=== PATIENT | female | born 1975 | race Hispanic/Latino ===

== ENCOUNTER 2018-09-03 10:06 | Emergency (ER) | payer MEDICAID, OTHER ==
[2018-09-03] MEDS: NS 1,000 ML IV (11:10)
[2018-09-03] MEDS: KETOROLAC 30 MG/ML VIAL (J1885) IV (11:11)
[2018-09-03] MEDS: diphenhydrAMINE INJ 50MG/ML VIAL (J1200) IV (11:13)
[2018-09-03] MEDS: METOCLOPRAMIDE INJ 10MG/2ML VIAL (J2765) IV (11:14)
== END 2018-09-03 13:03 | disposition home or self-care (01) ==
LOC: M ED 10:06
DX: G43.909 Migraine, unspecified, not intractable, without status migrainosus (principal); G43.709 Chronic migraine without aura, not intractable, without status migrainosus; Z86.73 Personal history of transient ischemic attack (TIA), and cerebral infarction without residual deficits; E03.9 Hypothyroidism, unspecified; Z88.8 Allergy status to other drugs, medicaments and biological substances; Z88.5 Allergy status to narcotic agent; Z88.1 Allergy status to other antibiotic agents; Z88.2 Allergy status to sulfonamides; Z79.890 Hormone replacement therapy
CPT/HCPCS: J1200

== ENCOUNTER → 2018-11-13 | Outpatient (REF) | payer MEDICAID ==
[~2018-11-13] MED LIST: AMIT10TA PO; FIOR1CAP PO; LEVO75TA4 PO
[2018-11-13 13:24] LABS: BASO # 0.1 10^3/uL (0.0-0.2); BASO % 0.7 % (0.0-1.0); EOS # 0.3 10^3/uL (0.0-0.50); EOS % 2.9 % (0.0-3.0); HEMATOCRIT 38.3 % (36.0-47.0); HEMOGLOBIN 12.3 g/dl (12.0-15.5); LYMPH # 1.8 10^3/uL (1.5-4.5); LYMPH % 20.1 % (24.0-44.0); MEAN CORPUSCULAR HEMOGLOBIN 28.3 pg (27.0-33.0); MEAN CORPUSCULAR HGB CONC 32.1 g/dl (32.0-36.5); MONO # 0.5 10^3/uL (0.0-0.8); MONO % 5.7 % (0.0-5.0); NEUTROPHILS # 6.4 10^3/uL (1.8-7.7); NEUTROPHILS % 69.8 % (36.0-66.0); PLATELET COUNT, AUTOMATED 312 10^3/uL (150-450); RED BLOOD COUNT 4.35 10^6/uL (4.00-5.40); WHITE BLOOD COUNT 9.1 10^3/uL (4.0-10.0)
[2018-11-13 13:26] LABS: ALBUMIN 3.6 GM/DL (3.2-5.2); ALT/SGPT 18 U/L (12-78); BILIRUBIN,TOTAL 0.3 MG/DL (0.2-1.0); BLOOD UREA NITROGEN 10 MG/DL (7-18); CALCIUM LEVEL 8.8 MG/DL (8.5-10.1); CARBON DIOXIDE LEVEL 28 MEQ/L (21-32); CHLORIDE LEVEL 105 MEQ/L (98-107); CHOLESTEROL LEVEL 167 MG/DL (<200); CHOLESTEROL RISK RATIO 3.711 (<5); CREATININE FOR GFR 0.75 MG/DL (0.55-1.30); FREE T4 0.92 NG/DL (0.76-1.46); GLOMERULAR FILTRATION RATE > 60.0 (>58); GLUCOSE, FASTING 86 MG/DL (70-100); HDL CHOLESTEROL 45 MG/DL (>40); LDL CHOLESTEROL 97 MG/DL (<100); NON-HDL-C 122 MG/DL; POTASSIUM SERUM 4.2 MEQ/L (3.5-5.1); SODIUM LEVEL 140 MEQ/L (136-145); TOTAL PROTEIN 7.2 GM/DL (6.4-8.2); TRIGLYCERIDES LEVEL 126 MG/DL (<150)
[2018-11-13 15:32] LABS: TOTAL 25(OH) VITAMIN D 18.2 NG/ML (30.0-100.0)
[2018-11-13 16:00] LABS: HEMOGLOBIN A1c 5.5 %
== END ==
LOC: M SFHCPLAZ 08:43
PROVIDERS: ATTEND Nurse Practitioner Family
DX: Z13.228 Encounter for screening for other metabolic disorders (principal); E03.9 Hypothyroidism, unspecified; E55.9 Vitamin D deficiency, unspecified

== ENCOUNTER → 2018-12-23 | Outpatient (REF) | payer MEDICAID ==
[2018-12-23 13:19] LABS: CK-MB VALUE MASS < 1.0 NG/ML (<3.6); CPK CREATINE PHOSPHOKINASE 50 U/L (26-192); TROPONIN I < 0.02 NG/ML (< 0.10)
== END ==
LOC: M SFHCPLAZ 09:32
PROVIDERS: ATTEND Nurse Practitioner Family
DX: R07.89 Other chest pain (principal)

== ENCOUNTER → 2019-03-18 | Outpatient (REF) | payer OTHER ==
[2019-03-18 12:20] LABS: BASO # 0.1 10^3/uL (0.0-0.2); BASO % 0.8 % (0.0-1.0); EOS # 0.3 10^3/uL (0.0-0.50); EOS % 3.5 % (0.0-3.0); HEMATOCRIT 39.1 % (36.0-47.0); HEMOGLOBIN 12.3 g/dl (12.0-15.5); LYMPH # 1.8 10^3/uL (1.5-4.5); LYMPH % 21.1 % (24.0-44.0); MEAN CORPUSCULAR HEMOGLOBIN 27.5 pg (27.0-33.0); MEAN CORPUSCULAR HGB CONC 31.5 g/dl (32.0-36.5); MEAN CORPUSCULAR VOLUME 87.3 fl (80.0-96.0); MONO # 0.6 10^3/uL (0.0-0.8); MONO % 7.1 % (0.0-5.0); NEUTROPHILS # 5.7 10^3/uL (1.8-7.7); NEUTROPHILS % 67.1 % (36.0-66.0); PLATELET COUNT, AUTOMATED 343 10^3/uL (150-450); RED BLOOD COUNT 4.48 10^6/uL (4.00-5.40); WHITE BLOOD COUNT 8.6 10^3/uL (4.0-10.0)
[2019-03-18 13:02] LABS: ALBUMIN 3.4 GM/DL (3.2-5.2); ALT/SGPT 21 U/L (12-78); BILIRUBIN,TOTAL 0.6 MG/DL (0.2-1.0); BLOOD UREA NITROGEN 10 MG/DL (7-18); CALCIUM LEVEL 8.6 MG/DL (8.5-10.1); CARBON DIOXIDE LEVEL 30 MEQ/L (21-32); CHLORIDE LEVEL 103 MEQ/L (98-107); CREATININE FOR GFR 0.73 MG/DL (0.55-1.30); FREE T4 0.94 NG/DL (0.76-1.46); GLOMERULAR FILTRATION RATE > 60.0 (>58); GLUCOSE, FASTING 76 MG/DL (70-100); POTASSIUM SERUM 4.1 MEQ/L (3.5-5.1); SODIUM LEVEL 139 MEQ/L (136-145); TOTAL PROTEIN 7.5 GM/DL (6.4-8.2)
[2019-03-18 13:08] LABS: TOTAL 25(OH) VITAMIN D 42.7 NG/ML (30.0-100.0)
== END ==
LOC: M SFHCPLAZ 10:09
PROVIDERS: ATTEND Nurse Practitioner Family
DX: Z13.228 Encounter for screening for other metabolic disorders (principal); E03.9 Hypothyroidism, unspecified; E55.9 Vitamin D deficiency, unspecified

== ENCOUNTER → 2019-04-27 | Outpatient (REF) | payer OTHER ==
[2019-04-29 14:29] LABS: HPV HYBRID CAPTURE II Positive (Negative)
== END ==
LOC: M SFHCPLAZ 10:35
PROVIDERS: ATTEND Nurse Practitioner Family
DX: Z01.419 Encounter for gynecological examination (general) (routine) without abnormal findings (principal)

== ENCOUNTER → 2019-04-30 | Outpatient (CLI) | payer OTHER ==
--- NOTE | 2019-05-01 00:15 | REP ---
Clinical: Menorrhagia . Technique: Transabdominal pelvic ultrasound followed by transvaginal examination for better evaluation of the endometrium and adnexa with color Doppler evaluation of the ovaries. Findings: Bladder is unremarkable and measures 7.5 x 4.3 x 5.2 cm . Anteverted uterus measures 10.4 x 5.8 x 6.4 cm with left submucosal fibroid measuring 4.2 x 3.5 x 2.6 cm . The endometrial complex measures 5.6 mm thickness. No discrete uterine or endometrial abnormalities are appreciated. Nabothian cysts noted. Bilateral ovaries are normal in appearance and vascularity without evidence for torsion. Right ovary measures 3.0 x 1.6 x 2.5 cm ; R I = 0.41 . Left ovary measures 2.3 x 1.4 x 2.0 ; R I = 0.60 . No pelvic fluid or adnexal mass lesion . Impression: 1. Anteverted uterus with 4.2 cm submucosal fibroid.
--- NOTE | 2019-06-01 08:38 | REPMRS ---
Patient History The patient states she had a clinical breast exam in 03/2019. No known family history of cancer. Digital Woman Screen Mammo: April 30, 2019 - Exam #: [id number] Bilateral CC and MLO view(s) were taken. Technologist: Georgette Jacobson, Technologist No prior studies available for comparison. FINDINGS: There are scattered fibroglandular densities. Attempts at retrieving outside prior radiographs were unsuccessful as of the dated this to interpretation. There is no evidence of dominant mass, architectural distortion, or grouped microcalcification typical of malignancy. 3-D tomosynthesis shows no additional findings. Assessment: BI-RADS/ACR category 1 mammogram. Negative Mammogram. Recommendation Routine screening mammogram of both breasts in 1 year (for women over age 40). This patient's Lifetime Breast Cancer RIsk is estimated at 11.6 %. This mammogram was interpreted with the aid of an FDA-approved computer-aided dectection system. Electronically Signed By: Jorje Nolasco MD 06/01/19 0837
== END ==
LOC: M WHC 10:46
PROVIDERS: ATTEND Nurse Practitioner Family
DX: Z12.31 Encounter for screening mammogram for malignant neoplasm of breast (principal); D25.0 Submucous leiomyoma of uterus; N92.0 Excessive and frequent menstruation with regular cycle

== ENCOUNTER 2019-07-10 07:47 | Emergency (ER) | payer MEDICAID, OTHER ==
[~2019-07-10] VITALS: Ht 152.4 cm; Wt 72.7 kg
[2019-07-10] MEDS ORDERED: ASPI81TA85 PO (08:13)
[2019-07-10] MEDS ORDERED: VITA500045 PO (08:13)
[2019-07-10 08:40] LABS: BASO # 0.1 10^3/uL (0.0-0.2); EOS # 0.7 10^3/uL (0.0-0.5); EOS % 7.3 % (0.0-3.0); HEMOGLOBIN 12.4 g/dl (12.0-15.5); LYMPH % 20.9 % (24.0-44.0); MEAN CORPUSCULAR HEMOGLOBIN 28.1 pg (27.0-33.0); MEAN CORPUSCULAR HGB CONC 32.6 g/dl (32.0-36.5); MONO # 0.6 10^3/uL (0.0-0.8); MONO % 6.1 % (0.0-5.0); NEUTROPHILS # 6.2 10^3/uL (1.5-8.5); NEUTROPHILS % 64.3 % (36.0-66.0); PLATELET COUNT, AUTOMATED 280 10^3/uL (150-450); RED BLOOD COUNT 4.42 10^6/uL (4.00-5.40); WHITE BLOOD COUNT 9.6 10^3/uL (4.0-10.0)
[2019-07-10 09:08] LABS: ALBUMIN 3.5 GM/DL (3.2-5.2); ALT/SGPT 24 U/L (12-78); BILIRUBIN,DIRECT < 0.1 MG/DL (0.0-0.2); BILIRUBIN,TOTAL 0.3 MG/DL (0.2-1.0); BLOOD UREA NITROGEN 12 MG/DL (7-18); CARBON DIOXIDE LEVEL 24 MEQ/L (21-32); CHLORIDE LEVEL 105 MEQ/L (98-107); CREATININE FOR GFR 0.87 MG/DL (0.55-1.30); GLOMERULAR FILTRATION RATE > 60.0 (>58); GLUCOSE, FASTING 86 MG/DL (70-100); LIPASE 138 U/L (73-393); POTASSIUM SERUM 3.7 MEQ/L (3.5-5.1); SODIUM LEVEL 140 MEQ/L (136-145); TOTAL PROTEIN 7.2 GM/DL (6.4-8.2)
--- NOTE | 2019-07-10 09:09 | REP ---
CHEST: Two views. There is no evidence of acute infiltrate. No pleural effusion is seen. The heart is normal in size. The mediastinal silhouette is unremarkable. The visualized osseous structures are intact. IMPRESSION: No acute pulmonary disease. Electronically Signed by González Hanson MD 07/10/2019 06:26 P
[2019-07-10 09:10] LABS: MONO SCRN NEGATIVE (NEGATIVE)
[2019-07-10] MEDS ORDERED: ISOVUE-370 76% 100ML VIAL (Q9967) As Ordered ONE (09:24)
[2019-07-10] MEDS ORDERED: NS 1,000 ML IV ONE (10:15)
[2019-07-10] MEDS ORDERED: ONDANSETRON 4MG/2ML VIAL (J2405) IV ONE (10:15)
--- NOTE | 2019-07-10 10:40 | REP ---
CT abdomen and pelvis with IV contrast: TECHNIQUE: Axial contrast enhanced images from the lung bases to the pubic symphysis using 100 mL Isovue 370 intravenous contrast material with multiplanar reformations. Visualized lung bases are clear. The liver demonstrates focal fatty infiltration along the fissure for ligamentum teres with no evidence of mass. The patient has had prior cholecystectomy. There is no biliary dilatation identified. The spleen is normal in size with no intrinsic abnormality. The adrenals and pancreas are unremarkable. There is a 2 mm intrarenal calculus in the upper pole of the right kidney without right hydronephrosis. There is mild left hydronephrosis. There is a large calculus in the left renal pelvis, which measures approximately 1.3 x 1.6 cm. There is a smaller adjacent calculus just superior to this in the left renal collecting system and another in the lower pole. There is no abdominal aortic aneurysm. There is no adenopathy. There is no free air or free fluid. There is no bowel wall thickening. The appendix is normal. There appears to be an anterior uterine fibroid approximately 2.5 cm in diameter. No ovarian mass is seen. Physiologic amount of free fluid is seen in the pelvis. The urinary bladder is mildly distended and grossly unremarkable. IMPRESSION: There is a 2 mm calculus in the upper pole of the right renal collecting system. There are three calculi in the left renal collecting system, largest is in the renal pelvis measuring approximately 1.3 x 1.6 cm. There is very mild left hydronephrosis. The appendix is normal. Tiny amount of physiologic free fluid is seen in the pelvis. No ovarian mass is seen. There is an anterior uterine fibroid. Electronically Signed by González Hanson MD 07/10/2019 06:41 P
[2019-07-10] MEDS ORDERED: KETOROLAC 30 MG/ML VIAL (J1885) IV ONE (11:00)
[2019-07-10] MEDS ORDERED: NITROFURANTOIN (MACROBID) 100 MG CAP PO ONE (11:45)
[2019-07-10] MEDS ORDERED: FLOM0.4C39 PO (12:03)
[2019-07-10] MEDS ORDERED: MACR100C43 PO (12:03)
[2019-07-10 12:23] VITALS: BP 130/62
[2019-07-23] MEDS ORDERED: ACET1TAB16 PO (12:54)
[2019-07-23] MEDS ORDERED: ZOFR4TAB16 PO (12:54)
[2019-07-23] MEDS ORDERED: AMIT25TA PO (12:54)
== END 2019-07-10 12:25 | disposition home or self-care (01) ==
LOC: M ED 07:47
DX: N20.0 Calculus of kidney (principal); E03.9 Hypothyroidism, unspecified; Z79.82 Long term (current) use of aspirin; Z79.899 Other long term (current) drug therapy; Z88.5 Allergy status to narcotic agent; Z88.6 Allergy status to analgesic agent; Z88.8 Allergy status to other drugs, medicaments and biological substances
CPT/HCPCS: 36415; 71046; 74177; 80048; 80076; 81001; 83690; 85025; 85379; 86308; 87086; 96361; 96374; 96375; 99284; J1885; J2405; Q9967

== ENCOUNTER → 2019-07-27 | Outpatient (REF) | payer OTHER ==
[~2019-07-27] MED LIST changes: +ACET1TAB16 PO; +AMIT25TA PO; +ASPI81TA85 PO; +DILA2TAB6 PO; +FLOM0.4C39 PO; +KETO10TAB PO; +MACR100C43 PO; +MACR50CA10 PO; +NITR50CA34 PO; +OXYB-54 PO; +PYRI1TAB5 PO; +TYLETAB14 PO; +VITA500045 PO; +ZOFR4TAB16 PO
[2019-07-27 14:25] LABS: APPEARANCE, URINE CLEAR (CLEAR); BACTERIA, URINE AUTO 1+ (NEGATIVE); BILIRUBIN, URINE AUTO NEGATIVE (NEGATIVE); BLOOD, URINE BLOOD 2+ (NEGATIVE); CALCIUM OXALATE CRYSTALS SMALL; COLOR, URINE YELLOW (YELLOW); GLUCOSE, URINE (UA) AUTO NEGATIVE (NEGATIVE); KETONE, URINE AUTO NEGATIVE (NEGATIVE); LEUKOCYTE ESTERASE, URINE AUTO 1+ (NEGATIVE); MUCUS, URINE SMALL (NEGATIVE); NITRITE, URINE AUTO NEGATIVE (NEGATIVE); PROTEIN, URINE AUTO 1+ mg/dL (NEGATIVE); RBC, URINE AUTO 6 /HPF (0-3); SQUAMOUS EPITHELIAL CELL UR AU 2 /HPF (0-6); UROBILINOGEN, URINE AUTO 0.2 mg/dL (0.0-2.0); WBC, URINE AUTO 26 /HPF (0-3)
== END ==
LOC: M SMT 12:34
PROVIDERS: ATTEND Nurse Practitioner Women's Health
DX: R30.0 Dysuria (principal)

== ENCOUNTER → 2019-07-29 | Outpatient (REF) | payer OTHER, MEDICAID ==
[~2019-07-29] MED LIST changes: -DILA2TAB6 PO; -MACR50CA10 PO; -NITR50CA34 PO; -OXYB-54 PO; -PYRI1TAB5 PO; -TYLETAB14 PO
== END ==
LOC: M LAB REF 17:43
PROVIDERS: ATTEND Obstetrics & Gynecology
DX: N93.9 Abnormal uterine and vaginal bleeding, unspecified (principal)

== ENCOUNTER → 2019-07-31 | Outpatient (CLI) | payer OTHER ==
[~2019-07-31] MED LIST changes: +MACR50CA10 PO; +OXYB5TAB2 PO; +PYRI1TAB5 PO; +TYLETAB14 PO
[2019-07-31 13:41] LABS: HEMATOCRIT 39.2 % (36.0-47.0); HEMOGLOBIN 12.3 g/dl (12.0-15.5); MEAN CORPUSCULAR HEMOGLOBIN 27.1 pg (27.0-33.0); MEAN CORPUSCULAR HGB CONC 31.4 g/dl (32.0-36.5); MEAN CORPUSCULAR VOLUME 86.3 fl (80.0-96.0); PLATELET COUNT, AUTOMATED 365 10^3/uL (150-450); RED BLOOD COUNT 4.54 10^6/uL (4.00-5.40); WHITE BLOOD COUNT 9.2 10^3/uL (4.0-10.0)
[2019-07-31 13:52] LABS: INR 0.99; PROTHROMBIN TIME 12.8 SECONDS (11.8-14.0)
[2019-07-31 13:53] LABS: PARTIAL THROMBOPLASTIN TIME 30.1 SECONDS (25.0-38.4)
[2019-07-31 14:04] LABS: HCG, SERUM QUALITATIVE NEGATIVE (NEGATIVE)
[2019-07-31 14:05] LABS: BLOOD UREA NITROGEN 11 MG/DL (7-18); CALCIUM LEVEL 9.2 MG/DL (8.5-10.1); CARBON DIOXIDE LEVEL 30 MEQ/L (21-32); CHLORIDE LEVEL 103 MEQ/L (98-107); CREATININE FOR GFR 0.96 MG/DL (0.55-1.30); GLOMERULAR FILTRATION RATE > 60.0 (>58); GLUCOSE, FASTING 87 MG/DL (70-100); POTASSIUM SERUM 4.2 MEQ/L (3.5-5.1); SODIUM LEVEL 138 MEQ/L (136-145)
--- NOTE | 2019-08-01 10:05 | ECGEPIP ---
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
== END ==
LOC: M LAB 12:57
PROVIDERS: ATTEND Nurse Practitioner Women's Health
DX: N20.0 Calculus of kidney (principal)

== ENCOUNTER 2019-08-03 17:06 | Emergency (ER) | payer OTHER ==
[~2019-08-03] VITALS: Ht 152.4 cm; Wt 73.9 kg
[~2019-08-03 17:06] MED LIST changes: -KETO10TAB PO; -MACR50CA10 PO; -OXYB5TAB2 PO; -PYRI1TAB5 PO; -TYLETAB14 PO
[2019-08-03] MEDS ORDERED: ACETAMINOPHEN 325 MG TAB PO ONE (19:30)
[2019-08-03] MEDS ORDERED: KETOROLAC 60 MG/2 ML VIAL (J1885) IM ONE (20:00)
--- NOTE | 2019-08-03 20:29 | REPVR ---
PROCEDURE INFORMATION: Exam: CT Abdomen And Pelvis Without Contrast Exam date and time: 08/03/2019 7:33 PM Clinical history: 44 years old, female; Abdominal pain; Flank; Left; Additional info: Dx w/renal calculi lt and RT side, pain intensified in llq TECHNIQUE: Imaging protocol: Computed tomography of the abdomen and pelvis without contrast. Radiation optimization: All CT scans at this facility use at least one of these dose optimization techniques: automated exposure control; mA and/or kV adjustment per patient size (includes targeted exams where dose is matched to clinical indication); or iterative reconstruction. COMPARISON: CT ABD/PEL W/IV CONTRAST ONLY 07/10/2019 9:30 AM FINDINGS: Liver: Small calcified granuloma in the right hepatic lobe. Gallbladder and bile ducts: The gallbladder is surgically absent. Pancreas: Unremarkable. No ductal dilation. Spleen: Unremarkable. Adrenals: Unremarkable. Kidneys and ureters: Redemonstration of bilateral renal calculi, largest in the left renal pelvis measuring 1.6 cm. No hydronephrosis. Stomach and bowel: Stomach is unremarkable. No small bowel obstruction. Large bowel is unremarkable. Appendix: The appendix is normal. Intraperitoneal space: No pneumoperitoneum. No significant fluid collection. Vasculature: Unremarkable. Lymph nodes: No enlarged lymph nodes. Bladder: Unremarkable. Reproductive: Unremarkable as visualized. Bones/joints: No acute osseus lesion or fracture. Soft tissues: Unremarkable. IMPRESSION: Redemonstration of bilateral renal calculi, largest in the left renal pelvis measuring 1.6 cm. No hydronephrosis. Electronically signed by: Joaquin Dumont On 08/03/2019 20:29:34 PM
[2019-08-03] MEDS ORDERED: KETO10TAB PO (20:57)
[2019-08-03 21:07] VITALS: BP 140/91
[2019-08-03] MEDS ORDERED: KETOROLAC TROMETHAMINE 10 MG TAB PO ONE (21:15)
== END 2019-08-03 21:24 | disposition home or self-care (01) ==
LOC: M ED 17:06
DX: N20.0 Calculus of kidney (principal); Z79.82 Long term (current) use of aspirin; Z79.899 Other long term (current) drug therapy; Z88.1 Allergy status to other antibiotic agents; Z88.8 Allergy status to other drugs, medicaments and biological substances; Z88.5 Allergy status to narcotic agent; Z88.2 Allergy status to sulfonamides
CPT/HCPCS: 74176; 81001; 96372; 99283; J1885

== ENCOUNTER → 2019-08-04 | Outpatient (REF) | payer OTHER ==
[~2019-08-04] MED LIST changes: +KETO10TAB PO
[2019-08-04 13:04] LABS: BASO # 0.1 10^3/uL (0.0-0.2); BASO % 0.7 % (0.0-1.0); EOS # 0.5 10^3/uL (0.0-0.5); EOS % 4.8 % (0.0-3.0); HEMATOCRIT 39.9 % (36.0-47.0); HEMOGLOBIN 12.4 g/dl (12.0-15.5); LYMPH # 1.4 10^3/uL (1.5-5.0); LYMPH % 12.5 % (24.0-44.0); MEAN CORPUSCULAR HEMOGLOBIN 27.3 pg (27.0-33.0); MEAN CORPUSCULAR HGB CONC 31.1 g/dl (32.0-36.5); MEAN CORPUSCULAR VOLUME 87.9 fl (80.0-96.0); MONO # 0.7 10^3/uL (0.0-0.8); MONO % 5.8 % (0.0-5.0); NEUTROPHILS # 8.5 10^3/uL (1.5-8.5); NEUTROPHILS % 75.8 % (36.0-66.0); PLATELET COUNT, AUTOMATED 358 10^3/uL (150-450); RED BLOOD COUNT 4.54 10^6/uL (4.00-5.40); WHITE BLOOD COUNT 11.3 10^3/uL (4.0-10.0)
[2019-08-04 13:17] LABS: ALBUMIN 3.5 GM/DL (3.2-5.2); ALT/SGPT 28 U/L (12-78); BILIRUBIN,TOTAL 0.3 MG/DL (0.2-1.0); BLOOD UREA NITROGEN 12 MG/DL (7-18); CALCIUM LEVEL 9.1 MG/DL (8.5-10.1); CARBON DIOXIDE LEVEL 30 MEQ/L (21-32); CHLORIDE LEVEL 106 MEQ/L (98-107); CREATININE FOR GFR 0.85 MG/DL (0.55-1.30); GLOMERULAR FILTRATION RATE > 60.0 (>58); GLUCOSE, FASTING 88 MG/DL (70-100); LIPASE 118 U/L (73-393); POTASSIUM SERUM 4.4 MEQ/L (3.5-5.1); SODIUM LEVEL 140 MEQ/L (136-145); TOTAL PROTEIN 7.4 GM/DL (6.4-8.2)
== END ==
LOC: M SFHCPLAZ 11:11
PROVIDERS: ATTEND Family Medicine
DX: R19.7 Diarrhea, unspecified (principal)

== ENCOUNTER 2019-08-11 08:42 | Day surgery (SDC) | payer OTHER ==
[~2019-08-11] VITALS: Ht 152.4 cm; Wt 72.6 kg
[~2019-08-11 08:42] MED LIST changes: +LR 1,000 ML IV ONE
[2019-08-11] MEDS ORDERED: PROPOFOL 200 MG/20 ML VIAL As Ordered ONE (11:15)
[2019-08-11] MEDS ORDERED: LIDOCAINE 2% INJ 100 MG/5 ML SDV (FOR ANES.) As Ordered ONE (11:15)
[2019-08-11] MEDS ORDERED: dexameTHASONE 4 MG/ML 1ML VIAL (J1100) As Ordered ONE ×2 (11:16→13:01)
[2019-08-11] MEDS ORDERED: ONDANSETRON 4MG/2ML VIAL (J2405) As Ordered ONE (11:16)
[2019-08-11] MEDS ORDERED: fentaNYL 100 MCG/2 ML INJECTION (J3010) As Ordered ONE (11:16)
[2019-08-11] MEDS ORDERED: MIDAZOLAM INJ 2 MG/2 ML VIAL (J2250) As Ordered ONE (11:16)
[2019-08-11] MEDS ORDERED: CONRAY-60 60% 50ML VIAL (Q9961) As Ordered ONE (12:10)
[2019-08-11] MEDS ORDERED: METOCLOPRAMIDE INJ 10MG/2ML VIAL (J2765) As Ordered ONE (12:51)
[2019-08-11] MEDS ORDERED: diphenhydrAMINE INJ 50MG/ML VIAL (J1200) As Ordered ONE (12:51)
[2019-08-11] MEDS ORDERED: ACETAMINOPHEN 1000MG 100ML IV BTL (OFIRMEV) (J0131 PER 10MG) As Ordered ONE (12:59)
[2019-08-11] MEDS ORDERED: GENTAMICIN 80 MG in IV 1 EA IV ONE (13:00)
[2019-08-11] MEDS ORDERED: KETOROLAC 60 MG/2 ML VIAL (J1885) As Ordered ONE (13:14)
[2019-08-11] MEDS ORDERED: TYLETAB14 PO (15:21)
[2019-08-11] MEDS ORDERED: MACR50CA10 PO (15:21)
[2019-08-11] MEDS ORDERED: OXYB5TAB2 PO (15:21)
[2019-08-11] MEDS ORDERED: PYRI1TAB5 PO (15:21)
[2019-08-11] MEDS: fentaNYL 100 MCG/2 ML INJECTION (J3010) IV PRN ×2 (15:25→15:30)
[2019-08-11] MEDS ORDERED: ONDANSETRON 4MG/2ML VIAL (J2405) IV PRN (16:00)
--- NOTE | 2019-08-11 16:01 | REP ---
C-ARM VIEWS DURING LEFT URETERAL STENT PLACEMENT: Two C-Arm views performed. Left ureteral stent is placed with the proximal end coiled in the region of the left pelvicaliceal system and the distal end coiled in the region of the urinary bladder. 23 seconds fluoroscopy time utilized. Electronically Signed by González Hanson MD 08/12/2019 12:28 P
[2019-08-11] MEDS ORDERED: ACETAMINOPH W/CODEINE #3 TAB UD As Ordered ONE (17:50)
[2019-08-11] MEDS ORDERED: PHENAZOPYRIDINE 100 MG TAB PO ONE (18:00)
[2019-08-11] MEDS ORDERED: oxyBUTYnin 5 MG TAB PO ONE (18:00)
[2019-08-11] MEDS ORDERED: ACETAMINOPH W/CODEINE #3 TAB UD PO PRN (18:15)
[2019-08-11 18:50] VITALS: BP 138/83
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
== END 2019-08-11 18:50 | disposition home or self-care (01) ==
LOC: M SDC 08:42
PROVIDERS: ATTEND Urology
DX: N20.0 Calculus of kidney (principal); E03.9 Hypothyroidism, unspecified; G43.909 Migraine, unspecified, not intractable, without status migrainosus; R19.7 Diarrhea, unspecified; Z88.1 Allergy status to other antibiotic agents; Z88.5 Allergy status to narcotic agent; Z88.8 Allergy status to other drugs, medicaments and biological substances; Z91.013 Allergy to seafood; Z91.018 Allergy to other foods
CPT/HCPCS: 52356; 74420; 82360; 88300; C1769; C1894; C2617; J0131; J1100; J1200; J1580; J1885; J2250; J2405; J2765; J3010

== ENCOUNTER 2019-08-18 21:36 | Emergency (ER) | payer OTHER ==
[~2019-08-18] VITALS: Ht 152.4 cm; Wt 70.9 kg
[~2019-08-18 21:36] MED LIST changes: -LR 1,000 ML IV ONE; +MACR50CA10 PO; +OXYB5TAB2 PO; +PYRI1TAB5 PO; +TYLETAB14 PO
[2019-08-18] MEDS ORDERED: NITR50CA34 PO (21:59)
[2019-08-18 23:29] LABS: BASO # 0.1 10^3/uL (0.0-0.2); BASO % 0.6 % (0.0-1.0); EOS % 5.8 % (0.0-3.0); HEMATOCRIT 37.1 % (36.0-47.0); HEMOGLOBIN 11.7 g/dl (12.0-15.5); LYMPH # 1.5 10^3/uL (1.5-5.0); LYMPH % 9.3 % (24.0-44.0); MEAN CORPUSCULAR HEMOGLOBIN 27.5 pg (27.0-33.0); MEAN CORPUSCULAR HGB CONC 31.5 g/dl (32.0-36.5); MEAN CORPUSCULAR VOLUME 87.1 fl (80.0-96.0); MONO # 1.1 10^3/uL (0.0-0.8); MONO % 6.6 % (0.0-5.0); NEUTROPHILS # 12.7 10^3/uL (1.5-8.5); NEUTROPHILS % 77.2 % (36.0-66.0); PLATELET COUNT, AUTOMATED 350 10^3/uL (150-450); RED BLOOD COUNT 4.26 10^6/uL (4.00-5.40); WHITE BLOOD COUNT 16.4 10^3/uL (4.0-10.0)
[2019-08-19] LABS: ALBUMIN 3.6 GM/DL (3.2-5.2); ALT/SGPT 20 U/L (12-78); BILIRUBIN,DIRECT < 0.1 MG/DL (0.0-0.2); BILIRUBIN,TOTAL 0.3 MG/DL (0.2-1.0); BLOOD UREA NITROGEN 14 MG/DL (7-18); CALCIUM LEVEL 8.9 MG/DL (8.5-10.1); CARBON DIOXIDE LEVEL 30 MEQ/L (21-32); CHLORIDE LEVEL 99 MEQ/L (98-107); CREATININE FOR GFR 1.44 MG/DL (0.55-1.30); GLOMERULAR FILTRATION RATE 42.1 (>58); GLUCOSE, FASTING 120 MG/DL (70-100); LIPASE 87 U/L (73-393); POTASSIUM SERUM 3.9 MEQ/L (3.5-5.1); SODIUM LEVEL 135 MEQ/L (136-145); TOTAL PROTEIN 7.3 GM/DL (6.4-8.2)
[2019-08-19] MEDS ORDERED: HYDROMORPHONE HCL 0.5 MG/ 0.5 ML SYRINGE (J1170 PER 1) IV PRN (01:00)
[2019-08-19] MEDS ORDERED: ONDANSETRON 4MG/2ML VIAL (J2405) IV ONE (01:00)
--- NOTE | 2019-08-19 01:34 | REPVR ---
PROCEDURE INFORMATION: Exam: CT Abdomen And Pelvis Without Contrast Exam date and time: 08/19/2019 12:49 AM Clinical history: 44 years old, female; Abdominal pain; Flank; Left; Prior surgery; Surgery date: Post-operative (0-2 days); Surgery type: Renal stent removed; Additional info: Left flank pain, recent stent removal, alba TECHNIQUE: Imaging protocol: Computed tomography of the abdomen and pelvis without contrast. Radiation optimization: All CT scans at this facility use at least one of these dose optimization techniques: automated exposure control; mA and/or kV adjustment per patient size (includes targeted exams where dose is matched to clinical indication); or iterative reconstruction. COMPARISON: CT ABD PELVIS W/O CONTRAST 08/03/2019 7:31 PM NON-OB COMPLETE US PELVIS 04/30/2019 10:15:44 AM FINDINGS: Lungs: There is bibasilar atelectasis. Heart: No cardiomegaly. No pericardial effusion. Liver: There is an unchanged punctate calcified granuloma in the posterior superior segment 7 of the right hepatic lobe. The contour of the liver is smooth. No hepatomegaly is noted. Incidental note is made of focal fatty infiltration of the liver adjacent to the falciform ligament. Gallbladder and bile ducts: There has been a cholecystectomy. There is no fluid collection in the gallbladder fossa. No dilation of the bile ducts is noted. Pancreas: Unremarkable. No ductal dilation. Spleen: Unremarkable. No splenomegaly. Adrenals: Normal. No mass. Kidneys and ureters: There are multiple calculi in the left ureter extending from the L4-L5 level to the S1-S2 level ranging in size from 2 mm to 5 mm (image 52 of the coronal series 2 image 2). There is a 2 mm calculus in the left ureterovesical junction and a 2 mm calculus located approximately 2 cm proximal to the left ureterovesical junction (images 61-62 coronal series 202). There is moderate left hydroureteronephrosis with left perinephric and left periureteral stranding. There are multiple calculi in the left renal collecting system, the largest measuring 10 mm in an inferior pole calyx. There are also several calculi in the the superior pole calyces of the right kidney measuring up to 3 mm. No perinephric fluid collection is noted. No renal mass is identified. Stomach and bowel: There is no evidence for a bowel obstruction, diverticulosis, diverticulitis, colitis, pneumatosis intestinalis, intussusception, volvulus, or perforated viscus. Appendix: Normal. No evidence for appendicitis. Intraperitoneal space: Unremarkable. No fluid collection. No free air. Retroperitoneal space: No fluid collection. No mass. Vasculature: No abdominal aortic aneurysm. Lymph nodes: Normal. No enlarged lymph nodes. Bladder: Unremarkable. No calculi or masses are noted in the bladder. Reproductive: There is a lobulated appearance of the anterior aspect of the body of the uterus that is similar compared to the prior CT on 08/03/2019. The ovaries are unremarkable. Bones/joints: The imaged bony structures are intact. There is no suspicious osteolytic or osteoblastic lesion. There are endplate spurs in the thoracic spine and lumbar spine. Soft tissues: There is a midline vertical incision scar in the anterior abdominal wall. No hernia. IMPRESSION: 1. Multiple calculi in the left ureter ranging in size from 2 mm to 5 mm and moderate left hydroureteronephrosis as detailed above. 2. Bilateral nephrolithiasis. Electronically signed by: Bj Chua On 08/19/2019 01:33:57 AM
[2019-08-19] MEDS ORDERED: FLOM0.4C39 PO (03:34)
[2019-08-19] MEDS ORDERED: DILA2TAB6 PO (03:34)
[2019-08-19] MEDS ORDERED: TAMSULOSIN 0.4 MG CAP PO ONE (03:45)
[2019-08-19 03:46] VITALS: BP 119/67
== END 2019-08-19 03:49 | disposition home or self-care (01) ==
LOC: M ED 21:36
DX: N13.2 Hydronephrosis with renal and ureteral calculous obstruction (principal); Z79.890 Hormone replacement therapy; Z79.899 Other long term (current) drug therapy; Z79.82 Long term (current) use of aspirin; Z87.442 Personal history of urinary calculi; Z98.890 Other specified postprocedural states; Z91.02 Food additives allergy status; Z88.1 Allergy status to other antibiotic agents; Z88.5 Allergy status to narcotic agent; Z88.2 Allergy status to sulfonamides
CPT/HCPCS: 36415; 74176; 80048; 80076; 81001; 83605; 83690; 85025; 87040; 87086; 96374; 96375; 99284; J1170; J2405

== ENCOUNTER → 2019-08-20 | Outpatient (REF) | payer OTHER ==
[~2019-08-20] MED LIST changes: +DILA2TAB6 PO; +NITR50CA34 PO
== END ==
LOC: M SMT 12:54
PROVIDERS: ATTEND Nurse Practitioner Women's Health
DX: N13.2 Hydronephrosis with renal and ureteral calculous obstruction (principal)

== ENCOUNTER → 2019-08-27 | Outpatient (CLI) | payer OTHER ==
--- NOTE | 2019-08-27 20:43 | REP ---
Clinical: Nephrolithiasis. Hydronephrosis. Technique: Real time hess scale ultrasound examination using curved array transducer. Findings: Right kidney is normal in contour, size, echogenicity, and reniform shape measuring 10.0 x 5.0 x 5.1 cm with mild hydronephrosis, but no evidence for nephrolithiasis, cystic or mass lesion. Left kidney is normal in contour, size, echogenicity measuring 10.7 x 4.2 x 4.8 cm and includes multiple small intrarenal calculi up to 6 mm along with moderate hydronephrosis. Bladder is grossly unremarkable and bilateral ureteral jets are identified which exclude complete ureteral obstruction. Impression: 1. Moderate left hydronephrosis with nephrolithiasis. 2. Mild right hydronephrosis without obvious nephrolithiasis. Electronically Signed by Hank Cisneros MD 08/27/2019 08:34 P
== END ==
LOC: M RAD 09:27
PROVIDERS: ATTEND Nurse Practitioner Women's Health
DX: N13.2 Hydronephrosis with renal and ureteral calculous obstruction (principal)

== ENCOUNTER → 2019-09-01 | Outpatient (REF) | payer OTHER, MEDICAID ==
[2019-09-01 18:02] LABS: APPEARANCE, URINE HAZY (CLEAR); BACTERIA, URINE AUTO NEGATIVE (NEGATIVE); BILIRUBIN, URINE AUTO NEGATIVE (NEGATIVE); BLOOD, URINE BLOOD 1+ (NEGATIVE); CALCIUM OXALATE CRYSTALS SMALL; COLOR, URINE YELLOW (YELLOW); GLUCOSE, URINE (UA) AUTO NEGATIVE (NEGATIVE); KETONE, URINE AUTO NEGATIVE (NEGATIVE); LEUKOCYTE ESTERASE, URINE AUTO NEGATIVE (NEGATIVE); MUCUS, URINE SMALL (NEGATIVE); NITRITE, URINE AUTO NEGATIVE (NEGATIVE); PROTEIN, URINE AUTO NEGATIVE (NEGATIVE); RBC, URINE AUTO 3 /HPF (0-3); SPECIFIC GRAVITY URINE AUTO 1.017 (1.002-1.035); SQUAMOUS EPITHELIAL CELL UR AU 1 /HPF (0-6); UROBILINOGEN, URINE AUTO 0.2 mg/dL (0.0-2.0); WBC, URINE AUTO 5 /HPF (0-3)
== END ==
LOC: M SMT 17:03
PROVIDERS: ATTEND Nurse Practitioner Women's Health
DX: R30.0 Dysuria (principal)

== ENCOUNTER → 2019-09-03 | Outpatient (REF) | payer OTHER, MEDICAID ==
[2019-09-03 15:11] LABS: APPEARANCE, URINE HAZY (CLEAR); BACTERIA, URINE AUTO NEGATIVE (NEGATIVE); BILIRUBIN, URINE AUTO NEGATIVE (NEGATIVE); BLOOD, URINE BLOOD 1+ (NEGATIVE); CALCIUM OXALATE CRYSTALS LARGE; COLOR, URINE YELLOW (YELLOW); GLUCOSE, URINE (UA) AUTO NEGATIVE (NEGATIVE); KETONE, URINE AUTO NEGATIVE (NEGATIVE); LEUKOCYTE ESTERASE, URINE AUTO 2+ (NEGATIVE); MUCUS, URINE SMALL (NEGATIVE); NITRITE, URINE AUTO NEGATIVE (NEGATIVE); PROTEIN, URINE AUTO NEGATIVE (NEGATIVE); RBC, URINE AUTO 7 /HPF (0-3); SPECIFIC GRAVITY URINE AUTO 1.019 (1.002-1.035); SQUAMOUS EPITHELIAL CELL UR AU 3 /HPF (0-6); UROBILINOGEN, URINE AUTO 0.2 mg/dL (0.0-2.0); WBC, URINE AUTO 42 /HPF (0-3)
== END ==
LOC: M SMT 13:37
PROVIDERS: ATTEND Nurse Practitioner Women's Health
DX: R30.0 Dysuria (principal)

== ENCOUNTER → 2019-09-28 | Outpatient (CLI) | payer OTHER ==
[~2019-09-28] MED LIST changes: -OXYB5TAB2 PO; +OXYB5TAB3 PO
--- NOTE | 2019-09-28 10:51 | REP ---
RENAL ULTRASOUND: Real-time sonographic evaluation of the kidneys performed. Kidneys are normal in size an echotexture, right kidney, measuring 9.2 x 4.2 x 3.5 cm and left kidney 10.5 x 3.4 x 4.5 cm. There is hydronephrosis bilaterally. Tiny calcification is suspected in the left lower pole collecting system 5 mm in maximum diameter. Urinary bladder is not well-distended. Ureteral jets could not be seen in the urinary bladder with Doppler color evaluation. IMPRESSION: No hydronephrosis. Suspect 5 mm calculus left lower pole. Electronically Signed by González Hanson MD 09/28/2019 03:51 P
== END ==
LOC: M RAD 09:46
PROVIDERS: ATTEND Nurse Practitioner Women's Health
DX: N20.0 Calculus of kidney (principal)

== ENCOUNTER → 2019-09-28 | Outpatient (CLI) | payer OTHER ==
[2019-09-28 14:10] LABS: BASO # 0.1 10^3/uL (0.0-0.2); EOS # 0.5 10^3/uL (0.0-0.5); HEMATOCRIT 38.4 % (36.0-47.0); HEMOGLOBIN 11.6 g/dl (12.0-15.5); LYMPH # 1.8 10^3/uL (1.5-5.0); LYMPH % 19.2 % (24.0-44.0); MEAN CORPUSCULAR HEMOGLOBIN 26.5 pg (27.0-33.0); MEAN CORPUSCULAR HGB CONC 30.2 g/dl (32.0-36.5); MEAN CORPUSCULAR VOLUME 87.9 fl (80.0-96.0); MONO # 0.5 10^3/uL (0.0-0.8); MONO % 5.4 % (0.0-5.0); NEUTROPHILS # 6.5 10^3/uL (1.5-8.5); NEUTROPHILS % 69.1 % (36.0-66.0); PLATELET COUNT, AUTOMATED 389 10^3/uL (150-450); RED BLOOD COUNT 4.37 10^6/uL (4.00-5.40); WHITE BLOOD COUNT 9.3 10^3/uL (4.0-10.0)
[2019-09-28 14:28] LABS: HEMOGLOBIN A1c 5.1 %
[2019-09-28 14:44] LABS: BLOOD UREA NITROGEN 14 MG/DL (7-18); CALCIUM LEVEL 9.4 MG/DL (8.5-10.1); CARBON DIOXIDE LEVEL 29 MEQ/L (21-32); CHLORIDE LEVEL 104 MEQ/L (98-107); CREATININE FOR GFR 0.88 MG/DL (0.55-1.30); FREE T4 1.07 NG/DL (0.76-1.46); GLOMERULAR FILTRATION RATE > 60.0 (>58); GLUCOSE, FASTING 84 MG/DL (70-100); POTASSIUM SERUM 4.1 MEQ/L (3.5-5.1); SODIUM LEVEL 138 MEQ/L (136-145); TOTAL 25(OH) VITAMIN D 20.3 NG/ML (30.0-100.0)
== END ==
LOC: M PLALAB 10:35
PROVIDERS: ATTEND Nurse Practitioner Family
DX: E03.9 Hypothyroidism, unspecified (principal); E55.9 Vitamin D deficiency, unspecified

== ENCOUNTER → 2019-10-22 | Outpatient (REF) | payer OTHER | LOC: M SFHCPLAZ 15:16 | PROVIDERS: ATTEND Physician Assistant Medical | DX: R50.9 Fever, unspecified (principal) ==

== ENCOUNTER → 2019-10-22 | Outpatient (CLI) | payer OTHER ==
--- NOTE | 2019-10-22 14:19 | REPPI ---
Clinical: Fever . Comparison: None . Technique: PA and lateral. Findings: The mediastinum and cardiac silhouette are normal. The lung brown are clear and without acute consolidation, effusion, or pneumothorax. The skeletal structures are intact and normal. Impression: 1. No acute cardiopulmonary process. Electronically Signed by Hank Cisneros MD 10/22/2019 02:10 P
== END ==
LOC: M PLAIMG 13:40
PROVIDERS: ATTEND Physician Assistant Medical
DX: R50.9 Fever, unspecified (principal)

== ENCOUNTER → 2019-12-23 | Outpatient (CLI) | payer OTHER ==
[~2019-12-23] MED LIST changes: +OXYB-54 PO; -OXYB5TAB3 PO
[2019-12-23 17:43] LABS: BASO # 0.1 10^3/uL (0.0-0.2); BASO % 1.3 % (0.0-1.0); EOS # 0.5 10^3/uL (0.0-0.5); EOS % 5.3 % (0.0-3.0); HEMATOCRIT 37.5 % (36.0-47.0); HEMOGLOBIN 11.6 g/dl (12.0-15.5); LYMPH # 2.4 10^3/uL (1.5-5.0); LYMPH % 25.5 % (24.0-44.0); MEAN CORPUSCULAR HEMOGLOBIN 25.4 pg (27.0-33.0); MEAN CORPUSCULAR HGB CONC 30.9 g/dl (32.0-36.5); MEAN CORPUSCULAR VOLUME 82.2 fl (80.0-96.0); MONO # 0.5 10^3/uL (0.0-0.8); MONO % 5.5 % (0.0-5.0); NEUTROPHILS # 5.9 10^3/uL (1.5-8.5); PLATELET COUNT, AUTOMATED 382 10^3/uL (150-450); RED BLOOD COUNT 4.56 10^6/uL (4.00-5.40); WHITE BLOOD COUNT 9.4 10^3/uL (4.0-10.0)
[2019-12-23 18:15] LABS: ALBUMIN 3.7 GM/DL (3.2-5.2); ALT/SGPT 28 U/L (12-78); BILIRUBIN,TOTAL 0.2 MG/DL (0.2-1.0); BLOOD UREA NITROGEN 9 MG/DL (7-18); CALCIUM LEVEL 8.8 MG/DL (8.5-10.1); CARBON DIOXIDE LEVEL 30 MEQ/L (21-32); CHLORIDE LEVEL 104 MEQ/L (98-107); CK-MB VALUE MASS < 1.0 NG/ML (<3.6); CPK CREATINE PHOSPHOKINASE 64 U/L (26-192); CREATININE FOR GFR 0.85 MG/DL (0.55-1.30); FREE T4 1.28 NG/DL (0.76-1.46); GLOMERULAR FILTRATION RATE > 60.0 (>58); GLUCOSE, FASTING 95 MG/DL (70-100); MB/CK RELATIVE INDEX 1.56 (< OR =4); POTASSIUM SERUM 3.9 MEQ/L (3.5-5.1); SODIUM LEVEL 139 MEQ/L (136-145); TOTAL 25(OH) VITAMIN D 24.4 NG/ML (30.0-100.0); TOTAL PROTEIN 7.5 GM/DL (6.4-8.2); TROPONIN I < 0.02 NG/ML (< 0.10); VITAMIN B12 LEVEL 532 PG/ML (247-911)
== END ==
LOC: M LAB 17:00
PROVIDERS: ATTEND Physician Assistant Medical
DX: R53.83 Other fatigue (principal); E55.9 Vitamin D deficiency, unspecified; D64.9 Anemia, unspecified

== ENCOUNTER → 2020-01-12 | Outpatient (CLI) | payer OTHER ==
--- NOTE | 2020-01-12 12:53 | REPPI ---
Clinical: Kidney stone. Technique: Single supine view of the abdomen and pelvis. Findings: Evidence of prior cholecystectomy. The urinary tract system is grossly unremarkable by radiographic evaluation and no obvious intrarenal or ureteral calculi are appreciated. The bowel gas pattern is nonspecific. The skeletal structures are intact. Impression: No obvious urinary tract calcifications identified by radiographic evaluation. Electronically Signed by Hank Cisneros MD 01/12/2020 12:44 P
== END ==
LOC: M PLAIMG 12:36
PROVIDERS: ATTEND Nurse Practitioner Women's Health
DX: N20.0 Calculus of kidney (principal)

== ENCOUNTER → 2020-03-18 | Outpatient (CLI) | payer OTHER ==
[~2020-03-18] MED LIST changes: +DOCU100C16 PO; +LEXA5TAB13 PO; +LOSA50TA88 PO; +ONDA4TAB6 PO
[2020-03-18 10:59] LABS: BLOOD UREA NITROGEN 12 MG/DL (7-18); CALCIUM LEVEL 8.7 MG/DL (8.5-10.1); CARBON DIOXIDE LEVEL 28 MEQ/L (21-32); CHLORIDE LEVEL 105 MEQ/L (98-107); GLOMERULAR FILTRATION RATE > 60.0 (>58); GLUCOSE, FASTING 99 MG/DL (70-100); SODIUM LEVEL 138 MEQ/L (136-145)
--- NOTE | 2020-03-18 22:17 | ECGEPIP ---
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 No significant change compared with 07/31/2019. Electronically Signed on 03-18-2020 22:16:55 EDT by John Nunez
== END ==
LOC: M LAB 09:43
PROVIDERS: ATTEND Anesthesiology

== ENCOUNTER → 2020-03-20 | Outpatient (CLI) | payer OTHER | LOC: M LABSMTC 10:52 | PROVIDERS: ATTEND Anesthesiology | DX: Z01.818 Encounter for other preprocedural examination (principal); Z11.59 Encounter for screening for other viral diseases | CPT/HCPCS: C9803; U0003 ==

== ENCOUNTER 2020-03-23 08:27 | Day surgery (SDC) | payer OTHER ==
[~2020-03-23] VITALS: Ht 152.4 cm; Wt 73.5 kg
[~2020-03-23 08:27] MED LIST changes: -DOCU100C16 PO; +LR 1,000 ML IV ONE; -ONDA4TAB6 PO; +ceFAZolin SOD 2 GM in IV 1 EA IV ONE
[2020-03-23] MEDS ORDERED: LIDOCAINE 2% 100MG/5ML SDV (FOR ANES.) As Ordered ONE (08:47)
[2020-03-23] MEDS ORDERED: MIDAZOLAM INJ 2MG/2ML VIAL (J2250 PER 1MG) As Ordered ONE (08:47)
[2020-03-23] MEDS ORDERED: fentaNYL 250 MCG/5 ML INJECTION (J3010) As Ordered ONE (08:47)
[2020-03-23] MEDS ORDERED: propofoL 200 MG/20 ML VIAL As Ordered ONE (08:47)
[2020-03-23] MEDS ORDERED: SUGAMMADEX SODIUM 500 MG/5 ML VIAL (BRIDION) As Ordered ONE (08:47)
[2020-03-23] MEDS ORDERED: ROCURONIUM BROMIDE 50 MG/5 ML VIAL As Ordered ONE ×2 (08:47→10:42)
[2020-03-23] MEDS ORDERED: dexameTHASONE 4 MG/ML 1ML VIAL (J1100 PER 1MG) As Ordered ONE (08:48)
[2020-03-23] MEDS ORDERED: ONDANSETRON 4MG/2ML VIAL As Ordered ONE (08:48)
[2020-03-23] MEDS ORDERED: SCOPOLAMINE 1MG TRANSDERMAL PATCH As Ordered ONE (09:15)
[2020-03-23] MEDS ORDERED: SCOPOLAMINE 1MG TRANSDERMAL PATCH TOP ONE (09:30)
[2020-03-23 09:36] LABS: HEMATOCRIT 39.1 % (36.0-47.0); HEMOGLOBIN 12.3 g/dl (12.0-15.5); MEAN CORPUSCULAR HGB CONC 31.5 g/dl (32.0-36.5); MEAN CORPUSCULAR VOLUME 85.7 fl (80.0-96.0); PLATELET COUNT, AUTOMATED 342 10^3/uL (150-450); RED BLOOD COUNT 4.56 10^6/uL (4.00-5.40); WHITE BLOOD COUNT 9.7 10^3/uL (4.0-10.0)
[2020-03-23] MEDS ORDERED: BUPIVACAINE HCL 0.25% 30ML VIAL As Ordered ONE (09:39)
[2020-03-23] MEDS ORDERED: METHYLENE BLUE 0.5% (5MG/ML) 10 ML AMP (PROVAYBLUE)(Q9968 PER 1MG) As Ordered ONE (09:40)
[2020-03-23 09:46] LABS: HCG, SERUM QUALITATIVE NEGATIVE (NEGATIVE)
[2020-03-23] MEDS ORDERED: ACETAMINOPHEN 1000MG 100ML IV BTL (OFIRMEV) (J0131 PER 10MG) As Ordered ONE (10:36)
[2020-03-23] MEDS ORDERED: KETOROLAC 60 MG/2 ML VIAL As Ordered ONE (11:02)
[2020-03-23] MEDS: LR 1,000 ML IV SCH ×2 (12:01→20:01)
[2020-03-23] MEDS ORDERED: ONDANSETRON 4MG/2ML VIAL IV PRN ×2 (12:15→12:30)
[2020-03-23] MEDS ORDERED: PROMETHAZINE INJ 25 MG/ML VIAL (J2550) IV PRN (12:15)
[2020-03-23] MEDS ORDERED: ACETAMINOPH W/CODEINE #3 TAB UD PO PRN ×2 (12:15)
[2020-03-23] MEDS ORDERED: LR 1,000 ML IV SCH (12:30)
[2020-03-23] MEDS ORDERED: fentaNYL 100 MCG/2 ML INJECTION (J3010) IV PRN (12:30)
[2020-03-23] MEDS ORDERED: HYDROMORPHONE HCL 0.5 MG/ 0.5 ML SYRINGE (J1170 PER 1) IV PRN (12:30)
[2020-03-23 15:00] VITALS: BP 123/63
[2020-03-23 15:30] VITALS: BP 120/74
[2020-03-23 16:00] VITALS: BP 127/67
[2020-03-23] MEDS ORDERED: ACET1TAB16 PO (16:53)
[2020-03-23] MEDS ORDERED: DOCU100C16 PO (16:53)
[2020-03-23 17:00] VITALS: BP 140/70
[2020-03-23 18:00] VITALS: BP 138/77
[2020-03-23] MEDS: ESCITALOPRAM OXALATE 5MG TABLET (LEXAPRO) PO SCH (18:24)
[2020-03-23] MEDS: KETOROLAC 30 MG/ML 1ML VIAL IV SCH ×2 (18:24→23:50)
[2020-03-23 19:00] VITALS: BP 125/71
[2020-03-23] MEDS: DOCUSATE SODIUM 100 MG CAP PO SCH (20:23)
[2020-03-23] MEDS ORDERED: AMITRIPTYLINE 25 MG TAB PO SCH (21:00)
[2020-03-24] VITALS: BP 115/62
[2020-03-24 04:00] VITALS: BP 103/56
[2020-03-24] MEDS: LR 1,000 ML IV SCH (04:01)
[2020-03-24] MEDS: KETOROLAC 30 MG/ML 1ML VIAL IV SCH ×2 (04:37→11:15)
[2020-03-24] MEDS ORDERED: LEVOTHYROXINE 75MCG TABLET (0.075MG) PO SCH (06:00)
[2020-03-24 07:03] LABS: BASO # 0.1 10^3/uL (0.0-0.2); BASO % 0.4 % (0.0-1.0); EOS # 0.1 10^3/uL (0.0-0.5); EOS % 0.5 % (0.0-3.0); HEMATOCRIT 33.1 % (36.0-47.0); HEMOGLOBIN 10.6 g/dl (12.0-15.5); LYMPH # 1.8 10^3/uL (1.5-5.0); MEAN CORPUSCULAR HEMOGLOBIN 27.2 pg (27.0-33.0); MEAN CORPUSCULAR VOLUME 85.1 fl (80.0-96.0); MONO % 6.3 % (0.0-5.0); NEUTROPHILS % 81.4 % (36.0-66.0); PLATELET COUNT, AUTOMATED 328 10^3/uL (150-450); RED BLOOD COUNT 3.89 10^6/uL (4.00-5.40); WHITE BLOOD COUNT 15.9 10^3/uL (4.0-10.0)
[2020-03-24 08:10] VITALS: BP 105/55
[2020-03-24] MEDS: ESCITALOPRAM OXALATE 5MG TABLET (LEXAPRO) PO SCH (08:14)
[2020-03-24] MEDS: DOCUSATE SODIUM 100 MG CAP PO SCH (08:14)
[2020-03-24 08:19] VITALS: BP 105/55
[2020-03-24] MEDS ORDERED: LOSARTAN 50MG TABLET PO SCH (09:00)
[2020-03-24] MEDS ORDERED: TAMSULOSIN 0.4 MG CAP PO SCH (09:00)
[2020-03-24 12:00] VITALS: BP 124/55
[2020-03-24] MEDS ORDERED: ONDA4TAB6 PO (15:44)
[2020-03-24] MEDS ORDERED: IBUPROFEN 800 MG TAB PO SCH (19:00)
== END 2020-03-24 16:00 | disposition home or self-care (01) ==
LOC: M SDC 08:27 → M PED 15:00 → M SDC 03-24 16:00
PROVIDERS: ATTEND Obstetrics & Gynecology
DX: N92.0 Excessive and frequent menstruation with regular cycle (principal); D25.0 Submucous leiomyoma of uterus; I10 Essential (primary) hypertension; G43.909 Migraine, unspecified, not intractable, without status migrainosus; E03.9 Hypothyroidism, unspecified; F41.9 Anxiety disorder, unspecified; D64.9 Anemia, unspecified; Z79.899 Other long term (current) drug therapy; Z79.82 Long term (current) use of aspirin; Z88.1 Allergy status to other antibiotic agents; Z91.013 Allergy to seafood; Z88.2 Allergy status to sulfonamides; Z88.8 Allergy status to other drugs, medicaments and biological substances; Z88.5 Allergy status to narcotic agent
CPT/HCPCS: 36415; 58571; 81025; 84703; 85025; 85027; 86850; 86900; 86901; 88309; 96374; 96375; 96376; J0131; J0690; J1100; J1885; J2250; J2405; J3010; Q9968

== ENCOUNTER 2020-06-09 15:01 | Emergency (ER) | payer MEDICAID, OTHER ==
[~2020-06-09] VITALS: Ht 152.4 cm; Wt 75.1 kg
[~2020-06-09 15:01] MED LIST changes: -ASPI81TA85 PO; +ASPI81TA86 PO; +DOCU100C16 PO; -LR 1,000 ML IV ONE; +ONDA4TAB6 PO; -ceFAZolin SOD 2 GM in IV 1 EA IV ONE
[2020-06-09] MEDS ORDERED: LEVOTHYROXINE (15:07)
[2020-06-09] MEDS ORDERED: COZA50TA (15:08)
[2020-06-09] MEDS ORDERED: NAPR-837 PO (19:11)
[2020-06-09] MEDS ORDERED: CYCL5TAB PO (19:11)
[2020-06-09] MEDS ORDERED: KETOROLAC TROMETHAMINE 10 MG TAB PO ONE (19:15)
[2020-06-09] MEDS ORDERED: CYCLOBENZAPRINE 10MG TABLET PO ONE (19:15)
[2020-06-09 19:19] VITALS: BP 148/84
== END 2020-06-09 19:25 | disposition home or self-care (01) ==
LOC: M ED 15:01
DX: M54.31 Sciatica, right side (principal); M54.32 Sciatica, left side; I10 Essential (primary) hypertension; E03.9 Hypothyroidism, unspecified; Z79.82 Long term (current) use of aspirin; Z79.899 Other long term (current) drug therapy; Z88.1 Allergy status to other antibiotic agents; Z88.6 Allergy status to analgesic agent; Z88.8 Allergy status to other drugs, medicaments and biological substances; Z91.02 Food additives allergy status

== ENCOUNTER → 2020-07-15 | Outpatient (REF) | payer OTHER ==
[~2020-07-15] MED LIST changes: +COZA50TA; +CYCL5TAB PO; +LEVOTHYROXINE; +NAPR-837 PO
[2020-07-15 14:24] LABS: AMORPHOUS SEDIMENT SMALL (NEGATIVE); APPEARANCE, URINE HAZY (CLEAR); BACTERIA, URINE AUTO 1+ (NEGATIVE); BILIRUBIN, URINE AUTO NEGATIVE (NEGATIVE); BLOOD, URINE BLOOD 2+ (NEGATIVE); COLOR, URINE YELLOW (YELLOW); GLUCOSE, URINE (UA) AUTO NEGATIVE (NEGATIVE); KETONE, URINE AUTO NEGATIVE (NEGATIVE); LEUKOCYTE ESTERASE, URINE AUTO 3+ (NEGATIVE); MUCUS, URINE SMALL (NEGATIVE); NITRITE, URINE AUTO NEGATIVE (NEGATIVE); PROTEIN, URINE AUTO NEGATIVE (NEGATIVE); RBC, URINE AUTO 9 /HPF (0-3); SPECIFIC GRAVITY URINE AUTO 1.012 (1.002-1.035); SQUAMOUS EPITHELIAL CELL UR AU 9 /HPF (0-6); UROBILINOGEN, URINE AUTO 0.2 mg/dL (0.0-2.0); WBC, URINE AUTO 3 /HPF (0-3)
== END ==
LOC: M SMT 13:22
PROVIDERS: ATTEND Nurse Practitioner Women's Health
DX: N20.0 Calculus of kidney (principal)

== ENCOUNTER 2020-07-19 11:02 | Emergency (ER) | payer OTHER ==
[~2020-07-19] VITALS: Ht 152.4 cm; Wt 75.9 kg
--- NOTE | 2020-07-19 11:49 | REPVR ---
PROCEDURE INFORMATION: Exam: XR Chest, 1 View Exam date and time: 07/19/2020 11:09 AM Age: 45 years old Clinical indication: Chest pain TECHNIQUE: Imaging protocol: XR of the chest Views: 1 view. COMPARISON: CR CHEST 2 VIEWS 10/22/2019 2:01 PM FINDINGS: Lungs: No acute airspace disease. Partial obscuration of the apices by the patient's mandible. Pleural space: No pleural effusion. Heart/Mediastinum: No cardiomegaly. Bones/joints: Mild degenerative change. IMPRESSION: No acute airspace or pleural disease. Electronically signed by: Jorge Martino On 07/19/2020 11:49:40 AM
[2020-07-19 12:06] LABS: BASO # 0.1 10^3/uL (0.0-0.2); BASO % 0.9 % (0.0-1.0); EOS # 0.5 10^3/uL (0.0-0.5); EOS % 4.9 % (0.0-3.0); HEMATOCRIT 39.9 % (36.0-47.0); HEMOGLOBIN 12.6 g/dl (12.0-15.5); LYMPH # 1.8 10^3/uL (1.5-5.0); MEAN CORPUSCULAR HEMOGLOBIN 27.2 pg (27.0-33.0); MEAN CORPUSCULAR HGB CONC 31.6 g/dl (32.0-36.5); MEAN CORPUSCULAR VOLUME 86.2 fl (80.0-96.0); MONO # 0.5 10^3/uL (0.0-0.8); MONO % 4.7 % (0.0-5.0); NEUTROPHILS # 6.8 10^3/uL (1.5-8.5); NEUTROPHILS % 70.2 % (36.0-66.0); PLATELET COUNT, AUTOMATED 355 10^3/uL (150-450); RED BLOOD COUNT 4.63 10^6/uL (4.00-5.40); WHITE BLOOD COUNT 9.7 10^3/uL (4.0-10.0)
[2020-07-19 12:26] LABS: BLOOD UREA NITROGEN 10 MG/DL (7-18); CARBON DIOXIDE LEVEL 29 MEQ/L (21-32); CHLORIDE LEVEL 105 MEQ/L (98-107); CREATININE FOR GFR 0.91 MG/DL (0.55-1.30); GLOMERULAR FILTRATION RATE > 60.0 (>58); GLUCOSE, FASTING 109 MG/DL (70-100); POTASSIUM SERUM 4.5 MEQ/L (3.5-5.1); SODIUM LEVEL 137 MEQ/L (136-145)
[2020-07-19 12:29] LABS: ALBUMIN 3.5 GM/DL (3.2-5.2); ALT/SGPT 28 U/L (12-78); BILIRUBIN,DIRECT < 0.1 MG/DL (0.0-0.2); BILIRUBIN,TOTAL 0.4 MG/DL (0.2-1.0); LIPASE 107 U/L (73-393); TOTAL PROTEIN 7.8 GM/DL (6.4-8.2)
--- NOTE | 2020-07-19 12:43 | REPVR ---
PROCEDURE INFORMATION: Exam: US Duplex Left Upper Extremity Veins, Limited Exam date and time: 07/19/2020 12:19 PM Age: 45 years old Clinical indication: Pain; Swelling (edema) of limb; Upper extremity, left; Arm, upper; Additional info: Arm pain swelling TECHNIQUE: Imaging protocol: Real-time Duplex ultrasound of the Left Upper Extremity with 2-D hess scale, color Doppler flow and spectral waveform analysis with image documentation. Limited exam focused on the left upper extremity veins. COMPARISON: No relevant prior studies available. FINDINGS: Left deep veins: Unremarkable. Axillary and brachial veins are patent throughout without thrombus. Normal Doppler waveforms. Normal compressibility and/or augmentation response. Visualized internal jugular and subclavian veins are patent. Left superficial veins: Unremarkable. Visualized cephalic and basilic veins are patent without thrombus. Soft tissues: Unremarkable. IMPRESSION: No evidence of deep vein thrombosis. Electronically signed by: Jimmy Dominguez On 07/19/2020 12:42:53 PM
--- NOTE | 2020-07-19 15:05 | REPVR ---
PROCEDURE INFORMATION: Exam: MR Cervical Spine Without Contrast Exam date and time: 07/19/2020 1:58 PM Age: 45 years old Clinical indication: Neck pain; Patient HX: Lt arm pain, weakness; Additional info: Left arm weak TECHNIQUE: Imaging protocol: Multiplanar magnetic resonance images of the cervical spine without intravenous contrast. COMPARISON: No relevant prior studies available. FINDINGS: Vertebrae: Unremarkable. Spinal cord: Normal signal. No cord compression. Discs/Spinal canal/Neural foramina: C2/3: No acute abnormality. C3/4: No acute abnormality. C4/5: Minimal disc desiccation. Minimal central disc bulging without spinal stenosis. Normal foramina. C5/6: Small central annular fissure and small disc bulging. Mild spinal stenosis at 8.2 mm. Normal foramina. C6/7: No acute abnormality. C7/T1: No acute abnormality. Vasculature: Expected flow voids in the vertebral arteries. Soft tissues: Unremarkable IMPRESSION: Central disc bulging and annular fissure at C5/6 with mild spinal stenosis. Electronically signed by: Jimmy Dominguez On 07/19/2020 15:04:18 PM
--- NOTE | 2020-07-19 15:07 | REPVR ---
PROCEDURE INFORMATION: Exam: MR Head Without Contrast Exam date and time: 07/19/2020 1:58 PM Age: 45 years old Clinical indication: Patient HX: Lt arm pain, weakness; Additional info: Left arm weak TECHNIQUE: Imaging protocol: MR of the head without contrast. COMPARISON: CT Head without contrast 09/03/2018 10:50 AM FINDINGS: Brain: Normal. No acute infarct. No hemorrhage. No significant white matter disease. No edema. 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 Cerebral ventricles: Normal. No ventriculomegaly. Bones/joints: Unremarkable. Paranasal sinuses: Normal as visualized. No acute sinusitis. Mastoid air cells: Normal as visualized. No mastoid effusion. Orbits: Unremarkable. Soft tissues: Unremarkable. IMPRESSION: No acute findings. Electronically signed by: Jimmy Dominguez On 07/19/2020 15:07:38 PM
--- NOTE | 2020-07-19 15:23 | ECGEPIP ---
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
[2020-07-19 15:43] VITALS: BP 116/67
--- NOTE | 2020-07-20 18:20 | ED PDOC ---
Post-Departure Follow-Up elyse garcía faxed formal report of mri c spine for fu Neha Murray MD Jul 20, 2020 18:19
== END 2020-07-19 15:47 | disposition home or self-care (01) ==
LOC: M ED 11:02
DX: R20.2 Paresthesia of skin (principal); M50.221 Other cervical disc displacement at C4-C5 level; M50.222 Other cervical disc displacement at C5-C6 level; I10 Essential (primary) hypertension; E07.9 Disorder of thyroid, unspecified; F41.9 Anxiety disorder, unspecified; G43.909 Migraine, unspecified, not intractable, without status migrainosus; Z79.82 Long term (current) use of aspirin; Z79.899 Other long term (current) drug therapy; Z91.02 Food additives allergy status; Z88.1 Allergy status to other antibiotic agents; Z88.8 Allergy status to other drugs, medicaments and biological substances; Z88.5 Allergy status to narcotic agent; Z88.2 Allergy status to sulfonamides

== ENCOUNTER → 2020-09-07 | Outpatient (REF) | payer OTHER ==
[2020-09-07 18:23] LABS: FREE T4 0.94 NG/DL (0.76-1.46); THYROID STIMULATING HORMONE 1.85 uIU/ML (0.358-3.740)
[2020-09-07 18:24] LABS: TOTAL 25(OH) VITAMIN D 17.7 NG/ML (30.0-100.0)
== END ==
LOC: M SFHCPLAZ 15:44
PROVIDERS: ATTEND Nurse Practitioner Family
DX: E03.9 Hypothyroidism, unspecified (principal); E55.9 Vitamin D deficiency, unspecified

== ENCOUNTER 2020-12-08 14:10 | Emergency (ER) | payer OTHER ==
[~2020-12-08] VITALS: Ht 152.4 cm; Wt 76.6 kg
[~2020-12-08 14:10] MED LIST changes: -AMIT25TA PO; +AMIT25TA17 PO
--- OUTSIDE RECORDS SUMMARY | 2020-12-08 14:18 | CCD ---
Author Author [facility] em[facility] Organization [facility] ems Address Unknown Phone Unavailable Care Team Providers Care Sustainable Agriculture Specialist Name Role Phone Gay Schmitz Unavailable PROBLEMS Type Condition ICD9-CM Code TPD31-PP Code Onset Dates Condition S tatus W/U Status Risk SNOMED Code Notes Problem Hypothyroidism E03.9 Active confirmed 37662 008 Problem Vitamin D deficiency, unspecified E55.9 Active con firmed 11567226 Problem Obesity E66.9 Active confirmed 013126647 Problem Essential hypertension I10 Active confirmed 13116775 Problem Allergic rhinitis J30.9 Active confirmed 61 521175 Problem Lumbago with sciatica, right side M54.41 Active confirmed 149984700535119 Problem Headache, migraine G43.909 Active confirmed 19059985 Problem Situational stress F43.9 Active confirmed 7 5745251 Problem Generalized anxiety disorder F41.1 Active confirme d 62755348 Problem Major depressive disorder F32.9 Active confirmed 743336520 ALLERGIES Allergen (clinical drug ingredient) Drug/Non Drug Allergy do cumented on EMR Reaction Allergy Type Onset Date Status morphine Morphine Sulfate(NDC Code:[address]-28) Rash Drug A llergy Active Rocephin Hives Drug Allergy Active acetaminophen / oxycodone Percocet(NDC Code:[address]-14) Rash Drug Allergy Active cod fish Rash Non Drug Allergy Active pineapple Rash Non Drug Allergy Active Nubain Rash Drug Allergy Active clarithromycin Biaxin Anaphylaxis Drug Allergy Active sumatriptan Imitrex(NDC Code:[address]-85) Hives Drug Allergy Active loratadine Alavert(NDC Code:[address]-17) Rash Drug Allergy Active tramadol Ultram(NDC Code:[address]-38) Rash Drug Allergy Active Levaquin Rash Drug Allergy Active clindamycin Cleocin([facility] Code:[address]-15) Rash Drug Allergy Active shrimp Rash Non Drug Allergy Active Septra Rash Drug Allergy Active xanaplex Hives Non Drug Allergy Active ciprofloxacin Cipro([facility] Code:[address]-64) Rash Drug Allergy Active dark chocolate Rash Non Drug Allergy Acti ve Darvocet-N 50 Rash Drug Allergy Active Vicodin Rash Drug Allergy Active ENCOUNTERS from 1975 to 2020-11-26 Encounter Location Date Provider Diagnosis [facility] [address] [place] [address] Nov, Gay Fernandoosairaj Hypothyroidism E03.9 IMMUNIZATIONS No Information SOCIAL HISTORY Tobacco Use: Social History Observation Description Date Details (start date - stop date) Never Smoker Sex Assigned At : Social History Observation Description Sex Assigned At Unknown Education: Question Answer Notes Level of Education: Finished High School Audit Question Answer Notes Total Score: 0 Interpretation: Alcohol Education Language: Question Answer Notes Languages spoken: Both Japanese and Cymraes Sikhism: Question Answer Notes Sikhism 08 [employer] and Alcohol Question Answer Notes Total Score: 0 Interpretation: No problems reported Alcohol Screening: Question Answer Notes Did you have a drink containing alcohol in the past year? No Points 0 Interpretation Negative Tobacco Use: Question Answer Notes Are you a: never smoker REASON FOR REFERRAL No Information VITAL SIGNS No information MEDICATIONS Medication SIG (Take, Route, Frequency, Duration) Notes Start Da te End Date Status Losartan Potassium 25 MG 1 tablet Orally bid for 90 day(s) Active EpiPen 2-Bryce 0.3 MG/0.3ML as directed Injection Daily as needed for 30 Days Nov, Active Flonase Allergy Relief 50 MCG/ACT 1 spray in each nost ril Nasally Once a day for 14 day(s) Oct, Active Albuterol Sulfate HFA 108 (90 Base) MCG/ACT 1 puff as needed Inhalation every 6 hrs for 30 Days Oct, Active SM Aspirin Adult Low Strength 81 MG TAKE ONE TABLET BY MOUTH ONCE DAILY for 30 Active Levothyroxine Sodium 75 MCG 1 tablet on an empty stoma ch in the morning Orally Once a day for 30 Active Amitriptyline HCl 25 mg 1 tab Orally Once a day Active Ergocalciferol 33972 UNIT 1 capsule Orally every 2 weeks for 30 day(s ) Active Aspir-81 81 MG 1 tablet Orally Once a day for 90 day(s) Active Amitriptyline HCl 25 MG 1 tablet at bedtime Orally Once a day fo r 90 day(s) Nov, Active PROCEDURES No Information RESULTS No Results REASON FOR VISIT New Refill Request MEDICAL (GENERAL) HISTORY Type Description Date Medical History Hypothyroidism Medical History Migraine headache, common type- Medical History situational stress Medical History 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: Sinus rhyth m/sinus tachycardia Medical History kidney stones Medical History anxiety Medical History hypertension Medical History Central cervical disc bulgin g and annular fissure at C5-6 c mild spinal stenosis -06/2020 MRI cervical spine- [facility] Surgical History c section 2004 Surgical History gallbladder removal 2000 Surgical History cyst removal of sinuses 1999 Surgical History fallopian tube tied 2000 Surgical History lithotripsy Surgical History ureteroscopy with double j stent Surgical History cysto, laser lithotripsy of stone Surgical History RALH, OBS, cystoscopy 03/23/20 Surgical History partial hysterectomy 03/23/2020 Hospitalization History as above Goals Section No Information Health Concerns No Information MEDICAL EQUIPMENT No Information MENTAL STATUS No Information FUNCTIONAL STATUS No Information ASSESSMENTS Encounter Date Diagnosis Assessment Notes Treatment Notes Treatm ent Clinical Notes Nov, Hypothyroidism (ICD-10 - E03.9) PLAN OF TREATMENT Medication Medication Name Sig Start Date Stop Date Losartan Potassium 25 MG 1 tablet Orally bid for 90 day(s) Ergocalciferol 24641 UNIT 1 capsule Orally every 2 weeks for 30 day(s) SM Aspirin Adult Low Strength 81 MG TAKE ONE TABLET BY MOUTH ONCE DAILY for 30 Amitriptyline HCl 25 mg 1 tab Orally Once a day Levothyroxine Sodium 75 MCG 1 tablet on an empty stoma ch in the morning Orally Once a day for 30 Next Appt Details Provider Name:Jojo Hernandez, 2020-12-20 6 10:45:00 AM, [address] [place] [place], [address], Provider Name:Gay Schmitz, 03-08 03:00:00 PM, [address] [place], [address], Insurance Providers Payer Name Payer Address Payer Phone Insured Name Patient Relati onship to Insured Coverage Start Date Coverage End Date [facility] [employer] [facility] [address] [facility] [phone] SHEA STEVENSON self
--- OUTSIDE RECORDS SUMMARY | 2020-12-08 14:18 | CCD | Continuity of Care Document ---
Author Author Molly DOHERTY PA Organization Unknown Address [address] [place] [address] Phone [phone] Care Team Providers Care Strategic Alliances Manager Name Role Phone Africa Perez PA-C AUTM Unavailable Gay Schmitz AUTM [phone] Problems Description No Information Available Social History Type Date Description Comments Sex Unknown Allergies, Adverse Reactions, Alerts Active Allergies Reaction Severity Comments Date Alavert 09/20/2020 Biaxin 09/20/2020 Morphine 09/20/2020 Percocet 09/20/2020 Vicodin 09/20/2020 Ultram 09/20/2020 Cleocin 09/20/2020 Sulfamethoxazole / Trimethoprim 09/20/2020 Levaquin 09/20/2020 Cipro 09/20/2020 Nalbuphine 09/20/2020 Ceftriaxone 09/20/2020 Imitrex 09/20/2020 Pineapple 09/20/2020 Fish-derived Products 2019 Shrimp 09/20/2020 Oranges 09/20/2020 Medications Active Medications SIG Qnty Indications Ordering Provide r Date Duloxetine HCL 20mg Caps DR Armando 1 by mouth every morning x2 weeks then increase to 2 caps by mouth daily (DO Not Start Until Off Lexapro) 60caps M47.817 Fernandez Smith MD Methocarbamol 500mg Tablets 1-2 by mouth three times a day as needed for spasm 180tabs M47.817 Fernandez Smith MD 09/09/2020 Levothyroxine Sodium 75mcg Tablets Take One Tablet By Mouth Every Morning On An Empty Stomach Unknown Escitalopram Oxalate 5mg Tablets Africa Perez PA-C Amitriptyline HCL 25mg Tablets Lazaro Zabala MD Losartan Potassium 50mg Tablets Africa Perez PA-C Epinephrine 0.3mg/0. 3ML Solution Auto-Inject Use as Directed as Needed Unknown Albuterol Sulfate HFA 108(90Base) mcg/Act Aerosol Gay Schmitz FNP History Medications Gabapentin 100mg Capsules 1 cap po tid x1 week, then 2 caps po tid x1 week, then 3 caps po tid 270caps M47.812 Fernandez Smith MD 07/29/2020 - 09/09/2020 Immunizations Description No Information Available Vital Signs Date Vital Result Comment 07/29/2020 9:38am Body Temperature 97.1 F Height 60 inches 5'0" Weight 164.12 lb BMI (Body Mass Index) 32.0 kg/m2 Results Description No Information Available Procedures Date Code Description Status 09/05/2020 14099 Manual Therapy Each 15 Minutes C ompleted 09/05/2020 88064 Therapeutic Procedure, Each 15 M inutes Completed 09/05/2020 13585 Hot Or Cold Packs Completed 09/01/2020 88122 Manual Therapy Each 15 Minutes C ompleted 09/01/2020 39576 Therapeutic Procedure, Each 15 M inutes Completed 08/26/2020 30698 Manual Therapy Each 15 Minutes C ompleted 08/26/2020 66709 Therapeutic Procedure, Each 15 M inutes Completed 08/26/2020 83943 Hot Or Cold Packs Completed 08/24/2020 00470 Physical Therapy Eval - Low Comp lexity Completed Medical Devices Description No Information Available Encounters Type Date Location Provider Dx Diagnosis Office Visit 09/09/2020 11:00a ZI Mitchell M47.812 Spondylosis w/o myelopathy or radiculopathy, cervical region M50.320 Other cerv disc degeneration , mid-cervical rgn, unsp level M47.817 Spondyls w/o myelopathy or r adiculopathy, lumbosacr region M51.37 Other intervertebral disc de generation, lumbosacral region Office Visit 07/29/2020 9:30a ZI Mitchell M47.812 Spondylosis w/o myelopathy or radiculopathy, cervical region M50.320 Other cerv disc degeneration , mid-cervical rgn, unsp level M47.817 Spondyls w/o myelopathy or r adiculopathy, lumbosacr region M51.37 Other intervertebral disc de generation, lumbosacral region Assessments Date Code Description Provider 09/09/2020 M47.812 Spondylosis without myelopathy or radiculopathy, cervical region Ermias Doherty PA 09/09/2020 M50.320 Other cervical disc degeneration, mid-cervical region, unspecified level Ermias Doherty PA 09/09/2020 M47.817 Spondylosis without myelopathy or radiculopathy, lumbosacral region Ermias Doherty PA 09/09/2020 M51.37 Other intervertebral disc degene ration, lumbosacral region Ermias Doherty PA 09/05/2020 M47.812 Spondylosis without myelopathy or radiculopathy, cervical region Hugo Knox, PT, DPT 09/05/2020 M50.320 Other cervical disc degeneration, mid-cervical region, unspecified level Hugo Knox, PT, DPT 09/05/2020 M47.817 Spondylosis without myelopathy or radiculopathy, lumbosacral region Hugo Knox, PT, DPT 09/05/2020 M51.37 Other intervertebral disc degene ration, lumbosacral region Hugo Knox, PT, DPT 09/01/2020 M47.812 Spondylosis without myelopathy or radiculopathy, cervical region Danamarie Ortolano, CHRONOMETER ASSEMBLER AND ADJUSTER 09/01/2020 M50.320 Other cervical disc degeneration, mid-cervical region, unspecified level Danamarie Ortolano, CHRONOMETER ASSEMBLER AND ADJUSTER 09/01/2020 M47.817 Spondylosis without myelopathy or radiculopathy, lumbosacral region Danamarie Ortolano, CHRONOMETER ASSEMBLER AND ADJUSTER 09/01/2020 M51.37 Other intervertebral disc degene ration, lumbosacral region Danamarie Ortolano, CHRONOMETER ASSEMBLER AND ADJUSTER 08/26/2020 M47.812 Spondylosis without myelopathy or radiculopathy, cervical region Hugo Knox, PT, DPT 08/26/2020 M50.320 Other cervical disc degeneration, mid-cervical region, unspecified level Hugo DestiniRajwinder Knox, PT, DPT 08/26/2020 M47.817 Spondylosis without myelopathy or radiculopathy, lumbosacral region Hugo Knox, PT, DPT 08/26/2020 M51.37 Other intervertebral disc degene ration, lumbosacral region Hugo DestiniRajwinder Knox, PT, DPT 08/24/2020 M47.812 Spondylosis without myelopathy or radiculopathy, cervical region Hugo Knox, PT, DPT 08/24/2020 M50.320 Other cervical disc degeneration, mid-cervical region, unspecified level Hugo Knox, PT, DPT 08/24/2020 M47.817 Spondylosis without myelopathy or radiculopathy, lumbosacral region Hugo Knox, PT, DPT 08/24/2020 M51.37 Other intervertebral disc degene ration, lumbosacral region Hugo Knox, PT, DPT 07/29/2020 M47.812 Spondylosis without myelopathy or radiculopathy, cervical region ZI Palomino 07/29/2020 M50.320 Other cervical disc degeneration, mid-cervical region, unspecified level ZI Palomino 07/29/2020 M47.817 Spondylosis without myelopathy or radiculopathy, lumbosacral region ZI Palomino 07/29/2020 M51.37 Other intervertebral disc degene ration, lumbosacral region ZI Palomino Plan of Treatment 09/09/2020 - ZI Palomino* M47.812 Spondylosis without myelopathy or radiculopathy, cervical region * M50.320 Other cervical disc degeneration, mid-cervical region, unspecified level * M47.817 Spondylosis without myelopathy or radiculopathy, lumbosacral region* New Medication:* Duloxetine HCL 20 mg - 1 by mouth every morning x2 weeks then increase to 2 caps by mouth daily (DO Not Start Until Off Lexapro) * Methocarbamol 500 mg - 1-2 by mouth three times a day as needed for spasm * Follow up:* after MRI results with [facility] * M51.37 Other intervertebral disc degeneration, lumbosacral region Functional Status Description No Information Available Mental Status Description No Information Available Referrals Refer to Dr Reason for Referral Status Appt Date Jorge Borges MD authorization for physical t herapy evaluation [phone] Cervical/Lumbar Spine. Patient Coming here. Passed to PT Dept. AC Created [address] [place] [address] [phone] Jorge Borges MD physical therapy authorizati on cervical/lumbar. Passed to physical therapy dept. ac Created [address] [place] [address] [phone]
--- OUTSIDE RECORDS SUMMARY | 2020-12-08 14:18 | CCD | Continuity of Care Document ---
Author Author Molly RUSSO DPT Organization Unknown Address [address] [place] [address] Phone [phone] Care Team Providers Care Bicycle Courier Name Role Phone Africa Perez PA-C [employer]ini Unavailable Gay Schmitz AUTM [phone] Problems Description No Information Available Social History Type Date Description Comments Sex Unknown Allergies, Adverse Reactions, Alerts Description No Information Available Medications Active Medications SIG Qnty Indications Ordering [...] Available Procedures Date Code Description Status 09/05/2020 80691 Manual Therapy Each 15 Minutes C ompleted 09/05/2020 79343 Therapeutic Procedure, Each 15 M inutes Completed 09/05/2020 93291 Hot Or Cold Packs Completed 09/01/2020 05933 Manual Therapy Each 15 Minutes C ompleted 09/01/2020 62447 Therapeutic Procedure, Each 15 M inutes Completed 08/26/2020 91717 Manual Therapy Each 15 Minutes C ompleted 08/26/2020 96938 Therapeutic Procedure, Each 15 M inutes Completed 08/26/2020 26490 Hot Or Cold Packs Completed 08/24/2020 22462 Physical Therapy Eval - Low Comp lexity Completed Medical Devices Description No Information Available Encounters Type Date Location Provider Dx Diagnosis Office Visit 09/09/2020 11[place] M47.812 Spondylosis w/o myelopathy or radiculopathy, cervical [...] myelopathy or radiculopathy, cervical region ZI Palomino 09/09/2020 M50.320 Other cervical disc degeneration, mid-cervical region, unspecified level ZI Palomino 09/09/2020 M47.817 Spondylosis without myelopathy or radiculopathy, lumbosacral region Ermias Ronna, PA 09/09/2020 M51.37 Other intervertebral disc degene ration, lumbosacral region Ermias Georges Roxanne, PA 09/05/2020 M47.812 Spondylosis without myelopathy or radiculopathy, cervical region Hugo Russo, PT, DPT 09/05/2020 M50.320 Other cervical disc degeneration, mid-cervical region, unspecified level Hugo Russo, PT, DPT 09/05/2020 M47.817 Spondylosis without myelopathy or radiculopathy, lumbosacral region Hugo Russo, PT, DPT 09/05/2020 M51.37 Other intervertebral disc degene ration, lumbosacral region Hugo Russo, PT, DPT 09/01/2020 M47.812 Spondylosis without myelopathy or radiculopathy, cervical region Danamarie Ortolano, DRUG ABUSE RESISTANCE EDUCATION OFFICER 09/01/2020 M50.320 Other cervical disc degeneration, mid-cervical region, unspecified level Danamarie Ortolano, DRUG ABUSE RESISTANCE EDUCATION OFFICER 09/01/2020 M47.817 Spondylosis without myelopathy or radiculopathy, lumbosacral region Danamarie Ortolano, DRUG ABUSE RESISTANCE EDUCATION OFFICER 09/01/2020 M51.37 Other intervertebral disc degene ration, lumbosacral region Danamarie Ortolano, DRUG ABUSE RESISTANCE EDUCATION OFFICER 08/26/2020 M47.812 Spondylosis without myelopathy or radiculopathy, cervical region Hugo Russo, PT, DPT 08/26/2020 M50.320 Other cervical disc degeneration, mid-cervical region, unspecified level Hugo Russo, PT, DPT 08/26/2020 M47.817 Spondylosis without myelopathy or radiculopathy, lumbosacral region Hugo Russo, PT, DPT 08/26/2020 M51.37 Other intervertebral disc degene ration, lumbosacral region Hugo Russo, PT, DPT 08/24/2020 M47.812 Spondylosis without myelopathy or radiculopathy, cervical region Hugo Russo, PT, DPT 08/24/2020 M50.320 Other cervical disc degeneration, mid-cervical region, unspecified level Hugo Russo, PT, DPT 08/24/2020 M47.817 Spondylosis without myelopathy or radiculopathy, lumbosacral region Hugo Russo, PT, DPT 08/24/2020 M51.37 Other intervertebral disc degene ration, lumbosacral region Hugo Russo, PT, DPT 07/29/2020 M47.812 Spondylosis without myelopathy [...] a day as needed for spasm * New Xrays:* MRI Lumbar Spine, Ordered: 09/09/20 * Follow up:* after MRI results with [facility] * M51.37 Other intervertebral disc degeneration, lumbosacral region Functional Status Description No Information Available Mental Status Description No Information Available Referrals Refer to Dr Reason for Referral Status Appt Date Jorge Borges MD authorization for physical t herapy evaluation [phone] Cervical/Lumbar Spine. Patient Coming here. Passed to PT Dept. AC Created [address] [place] [address], [address] [place] [address] [phone] Jorge Borges MD physical therapy authorizati on cervical/lumbar. Passed to physical therapy dept. ac Created [address], [address] [place] [address] [phone]
--- OUTSIDE RECORDS SUMMARY | 2020-12-08 14:18 | CCD ---
Author Author [facility] Organization [facility] ems Address Unknown Phone Unavailable Care Team Providers Care Pediatric Lpn Name Role Phone Gay Schmtiz Unavailable PROBLEMS Type Condition ICD9-CM Code KJM11-DR Code Onset Dates Condition S tatus W/U Status Risk SNOMED Code Notes Problem Hypothyroidism E03.9 Active confirmed 90131 008 Problem Vitamin D deficiency, unspecified E55.9 Active con firmed 58709900 Problem Obesity E66.9 Active confirmed 560007098 Problem Essential hypertension I10 Active confirmed 22102601 Problem Allergic rhinitis J30.9 Active confirmed 61 671805 Problem Lumbago with sciatica, right side M54.41 Active confirmed 197826690056324 Problem Headache, migraine G43.909 Active confirmed 12299457 Problem Situational stress F43.9 Active confirmed 7 7763177 Problem Generalized anxiety disorder F41.1 Active confirme d 92555495 Problem Major depressive disorder F32.9 Active confirmed 646012385 ALLERGIES Allergen (clinical drug ingredient) Drug/Non Drug Allergy do cumented on EMR Reaction Allergy Type Onset Date Status morphine Morphine Sulfate(NDC Code:[address]-20) Rash Drug A llergy Active Rocephin Hives Drug Allergy Active acetaminophen / oxycodone Percocet(NDC Code:[address]-24) Rash Drug Allergy Active cod fish Rash Non Drug Allergy Active pineapple Rash Non Drug Allergy Active Nubain Rash Drug Allergy Active clarithromycin Biaxin Anaphylaxis Drug Allergy Active sumatriptan Imitrex(NDC Code:[address]-01) Hives Drug Allergy Active loratadine Alavert(NDC Code:[address]-69) Rash Drug Allergy Active tramadol Ultram(NDC Code:[address]-61) Rash Drug Allergy Active Levaquin Rash Drug Allergy Active clindamycin Cleocin([facility] Code:[address]-98) Rash Drug Allergy Active shrimp Rash Non Drug Allergy Active Septra Rash Drug Allergy Active xanaplex Hives Non Drug Allergy Active ciprofloxacin Cipro([facility] Code:[address]-56) Rash Drug Allergy Active dark chocolate Rash Non Drug Allergy Acti ve Darvocet-N 50 Rash Drug Allergy Active Vicodin Rash Drug Allergy Active ENCOUNTERS from 1975 to 2020-11-26 Encounter Location Date Provider Diagnosis [address] [address] Nov, Gay Soosairaj IMMUNIZATIONS No Information SOCIAL HISTORY Tobacco Use: Social History Observation Description Date Details (start date - stop date) Never Smoker Sex Assigned At : Social History Observation Description Sex Assigned At Unknown Education: Question Answer Notes Level of Education: Finished High School Audit Question Answer Notes Total Score: 0 Interpretation: Alcohol Education Language: Question Answer Notes Languages spoken: Both Occitan and Yemeni Worship: Question Answer Notes Worship 08 Scientologist Drug and Alcohol Question Answer Notes Total [...] tab Orally Once a day Active Ergocalciferol 71715 UNIT 1 capsule Orally every 2 weeks [...] No Information FUNCTIONAL STATUS No Information ASSESSMENTS No Information PLAN OF TREATMENT Medication Medication Name Sig Start Date Stop Date Losartan Potassium 25 MG 1 tablet Orally bid for 90 day(s) Ergocalciferol 12858 UNIT 1 capsule Orally every 2 weeks [...] Provider Name:Jojo Hernandez, 2020-12-20 6 10:45:00 AM, [address], [place], [address], Provider Name:Gay Schmitz, 03-08 03:00:00 PM, [address] [place], [address], Insurance Providers Payer Name Payer Address Payer Phone Insured Name Patient Relati onship to Insured Coverage Start Date Coverage End Date [facility] [address] [facility] [phone] SHEA STEVENSON
--- OUTSIDE RECORDS SUMMARY | 2020-12-08 14:18 | CCD | Continuity of Care Document ---
Author Author Molly DOHERTY PA Organization Unknown Address [address] [place] [address] Phone [phone] Care Team Providers Care Extrusion Press Adjuster Name Role Phone Africa Perez PA-C AUTM Unavailable Gay Schmitz AUTM [phone] Problems Description No Information Available Social History [...] Date Duloxetine HCL 20mg Caps DR Armando Take One Capsule By Mouth Every Morning For 14 Days, Then Increase To Take Two Capsules By Mouth Every Day. DO Not Start Until Off Lexapro. 60caps M47.817 Fernandez Smith MD 09/09/2020 Methocarbamol 500mg Tablets 1-2 by mouth three [...] Albuterol Sulfate HFA 108(90Base) mcg/Act Aerosol Gay SchmitzKAUSHIK History Medications Gabapentin 100mg Capsules 1 cap po tid x1 week, then 2 caps po tid x1 week, then 3 caps po tid 270caps M47.812 Fernandez Smith MD 07/29/2020 - 09/09/2020 Immunizations Description No Information Available Vital Signs Date Vital Result Comment 10/26/2020 3:16pm Body Temperature 96.8 F 07/29/2020 9:38am Body Temperature 97.1 F Height 60 inches 5'0" Weight 164.12 lb BMI (Body Mass Index) 32.0 kg/m2 Results Description No Information Available Procedures Date Code Description Status 09/05/2020 72533 Manual Therapy Each 15 Minutes C ompleted 09/05/2020 11346 Therapeutic Procedure, Each 15 M inutes Completed 09/05/2020 05296 Hot Or Cold Packs Completed 09/01/2020 86514 Manual Therapy Each 15 Minutes C ompleted 09/01/2020 34504 Therapeutic Procedure, Each 15 M inutes Completed 08/26/2020 26200 Manual Therapy Each 15 Minutes C ompleted 08/26/2020 02521 Therapeutic Procedure, Each 15 M inutes Completed 08/26/2020 32185 Hot Or Cold Packs Completed 08/24/2020 72221 Physical Therapy Eval - Low Comp lexity Completed Medical Devices Description No Information Available Encounters Type Date Location Provider Dx Diagnosis Office Visit 10/26/2020 3:00p [facility] M47.812 Spondylosis w/o myelopathy or radiculopathy, cervical region M50.320 Other cerv disc degeneration , mid-cervical rgn, unsp level M54.5 Low back pain Office Visit 09/09/2020 11:00a [facility] M47.812 Spondylosis w/o myelopathy or radiculopathy, cervical region M50.320 Other cerv disc degeneration , mid-cervical rgn, unsp level M47.817 Spondyls w/o myelopathy or r adiculopathy, lumbosacr region M51.37 Other intervertebral disc de generation, lumbosacral region Office Visit 07/29/2020 9:30a [place] IZ Palomino M47.812 Spondylosis w/o myelopathy or radiculopathy, cervical region M50.320 Other cerv disc degeneration , mid-cervical rgn, unsp level M47.817 Spondyls w/o myelopathy or r adiculopathy, lumbosacr region M51.37 Other intervertebral disc de generation, lumbosacral region Assessments Date Code Description Provider 10/26/2020 M47.812 Spondylosis without myelopathy or radiculopathy, cervical region [facility] Pal[facility]ino 10/26/2020 M50.320 Other cervical disc degeneration, mid-cervical region, unspecified level ZI [facility] 10/26/2020 M54.5 Low back pain ZI [place] 09/09/2020 M47.812 Spondylosis without myelopathy or radiculopathy, cervical region ZI [place] 09/09/2020 M50.320 Other cervical disc degeneration, mid-cervical region, unspecified level ZI [facility] 09/09/2020 M47.817 Spondylosis without myelopathy or radiculopathy, lumbosacral region ZI [place] 09/09/2020 M51.37 Other intervertebral disc degene ration, lumbosacral region ZI [facility] 09/05/2020 M47.812 Spondylosis without myelopathy or radiculopathy, [...] myelopathy or radiculopathy, cervical region Danamarie Ortolano, SHIPPING AGENT 09/01/2020 M50.320 Other cervical disc degeneration, mid-cervical region, unspecified level Danamarie Ortolano, SHIPPING AGENT 09/01/2020 M47.817 Spondylosis without myelopathy or radiculopathy, lumbosacral region Danamarie Ortolano, SHIPPING AGENT 09/01/2020 M51.37 Other intervertebral disc degene ration, lumbosacral region Danamarie Ortolano, SHIPPING AGENT 08/26/2020 M47.812 Spondylosis without myelopathy or radiculopathy, cervical region Hugo Knox, PT, DPT 08/26/2020 M50.320 Other cervical disc degeneration, mid-cervical region, unspecified level Hugo Knox, PT, DPT 08/26/2020 M47.817 Spondylosis without myelopathy or radiculopathy, lumbosacral region Hugo Knox, PT, DPT 08/26/2020 M51.37 Other intervertebral disc degene ration, lumbosacral region Hugo Knox, PT, DPT 08/24/2020 M47.812 Spondylosis without [...] or radiculopathy, cervical region Ermias Doherty PA 07/29/2020 M50.320 Other cervical disc degeneration, mid-cervical region, unspecified level Ermias Doherty PA 07/29/2020 M47.817 Spondylosis without myelopathy or radiculopathy, lumbosacral region Ermias Doherty ZI 07/29/2020 M51.37 Other intervertebral disc degene ration, lumbosacral region [facility]I [facility] Plan of Treatment 10/26/2020 - [facility]om[facility]* M47.812 Spondylosis without myelopathy or radiculopathy, cervical region* Follow up:* in 3 months with [facility] * M50.320 Other cervical disc degeneration, mid-cervical region, unspecified level * M54.5 Low back pain Functional Status Description No Information Available Mental Status Description No Information Available Referrals Refer to Dr Reason for Referral Status Appt Date Jorge Borges MD authorization for physical t herapy evaluation [id number] Cervical/Lumbar Spine. Patient Coming here. Passed to PT Dept. AC Created [address] [place] [address] [phone] Jorge Borges MD physical therapy authorizati on cervical/lumbar. Passed to physical therapy dept. ac Created [address] [place] [address] [phone]
--- OUTSIDE RECORDS SUMMARY | 2020-12-08 14:18 | CCD ---
Author Author [facility] Organization [facility] ems Address Unknown Phone Unavailable Care Team Providers Care Advertising Photographer Name Role Phone Gay Schmitz Unavailable PROBLEMS Type Condition ICD9-CM Code [id number] Code Onset Dates Condition S tatus W/U Status Risk SNOMED Code Notes Problem Hypothyroidism E03.9 Active confirmed 12807 008 Problem Vitamin D deficiency, unspecified E55.9 Active con firmed 56632205 Problem Obesity E66.9 Active confirmed 325952808 Problem Essential hypertension I10 Active confirmed 18721760 Problem Allergic rhinitis J30.9 Active confirmed 61 673396 Problem Lumbago with sciatica, right side M54.41 Active confirmed 210626840080732 Problem Headache, migraine G43.909 Active confirmed 98057466 Problem Situational stress F43.9 Active confirmed 7 5990764 Problem Generalized anxiety disorder F41.1 Active confirme d 20789214 Problem Major depressive disorder F32.9 Active confirmed 901462483 ALLERGIES Allergen (clinical drug ingredient) Drug/Non Drug Allergy do cumented on EMR Reaction Allergy Type Onset Date Status morphine Morphine Sulfate(NDC Code:[address]-45) Rash Drug A llergy Active Rocephin Hives Drug Allergy Active acetaminophen / oxycodone Percocet(NDC Code:[address]-86) Rash Drug Allergy Active cod fish Rash Non Drug Allergy Active pineapple Rash Non Drug Allergy Active Nubain Rash Drug Allergy Active clarithromycin Biaxin Anaphylaxis Drug Allergy Active sumatriptan Imitrex(NDC Code:[address]-09) Hives Drug Allergy Active loratadine Alavert(NDC Code:[address]-23) Rash Drug Allergy Active tramadol Ultram(NDC Code:[address]-56) Rash Drug Allergy Active Levaquin Rash Drug Allergy Active clindamycin Cleocin([facility] Code:[address]-29) Rash Drug Allergy Active shrimp Rash Non Drug Allergy Active Septra Rash Drug Allergy Active xanaplex Hives Non Drug Allergy Active ciprofloxacin Cipro([facility] Code:[address]-83) Rash Drug Allergy Active dark chocolate Rash Non Drug Allergy Acti ve Darvocet-N 50 Rash Drug Allergy Active Vicodin Rash Drug Allergy Active ENCOUNTERS from 1975 to 2020-11-26 Encounter Location Date Provider Diagnosis [address] [address] Nov, Gay Soosairaj IMMUNIZATIONS No Information SOCIAL HISTORY Tobacco Use: Social History Observation Description Date Details (start date - stop date) Never Smoker Sex Assigned At : Social History Observation Description Sex Assigned At Unknown Education: Question Answer Notes Level of Education: Finished High School Audit Question Answer Notes Total Score: 0 Interpretation: Alcohol Education Language: Question Answer Notes Languages spoken: Both Azeri and Burmese Confucianism: Question Answer Notes Confucianism 08 Adventism Drug and Alcohol Question Answer Notes Total [...] tab Orally Once a day Active Ergocalciferol 44412 UNIT 1 capsule Orally every 2 weeks for 30 day(s ) Active Aspir-81 81 MG 1 tablet Orally Once a day for 90 day(s) Active Amitriptyline HCl 25 MG 1 tablet at bedtime Orally Once a day fo r 90 day(s) Nov, Active PROCEDURES No Information RESULTS No Results REASON FOR VISIT depression MEDICAL (GENERAL) HISTORY Type Description Date Medical [...] tablet Orally bid for 90 day(s) Ergocalciferol 51232 UNIT 1 capsule Orally every 2 weeks [...] Provider Name:Jojo Hernandez, 2020-12-20 6 10:45:00 AM, [address], [place], [address], Provider Name:Gay Schmitz, 03-08 03:00:00 PM, [address] [place], [address], Insurance Providers Payer Name Payer Address Payer Phone Insured Name Patient Relati onship to Insured Coverage Start Date Coverage End Date [facility] COMMUNITY PLAN [facility] [address] [facility] [phone] SHEA STEVENSON
--- OUTSIDE RECORDS SUMMARY | 2020-12-08 14:18 | CCD | Continuity of Care Document ---
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 Medications Gabapentin 100mg Capsules 1 cap [...] Available Procedures Date Code Description Status 09/05/2020 11367 Manual Therapy Each 15 Minutes C ompleted 09/05/2020 92018 Therapeutic Procedure, Each 15 M inutes Completed 09/05/2020 93110 Hot Or Cold Packs Completed 09/01/2020 26523 Manual Therapy Each 15 Minutes C ompleted 09/01/2020 59911 Therapeutic Procedure, Each 15 M inutes Completed 08/26/2020 35092 Manual Therapy Each 15 Minutes C ompleted 08/26/2020 12107 Therapeutic Procedure, Each 15 M inutes Completed 08/26/2020 50910 Hot Or Cold Packs Completed 08/24/2020 65458 Physical Therapy Eval - Low Comp lexity [...] generation, lumbosacral region Office Visit 07/29/2020 9:30a [place] ZI Palomino M47.812 Spondylosis w/o myelopathy or radiculopathy, [...] Spondylosis without myelopathy or radiculopathy, cervical region Latasha Rao, AQUATIC ECOLOGIST 09/01/2020 M50.320 Other cervical disc degeneration, mid-cervical region, unspecified level Danamarie Ortolano, AQUATIC ECOLOGIST 09/01/2020 M47.817 Spondylosis without myelopathy or radiculopathy, lumbosacral region Danamarie Ortolano, AQUATIC ECOLOGIST 09/01/2020 M51.37 Other intervertebral disc degene ration, lumbosacral region Danamarie Ortolano, AQUATIC ECOLOGIST 08/26/2020 M47.812 Spondylosis without myelopathy or radiculopathy, [...] region* Follow up:* in 3 months with [facility] * M50.320 Other cervical disc degeneration, mid-cervical region, unspecified level * M54.5 Low back pain Functional Status Description No Information Available Mental Status Description No Information Available Referrals Refer to Dr Reason for Referral Status Appt Date Jorge Borges MD authorization for physical t herapy evaluation [id number] Cervical/Lumbar Spine. Patient Coming here. Passed to PT Dept. AC Created [address] [place] [address] [phone] Jorge Borges MD physical therapy authorizati on cervical/lumbar. Passed to physical therapy dept. ac Created [address] [place] [address] [phone]
--- OUTSIDE RECORDS SUMMARY | 2020-12-08 14:18 | CCD ---
Author Author [facility] Organization [facility] ems Address Unknown Phone Unavailable Care Team Providers Care Rn Or Lpn Name Role Phone Gay Schmtiz Unavailable PROBLEMS Type Condition ICD9-CM Code [id number] Code Onset Dates Condition S tatus SNOMED Code Notes Problem Hypothyroidism E03.9 Active 49284008 Problem Vitamin D deficiency, unspecified E55.9 Active 52984575 Problem Obesity E66.9 Active 399170699 Problem Essential hypertension I10 Active 99666680 Problem Allergic rhinitis J30.9 Active 88049776 Problem Lumbago with sciatica, right side M54.41 Active 477287003709017 Problem Headache, migraine G43.909 Active 07837750 Problem Situational stress F43.9 Active 75118846 Problem Generalized anxiety disorder F41.1 Active 218 04032 Problem Major depressive disorder F32.9 Active 917061 000 ALLERGIES Allergen (clinical drug ingredient) Drug/Non Drug Allergy do cumented on EMR Reaction Allergy Type Onset Date Status morphine Morphine Sulfate(NDC Code:[address]-93) Rash Drug A llergy Active Rocephin Hives Drug Allergy Active acetaminophen / oxycodone Percocet(NDC Code:[address]-86) Rash Drug Allergy Active cod fish Rash Non Drug Allergy Active pineapple Rash Non Drug Allergy Active Nubain Rash Drug Allergy Active clarithromycin Biaxin Anaphylaxis Drug Allergy Active sumatriptan Imitrex(NDC Code:[address]-63) Hives Drug Allergy Active loratadine Alavert(NDC Code:[address]-73) Rash Drug Allergy Active tramadol Ultram(NDC Code:[address]-42) Rash Drug Allergy Active Levaquin Rash Drug Allergy Active clindamycin Cleocin([facility] Code:[address]-65) Rash Drug Allergy Active shrimp Rash Non Drug Allergy Active Septra Rash Drug Allergy Active xanaplex Hives Non Drug Allergy Active ciprofloxacin Cipro([facility] Code:[address]-09) Rash Drug Allergy Active dark chocolate Rash Non Drug Allergy Acti ve Darvocet-N 50 Rash Drug Allergy Active Vicodin Rash Drug Allergy Active ENCOUNTERS from 1975 to 2020-09-14 Encounter Location Date Provider Diagnosis [address] [address] Aug, Gay Fernandoosairaliam Hypothyroidism E03.9 ; Headache, migrain e G43.909 ; Vitamin D deficiency, unspecified E55.9 ; Generalized anxiety disorder F41.1 ; Major depressive disorder F32.9 ; Breast cancer screening Z12.39 and Cervical cancer screening Z12.4 IMMUNIZATIONS No Information SOCIAL HISTORY Tobacco Use: Social History Observation Description Date Details (start date - stop date) Never Smoker Sex Assigned At : Social History Observation Description Sex Assigned At Unknown Education: Question Answer Notes Level of Education: Finished High School Audit Question Answer Notes Interpretation: Alcohol Education Total Score: 0 Language: Question Answer Notes Languages spoken: Both Kyrgyz and Peruvian Holiness: Question Answer Notes Holiness 08 Denominational Drug and Alcohol Question Answer Notes Interpretation: No problems reported Total Score: 0 Alcohol Screening: Question Answer Notes Did you have a drink containing alcohol in the past year? No Points 0 Interpretation Negative Tobacco Use: Question Answer Notes Are you a: never smoker REASON FOR REFERRAL No Information VITAL SIGNS Weight 169 lbs Aug, Height 60 in Aug, BMI 33.00 kg/m2 Aug, Heart Rate 103 /min Aug, Respiratory Rate 16 /min Aug, Temperature 97.4 degrees Fahrenheit Aug, Oximetry 98% Aug, Blood pressure systolic 114 mm Hg Aug, Blood pressure diastolic 60 mm Hg Aug, MEDICATIONS Medication SIG (Take, Route, Frequency, Duration) Notes Start Da te End Date Status Levothyroxine Sodium 75 MCG 1 tablet on an empty stoma ch in the morning Orally Once a day for 30 Active Amitriptyline HCl 25 MG 1 tablet at bedtime Orally Once a day fo day(s) Nov, Active Flonase Allergy Relief 50 MCG/ACT 1 spray in each nost ril Nasally Once a day for 14 day(s) Oct, Active EpiPen 2-Bryce 0.3 MG/0.3ML as directed Injection Daily as needed for 30 Days Nov, Active Albuterol Sulfate HFA 108 (90 Base) MCG/ACT 1 puff as needed Inhalation every 6 hrs for 30 Days Oct, Active Aspir-81 81 MG 1 tablet Orally Once a day for 90 day(s) Active Levothyroxine Sodium 75 MCG 1 tablet on an empty stoma ch in the morning Orally Once a day for 30 day(s) Active Ergocalciferol 35740 UNIT 1 capsule Orally every 2 weeks for 30 day(s ) Active SM Aspirin Adult Low Strength 81 MG TAKE ONE TABLET BY MOUTH ONCE DAILY for 30 Active Amitriptyline HCl 25 mg 1 tab Orally Once a day Active Losartan Potassium 50 MG 1 tablet Orally Once a day for 30 Active PROCEDURES No Information RESULTS REASON FOR VISIT No Information MEDICAL (GENERAL) HISTORY Type Description Date Medical History Hypothyroidism Medical History Migraine headache, common type- Medical History situational stress Medical History 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: Sinus rhyth m/sinus tachycardia Medical History kidney stones Medical History anxiety Medical History hypertension Medical History Central cervical disc bulgin g and annular fissure at C5-6 c mild spinal stenosis -06/2020 MRI cervical spine- [facility] Surgical History c section 2004 Surgical History [...] Notes Treatment Notes Treatm ent Clinical Notes Aug, Hypothyroidism (ICD-10 - E03.9) continue Levo 75 Mcg 12/2019 3.07, 1.28 08/2019 2.02, 1.07 02/2019 2.02, 0.94 10/2018 1.2, 0.9 18 Aug, 2020 Headache, migraine (ICD-10 - G43.909) stable on amitriptyline 25mg Aug, Vitamin D deficiency, unspecified (ICD-10 - E55. 9) Marimar 50K q15 days 12/2019 24, 8.8 02/2019 42.7, 8.6, 69 10/2018 18.2, 8.8 18 Aug, 2020 Generalized anxiety disorder (ICD-10 - F41.1) stable on amitriptyline 18 Aug, 2020 Major depressive disorder (ICD-10 - F32.9) stable on behavioral/lifestyle changes Aug, Breast cancer screening (ICD-10 - Z12.39) 04/2019 Bi-rads 1 Aug, Cervical cancer screening (ICD-10 - Z12.4) s/p hysterectomy PLAN OF TREATMENT Medication Medication Name Sig Start Date Stop Date Amitriptyline HCl 25 mg 1 tab Orally Once a day Ergocalciferol 51108 UNIT 1 capsule Orally every 2 weeks for 30 day(s) Levothyroxine Sodium 75 MCG 1 tablet on an empty stoma ch in the morning Orally Once a day for 30 day(s) Losartan Potassium 50 MG 1 tablet Orally Once a day for 30 Treatment Notes Assessment Notes Clinical Notes Hypothyroidism continue Levo 75 Mcg 12/2019 3.07, 1.28110/2018 2.02, 1.075 2.02, 0.941 1.2, 0.9 Headache, migraine stable on amitriptyl ine 25mg Vitamin D deficiency, unspecified Marimar 50K q15 days12/2019 24, 8. 42.7, 8.6, 6910/2018 18.2, 8.8 Generalized anxiety disorder stable on a mitriptyline Major depressive disorder stable on beha vioral/lifestyle changes Breast cancer screening 04/2019 Bi-rads 1 Cervical cancer screening s/p hysterecto my Next Appt Details 6 Months Reason: Provider Name:Jojo Hernandez, 2020-12-20 6 10:45:00 AM, [address], [place], [address], Provider Name:Gay Schmitz, 03-08 03:00:00 PM, [address] [place], [address], Insurance Providers Payer Name Payer Address Payer Phone Insured Name Patient Relati onship to Insured Coverage Start Date Coverage End Date [facility] [address] [id number] SHEA STEVENSON self
--- OUTSIDE RECORDS SUMMARY | 2020-12-08 14:19 | CCD ---
Author Author [facility] Organization [facility] Address Unknown Phone Unavailable Care Team Providers Care Interstate Planner Name Role Phone BESSY, M ERMIAS PA Unavailable Unavailable BESSY, M ERMIAS PA Unavailable Unavailable BESSY, M ERMIAS PA Unavailable Unavailable BESSY, M ERMIAS PA Unavailable Unavailable BESSY, M ERMIAS PA Unavailable Unavailable BESSY, M ERMIAS PA Unavailable Unavailable BESSY, M ERMIAS PA Unavailable Unavailable BESSY, M ERMIAS PA Unavailable Unavailable BESSY, M ERMIAS PA Unavailable Unavailable BESSY, M ERMIAS PA Unavailable Unavailable BESSY, M ERMIAS PA Unavailable Unavailable BESSY, M ERMIAS PA Unavailable Unavailable BESSY, M ERMIAS PA Unavailable Unavailable BESSY, M ERMIAS PA Unavailable Unavailable BESSY, M ERMIAS PA Unavailable Unavailable BESSY, M ERMIAS PA Unavailable Unavailable BESSY, M ERMIAS PA Unavailable Unavailable BESSY, M ERMIAS PA Unavailable Unavailable BESSY, M ERMIAS PA Unavailable Unavailable BESSY, M ERMIAS PA Unavailable Unavailable BESSY, M ERMIAS PA Unavailable Unavailable BESSY, M ERMIAS PA Unavailable Unavailable BESSY, M ERMIAS PA Unavailable Unavailable BESSY, M ERMIAS PA Unavailable Unavailable Re-disclosure Warning The records that you are about to access may contain information from federally-assisted alcohol or drug abuse programs. If such information is present, then the following federally mandated warning applies: This information has been disclosed to you from records protected by federal confidentiality rules (42 CFR part 2). The federal rules prohibit you from making any further disclosure of this information unless further disclosure is expressly permitted by the written consent of the person to whom it pertains or as otherwise permitted by 42 CFR part 2. A general authorization for the release of medical or other information is NOT sufficient for this purpose. The Federal rules restrict any use of the information to criminally investigate or prosecute any alcohol or drug abuse patient.The records that you are about to access may contain highly sensitive health information, the redisclosure of which is protected by Article 27-F of the [facility] Public Health law. If you continue you may have access to information: Regarding HIV / AIDS; Provided by facilities licensed or operated by the [facility] Office of Mental Health; or Provided by the [facility] Office for People With Developmental Disabilities. If such information is present, then the following [facility] mandated warning applies: This information has been disclosed to you from confidential records which are protected by state law. State law prohibits you from making any further disclosure of this information without the specific written consent of the person to whom it pertains, or as otherwise permitted by law. Any unauthorized further disclosure in violation of state law may result in a fine or intermediate sentence or both. A general authorization for the release of medical or other information is NOT sufficient authorization for further disc losure. Allergies and Adverse Reactions Type Description Substance Reaction Status Data Source(s ) Drug allergy Cipro Ciprofloxacin Rash Active eCW1 ([facility]) Drug allergy Cleocin Clindamycin Rash Active eCW1 ([facility]) Drug allergy Levaquin Drug allergy Rash Active eCW1 ([facility]) Drug allergy Alavert Loratadine Rash Active eCW1 ([facility]) Drug allergy Imitrex Sumatriptan Hives Active eCW1 ([facility]) Drug allergy Morphine Sulfate Morphine Rash Active eCW1 ( [facility]) Drug allergy Ultram Tramadol Rash Active eCW1 ([facility]) Drug allergy Percocet acetaminophen / oxycodone Rash Active eCW1 ([facility]) Nubain Nubain Nubain Rash Active eCW1 ([facility]) Rocephin Rocephin Rocephin Hives Active eCW1 ([facility]) Septra Septra Septra Rash Active eCW1 ([facility]) dark chocolate dark chocolate dark chocolate Rash Active eC W1 ([facility]) Vicodin Vicodin Vicodin Rash Active eCW1 ([facility]) cod fish cod fish cod fish Rash Active eCW1 ([facility]) Biaxin Biaxin Clarithromycin 250 MG Oral Tablet [Biaxin] Anap hylaxis Active eCW1 ([facility]) xanaplex xanaplex xanaplex Hives Active eCW1 ([facility]) pineapple pineapple pineapple Rash Active eCW1 ([facility]) shrimp shrimp shrimp Rash Active eCW1 ([facility]) Darvocet-N 50 Darvocet-N 50 Darvocet-N 50 Rash Active eCW1 ([facility]) Nubain Nubain Nubain Rash Active eCW1 ([facility]) Rocephin Rocephin Rocephin Hives Active eCW1 ([facility]) Septra Septra Septra Rash Active eCW1 ([facility]) dark chocolate dark chocolate dark chocolate Rash Active eC W1 ([facility]) Vicodin Vicodin Vicodin Rash Active eCW1 ([facility]) cod fish cod fish cod fish Rash Active eCW1 ([facility]) Biaxin Biaxin Clarithromycin 250 MG Oral Tablet [Biaxin] Anap hylaxis Active eCW1 ([facility]) xanaplex xanaplex xanaplex Hives Active eCW1 ([facility]) pineapple pineapple pineapple Rash Active eCW1 ([facility]) shrimp shrimp shrimp Rash Active eCW1 ([facility]) Darvocet-N 50 Darvocet-N 50 Darvocet-N 50 Rash Active eCW1 ([facility]) Nubain Nubain Nubain Rash Active eCW1 ([facility]) Rocephin Rocephin Rocephin Hives Active eCW1 ([facility]) Septra Septra Septra Rash Active eCW1 ([facility]) dark chocolate dark chocolate dark chocolate Rash Active eC W1 ([facility]) Vicodin Vicodin Vicodin Rash Active eCW1 ([facility]) cod fish cod fish cod fish Rash Active eCW1 ([facility]) Biaxin Biaxin Clarithromycin 250 MG Oral Tablet [Biaxin] Anap hylaxis Active eCW1 ([facility]) xanaplex xanaplex xanaplex Hives Active eCW1 ([facility]) pineapple pineapple pineapple Rash Active eCW1 ([facility]) shrimp shrimp shrimp Rash Active eCW1 ([facility]) Darvocet-N 50 Darvocet-N 50 Darvocet-N 50 Rash Active eCW1 ([facility]) Levaquin Levaquin Levofloxacin 750 MG Oral Tablet [Levaquin] Rash Active eCW1 ([facility]) James Gonzalezbain Rash Active eCW1 ([facility]) Rocephin Rocephin Rocephin Hives Active eCW1 ([facility]) Sept Septra Rash Active eCW1 ([facility]) dark chocolate dark chocolate dark chocolate Rash Active eC W1 ([facility]) Vicodin Vicodin Vicodin Rash Active eCW1 ([facility]) cod fish cod fish cod fish Rash Active eCW1 ([facility]) Biaxin Biaxin Clarithromycin 250 MG Oral Tablet [Biaxin] Anap hylaxis Active eCW1 ([facility]) xanaplex xanaplex xanaplex Hives Active eCW1 ([facility]) pineapple pineapple pineapple Rash Active eCW1 ([facility]) shrimp shrimp shrimp Rash Active eCW1 ([facility]) Darvocet-N 50 Darvocet-N 50 Darvocet-N 50 Rash Active eCW1 ([facility]) Nubain Nubain Nubain Rash Active eCW1 ([facility]) Rocephin Rocephin Rocephin Hives Active eCW1 ([facility]) Septra Rash Active eCW1 ([facility]) dark chocolate dark chocolate dark chocolate Rash Active eC W1 ([facility]) Vicodin Vicodin Vicodin Rash Active eCW1 ([facility]) cod fish cod fish cod fish Rash Active eCW1 ([facility]) Biaxin Biaxin Clarithromycin 250 MG Oral Tablet [Biaxin] Anap hylaxis Active eCW1 ([facility]) xanaplex xanaplex xanaplex Hives Active eCW1 ([facility]) pineapple pineapple pineapple Rash Active eCW1 ([facility]) shrimp shrimp shrimp Rash Active eCW1 ([facility]) Darvocet-N 50 Darvocet-N 50 Darvocet-N 50 Rash Active eCW1 ([facility]) Nubain Nubain Nubain Rash Active eCW1 ([facility]) Rocephin Rocephin Rocephin Hives Active eCW1 ([facility]) Septra Rash Active eCW1 ([facility]) dark chocolate dark chocolate dark chocolate Rash Active eC W1 ([facility]) Vicodin Vicodin Vicodin Rash Active eCW1 ([facility]) cod fish cod fish cod fish Rash Active eCW1 ([facility]) Biaxin Biaxin Clarithromycin 250 MG Oral Tablet [Biaxin] Anap hylaxis Active eCW1 ([facility]) xanaplex xanaplex xanaplex Hives Active eCW1 ([facility]) pineapple pineapple pineapple Rash Active eCW1 ([facility]) shrimp shrimp shrimp Rash Active eCW1 ([facility]) Darvocet-N 50 Darvocet-N 50 Darvocet-N 50 Rash Active eCW1 ([facility]) Nubain Nubain Nubain Rash Active eCW1 ([facility]) Rocephin Rocephin Rocephin Hives Active eCW1 ([facility]) Septra Septra Septra Rash Active eCW1 ([facility]) dark chocolate dark chocolate dark chocolate Rash Active eC W1 ([facility]) Vicodin Vicodin Vicodin Rash Active eCW1 ([facility]) cod fish cod fish cod fish Rash Active eCW1 ([facility]) Biaxin Biaxin Clarithromycin 250 MG Oral Tablet [Biaxin] Anap hylaxis Active eCW1 ([facility]) xanaplex xanaplex xanaplex Hives Active eCW1 ([facility]) pineapple pineapple pineapple Rash Active eCW1 ([facility]) shrimp shrimp shrimp Rash Active eCW1 ([facility]) Darvocet-N 50 Darvocet-N 50 Darvocet-N 50 Rash Active eCW1 ([facility]) Encounters Encounter Providers Location Date Indications Data Source(s ) Unknown [address] [facility] [place] [address] 11/24/2020 12:00:00 AM EST eCW1 (formerly [facility]) Unknown [address] [facility] [place] [address] 11/24/2020 12:00:00 AM EST eCW1 ([facility]) Unknown [address] [facility] [place] [address] 11/24/2020 12:00:00 AM EST eCW1 (formerly [facility]) Outpatient Attender: ERMIAS PINON Physical Therapy 03/2021 02:00:00 PM EST MEDENT ([facility]) Outpatient Attender: ERMIAS PINON Physical Therapy 08/22 10:00:00 AM EST MEDENT ([facility]) Outpatient [address] [facility] [place] [address] 09/07/2020 12:00:00 AM EST eCW1 ([facility]) Unknown [address] [facility] [place] [address] 09/04/2020 12:00:00 AM EST eCW1 ([facility]) OFFICE OUTPATIENT NEW 30 MINUTES Attender: ERMIAS PINON Phys ical Therapy 07/29/2020 09:30:00 AM EDT MEDENT ([facility]) Unknown [address] [facility] [place] [address] 07/22/2020 12:00:00 AM EDT eCW1 ([facility]) [facility] [address] [facility] [place] [address] 07/15/2020 12:00:00 AM EDT eCW1 ([facility]) Unknown [address] [facility] [place] [address] 07/12/2020 12:00:00 AM EDT eCW1 ([facility]) Unknown [address] [facility] [place] [address] 07/12/2020 12:00:00 AM EDT eCW1 ([facility]) Unknown [address] [facility] [place] [address] 07/12/2020 12:00:00 AM EDT eCW1 ([facility]) Outpatient [address] [facility] [place] [address] 05/12/2020 12:00:00 AM EDT eCW1 ([facility]) Unknown [address] [facility] [place] [address] 05/11/2020 12:00:00 AM EDT eCW1 ([facility]) (WC PO) [facility] Op [address] [place] [address] 05/06/2020 12:00:00 AM EDT eCW1 ([facility] Unknown [address] [facility] [place] [address] 04/07/2020 12:00:00 AM EDT [facility] [address] [facility] [place] [address] 04/06/2020 12:00:00 AM EDT eCW1 [facility] [place] [address] [facility] [place] [address] 04/06/2020 12:00:00 AM EDT [facility]CW[facility] Unknown [address] [facility] [place] [address] 03/31/2020 12:00:00 AM EDT eCW1 [facility]) Unknown [address] [facility] [place] [address] 03/31/2020 12:00:00 AM EDT eCW1 ([facility]) Unknown [address] [facility] [place] [address] 03/30/2020 12:00:00 AM EDT eCW1 ([facility]) [facility] [address] [place] [address] 03/28/2020 12:00:00 AM EDT eCW1 ([facility]) [facility] [address] [place] [address] 03/23/2020 12:00:00 AM EDT eCW1 ([facility]) Outpatient [address] [facility] [place] [address] 03/15/2020 12:00:00 AM EDT eCW1 ([facility]) Outpatient [address] [facility] [place] [address] 03/07/2020 12:00:00 AM EDT eCW1 [facility]) [facility] [address] [place] [address] 03/04/2020 12:00:00 AM EDT eCW1 ([facility]) [facility] [address] [place] [address] 03/03/2020 12:00:00 AM EDT eCW1 ([facility]) [facility] [address] [facility] [place] [address] 02/29/2020 12:00:00 AM EDT eCW1 [facility]) [facility] [address] [facility] [place] [address] 02/28/2020 12:00:00 AM EDT eCW1 ([facility]) [facility] [address] [facility] [place] [address] 02/19/2020 12:00:00 AM EDT eCW1 ([facility]) [facility] [address] [facility] [place] [address] 02/17/2020 12:00:00 AM EDT eCW1 ([facility]) Outpatient 02/05/2020 05:13:00 AM EDT [facility] [address] [place] [address] 01/26/2020 12:00:00 AM EDT eCW1 ([facility]) [facility] [address] [facility] [place] [address] 01/21/2020 12:00:00 AM EDT eCW1 [facility] [address] [facility] [place] [address] 01/20/2020 12:00:00 AM EDT eCW1 ([facility]) [facility] Urology [address] [facility] [place] [address] 01/13/2020 12:00:00 AM EDT eCW1 ([facility]) [facility] [address] [facility] [place] [address] 01/07/2020 12:00:00 AM EDT [facility] [address] [facility] [place] [address] 01/07/2020 12:00:00 AM EDT eCW1 [facility]) [facility] [address] [place] [address] 01/04/2020 12:00:00 AM EDT eCW1 ([facility]) [facility] [address] [place] [address], [place] [address] 01/04/2020 12:00:00 AM EDT eCW1 [facility]) [facility] [address] [place] [address], [place] [address] 12/28/2019 12:00:00 AM EDT eCW1 ([facility]) [facility] [address] [place] [address] [place] [address] 12/23/2019 12:00:00 AM EST eCW1 ([facility]) [facility] [address] [place] [address], [place] [address] 12/22/2019 12:00:00 AM EST eCW1 ([facility]) [facility] [address] [place] [address], [place] [address] 12/18/2019 12:00:00 AM EST eCW1 [facility]) [facility] [address] [place] [address] 12/14/2019 12:00:00 AM EST eCW1 ([facility]) [address] [address] 12/08/2019 12:00:00 AM EST eCW1 ([facility] [address] [address] 11/26/2019 12:00:00 AM EST eCW1 ([facility] [address] [address] 11/20/2019 12:00:00 AM EST eCW1 ([facility]) [facility] [address] [place] [address], [place] [address] 11/13/2019 12:00:00 AM EST eCW1 ([facility]) [facility] [address] [place] [address] 11/06/2019 12:00:00 AM EST eCW1 ([facility]) [facility] [address] [place] [address], [place] [address] 11/06/2019 12:00:00 AM EST eCW1 (formerly [facility]) [facility] [address] [place] [address], [place] [address] 11/04/2019 12:00:00 AM EST eCW1 ([facility]) [address] [address] 11/04/2019 12:00:00 AM EST eCW1 ([facility]) Outpatient 10/30/2019 12:46:00 PM EST [facility] [address] [address] 10/23/2019 12:00:00 AM EST eCW1 ([facility]) [address] [address] 10/22/2019 12:00:00 AM EST eCW1 ([facility]) [address] [address] 10/22/2019 12:00:00 AM EST eCW1 ([facility]) [facility] [address] [place] [address] 10/22/2019 12:00:00 AM EST eCW1 ([facility]) [facility] Urology [address] [place] [address], [place] [address] 10/13/2019 12:00:00 AM EST eCW1 (formerly [facility]) Medications Medication Brand Name Start Date Product Form Dose Route Admi nistrative Instructions Pharmacy Instructions Status Indications Reaction Description Data Source(s) 25 mg 11/25/2020 12:00:00 AM EST tablet 60 TAKE ONE TABLET BY MOUTH TWICE A DAY TAKE ONE TABLET BY MOUTH TWICE A DAY SOLD: 11/28/2020 [facility] 75 mcg 11/25/2020 12:00:00 AM EST tablet 30 TAKE ONE TABLET BY MOUTH EVERY MORNING ON AN EMPTY STOMACH TAKE ONE TABLET BY MOUTH EVERY MORNING O N AN EMPTY STOMACH SOLD: 11/28/2020 [facility] 81 mg 11/02/2020 12:00:00 AM EST tablet,delayed release (DR/EC) 30 TAKE ONE TABLET BY MOUTH EVERY DAY TAKE ONE TABLET BY MOUTH EVERY DAY SOLD: 11/05/2020 [facility] 20 mg 10/31/2020 12:00:00 AM EST capsule,delayed release (DR/EC) 60 TAKE 2 CAPSULES BY MOUTH EVERY MORNING TAKE 2 CAPSULES BY MOUTH EVERY MORNING SOLD: 11/02/2020 [facility] duloxetine 20 MG Delayed Release Oral Capsule Duloxetine HCL 09/09/2020 12:00:00 AM EST active [facility] ([facility]) Methocarbamol 500 MG Oral Tablet Methocarbamol 09/09/2020 12:00:00 AM EST ORAL active [facility] 500 mg 09/09/2020 12:00:00 AM EST tablet 180 TAKE 1 TO 2 TABLETS BY MOUTH THREE TIMES A DAY NEEDED FOR SPASMS TAKE 1 TO 2 TABLETS BY MOUTH THREE TIMES A DAY NEEDED FOR SPASMS SOLD: 09/09/2020 [facility] 20 mg 09/09/2020 12:00:00 AM EST capsule,delayed release (DR/EC) 60 TAKE ONE CAPSULE BY MOUTH EVERY MORNING FOR 14 DAYS, THEN INCREASE TO TAKE TWO CAPSULES BY MOUTH EVERY DAY. DO NOT START UNTIL OFF LEXAPRO. TAKE ONE CAPSULE BY MOUTH EVERY MORNING FOR 14 DAYS, THEN INCREASE TO TAKE TWO CAPSULES BY MOUTH EVERY DAY. DO NOT START UNTIL OFF LEXAPRO. SOLD: 09/09/2020 [facility] 20 mg 09/09/2020 12:00:00 AM EST capsule,delayed release (DR/EC) 60 TAKE ONE CAPSULE BY MOUTH EVERY MORNING FOR 14 DAYS, THEN INCREASE TO TAKE TWO CAPSULES BY MOUTH EVERY DAY. DO NOT START UNTIL OFF LEXAPRO. TAKE ONE CAPSULE BY MOUTH EVERY MORNING FOR 14 DAYS, THEN INCREASE TO TAKE TWO CAPSULES BY MOUTH EVERY DAY. DO NOT START UNTIL OFF LEXAPRO. SOLD: 10/06/2020 [facility] 50 mg 09/05/2020 12:00:00 AM EST tablet 30 TAKE ONE TABLET BY MOUTH EVERY DAY TAKE ONE TABLET BY MOUTH EVERY DAY SOLD: 11/05/2020 [facility] 50 mg 09/05/2020 12:00:00 AM EST tablet 30 TAKE ONE TABLET BY MOUTH EVERY DAY TAKE ONE TABLET BY MOUTH EVERY DAY SOLD: 12/07/2020 [facility] 50 mg 09/05/2020 12:00:00 AM EST tablet 30 TAKE ONE TABLET BY MOUTH EVERY DAY TAKE ONE TABLET BY MOUTH EVERY DAY SOLD: 10/06/2020 [facility] 50 mg 09/05/2020 12:00:00 AM EST tablet 30 TAKE ONE TABLET BY MOUTH EVERY DAY TAKE ONE TABLET BY MOUTH EVERY DAY SOLD: 09/05/2020 [facility] 81 mg 07/30/2020 12:00:00 AM EDT tablet,delayed release (DR/EC) 30 TAKE ONE TABLET BY MOUTH EVERY DAY TAKE ONE TABLET BY MOUTH EVERY DAY SOLD: 10/06/2020 [facility] 81 mg 07/30/2020 12:00:00 AM EDT tablet,delayed release (DR/EC) 30 TAKE ONE TABLET BY MOUTH EVERY DAY TAKE ONE TABLET BY MOUTH EVERY DAY SOLD: 09/05/2020 [facility] 81 mg 07/30/2020 12:00:00 AM EDT tablet,delayed release (DR/EC) 30 TAKE ONE TABLET BY MOUTH EVERY DAY TAKE ONE TABLET BY MOUTH EVERY DAY SOLD: 08/03/2020 [facility] gabapentin 100 MG Oral Capsule Gabapentin 07/29/2020 12:00:00 AM EDT ORAL completed MEDENT ([facility]) 100 mg 07/29/2020 12:00:00 AM EDT capsule 63 TAKE ONE CAPSULE BY MOUTH THREE TIMES A DAY FOR 7 DAYS, THEN TAKE TWO CAPSULES BY MOUTH THREE TIMES A DAY FOR 7 DAYS, THEN TAKE THREE CAPSULES BY MOUTH THREE TIMES A DAY TAKE ONE CAPSULE BY MOUTH THREE TIMES A DAY FOR 7 DAYS, THEN TAKE TWO CAPSULES BY MOUTH THREE TIMES A DAY FOR 7 DAYS, THEN TAKE THREE CAPSULES BY MOUTH THREE TIMES A DAY SOLD: 07/29/2020 [facility] 75 mcg 07/22/2020 12:00:00 AM EDT tablet 30 TAKE ONE TABLET BY MOUTH EVERY MORNING ON AN EMPTY STOMACH TAKE ONE TABLET BY MOUTH EVERY MORNING O N AN EMPTY STOMACH SOLD: 08/20/2020 [facility] 75 mcg 07/22/2020 12:00:00 AM EDT tablet 30 TAKE ONE TABLET BY MOUTH EVERY MORNING ON AN EMPTY STOMACH TAKE ONE TABLET BY MOUTH EVERY MORNING O N AN EMPTY STOMACH SOLD: 10/26/2020 [facility] 75 mcg 07/22/2020 12:00:00 AM EDT tablet 30 TAKE ONE TABLET BY MOUTH EVERY MORNING ON AN EMPTY STOMACH TAKE ONE TABLET BY MOUTH EVERY MORNING O N AN EMPTY STOMACH SOLD: 09/23/2020 [facility] 75 mcg 07/22/2020 12:00:00 AM EDT tablet 30 TAKE ONE TABLET BY MOUTH EVERY MORNING ON AN EMPTY STOMACH TAKE ONE TABLET BY MOUTH EVERY MORNING O N AN EMPTY STOMACH SOLD: 07/26/2020 [facility] Amitriptyline Hydrochloride 25 MG Oral Tablet AMITRIPTYLINE HCL 07/05/2020 12:00:00 AM EDT tablet 30 TAKE ONE TABLET BY MOUTH EVERY DAY AT BEDTIME TAKE ONE TABLET BY MOUTH EVERY DAY AT BEDTIME SOLD: 09/05/2020 [facility] Amitriptyline Hydrochloride 25 MG Oral Tablet AMITRIPTYLINE HCL 07/05/2020 12:00:00 AM EDT tablet 30 TAKE ONE TABLET BY MOUTH EVERY DAY AT BEDTIME TAKE ONE TABLET BY MOUTH EVERY DAY AT BEDTIME SOLD: 11/05/2020 [facility] Amitriptyline Hydrochloride 25 MG Oral Tablet AMITRIPTYLINE HCL 07/05/2020 12:00:00 AM EDT tablet 30 TAKE ONE TABLET BY MOUTH EVERY DAY AT BEDTIME TAKE ONE TABLET BY MOUTH EVERY DAY AT BEDTIME SOLD: 08/03/2020 [facility] Amitriptyline Hydrochloride 25 MG Oral Tablet AMITRIPTYLINE HCL 07/05/2020 12:00:00 AM EDT tablet 30 TAKE ONE TABLET BY MOUTH EVERY DAY AT BEDTIME TAKE ONE TABLET BY MOUTH EVERY DAY AT BEDTIME SOLD: 07/06/2020 [facility] Amitriptyline Hydrochloride 25 MG Oral Tablet AMITRIPTYLINE HCL 07/05/2020 12:00:00 AM EDT tablet 30 TAKE ONE TABLET BY MOUTH EVERY DAY AT BEDTIME TAKE ONE TABLET BY MOUTH EVERY DAY AT BEDTIME SOLD: 10/06/2020 [facility] Amitriptyline Hydrochloride 25 MG Oral Tablet AMITRIPTYLINE HCL 07/05/2020 12:00:00 AM EDT tablet 30 TAKE ONE TABLET BY MOUTH EVERY DAY AT BEDTIME TAKE ONE TABLET BY MOUTH EVERY DAY AT BEDTIME SOLD: 12/07/2020 [facility] 20 mg 06/23/2020 12:00:00 AM EDT tablet 18 TAKE 3 TABLETS BY MOUTH ONCE A DAY FOR 3 DAYS THEN 2 TABLETS DAILY FOR 3 DAYS, THEN 1 TABLET DAILY FOR 3 DAYS TAKE 3 TABLETS BY MOUTH ONCE A DAY FOR 3 DAYS THEN 2 TABLETS DAILY FOR 3 DAYS, THEN 1 TABLET DAILY FOR 3 DAYS SOLD: 06/23/2020 [facility] Cyclobenzaprine hydrochloride 5 MG Oral Tablet CYCLOBENZAPRI NE HCL 06/09/2020 12:00:00 AM EDT tablet 30 TAKE ONE TABLET BY MOUTH THREE TIMES A DAY NEEDED FOR MUSCLE SPASM TAKE ONE TABLET BY MOUTH THREE TIMES A D AY NEEDED FOR MUSCLE SPASM SOLD: 06/09/2020 [facility] 500 mg 06/09/2020 12:00:00 AM EDT tablet 30 TAKE ONE TABLET BY MOUTH TWO TIMES A DAY WITH FOOD TAKE ONE TABLET BY MOUTH TWO TIMES A DAY WITH FOOD GRADY [facility] 500 mg 06/06/2020 12:00:00 AM EDT tablet 42 TAKE ONE TABLET BY MOUTH THREE TIMES A DAY TAKE ONE TABLET BY MOUTH THREE TIMES A DAY SOLD: 06/06/2020 [facility] Escitalopram 5 MG Oral Tablet ESCITALOPRAM OXALATE 05/12/2020 12 :00:00 AM EDT tablet 30 TAKE ONE TABLET BY MOUTH EVERY D AY TAKE ONE TABLET BY MOUTH EVERY DAY SOLD: 07/14/2020 [facility] Escitalopram 5 MG Oral Tablet ESCITALOPRAM OXALATE 05/12/2020 12 :00:00 AM EDT tablet 30 TAKE ONE TABLET BY MOUTH EVERY D AY TAKE ONE TABLET BY MOUTH EVERY DAY SOLD: 05/13/2020 [facility] Escitalopram 5 MG Oral Tablet ESCITALOPRAM OXALATE 05/12/2020 12 :00:00 AM EDT tablet 30 TAKE ONE TABLET BY MOUTH EVERY D AY TAKE ONE TABLET BY MOUTH EVERY DAY SOLD: 08/10/2020 [facility] Escitalopram 5 MG Oral Tablet ESCITALOPRAM OXALATE 05/12/2020 12 :00:00 AM EDT tablet 30 TAKE ONE TABLET BY MOUTH EVERY D AY TAKE ONE TABLET BY MOUTH EVERY DAY SOLD: 06/09/2020 [facility] Acetaminophen 300 MG / Codeine Phosphate 30 MG Oral Tablet [Tylenol with Codeine] Tylenol with Codeine #3 300-30 MG Tylenol with Codeine #3 300-30 MG 04/06/2020 12:00:00 AM EDT 1.0 {tablet_as_needed} suspended Tylenol with Codeine #3 300-30 MG eCW1 ([facility]) Ondansetron 4 MG Oral Tablet [Zofran] Zofran 4 MG Zofran 4 M G 04/06/2020 12:00:00 AM EDT 1.0 {tablet} active Zo terry 4 MG eCW1 ([facility]) 300-30 mg 04/06/2020 12:00:00 AM EDT tablet 20 TAKE ONE TABLET BY MOUTH EVERY 6 HOURS NEEDED , MAXIMUM DAILY DOSE = 4 TABLETS TAKE ONE TABLET BY MOUTH EVERY 6 HOURS NEEDED , MAXIMUM DAILY DOSE = 4 TABLETS SOLD: 04/06/2020 [facility] Tylenol with Codeine #3 300-30 MG UNK 04/06/2020 12:00:00 AM EDT 1.0 {tablet_as_needed} suspended Tylenol wit h Codeine #3 300-30 MG eCW1 ([facility]) Tylenol with Codeine #3 300-30 MG UNK 04/06/2020 12:00:00 AM EDT 1.0 {tablet_as_needed} suspended Tylenol wit h Codeine #3 300-30 MG eCW1 ([facility]) Ondansetron 4 MG Oral Tablet [Zofran] Zofran 4 MG Zofran 4 M G 04/06/2020 12:00:00 AM EDT 1.0 {tablet} suspended Zofran 4 MG eCW1 ([facility]) Ondansetron 4 MG Oral Tablet [Zofran] Zofran 4 MG Zofran 4 M G 04/06/2020 12:00:00 AM EDT 1.0 {tablet} suspended Zofran 4 MG eCW1 ([facility]) Tylenol with Codeine #3 300-30 MG UNK 04/06/2020 12:00:00 AM EDT 1.0 {tablet_as_needed} suspended Tylenol wit h Codeine #3 300-30 MG eCW1 ([facility]) Ondansetron 4 MG Oral Tablet [Zofran] Zofran 4 MG Zofran 4 M G 04/06/2020 12:00:00 AM EDT 1.0 {tablet} suspended Zofran 4 MG eCW1 ([facility]) Ondansetron 4 MG Oral Tablet [Zofran] Zofran 4 MG Zofran 4 M G 04/06/2020 12:00:00 AM EDT 1.0 {tablet} suspended Zofran 4 MG eCW1 ([facility]) Tylenol with Codeine #3 300-30 MG UNK 04/06/2020 12:00:00 AM EDT 1.0 {tablet_as_needed} suspended Tylenol wit h Codeine #3 300-30 MG eCW1 ([facility]) Ondansetron 4 MG Oral Tablet [Zofran] Zofran 4 MG Zofran 4 M G 04/06/2020 12:00:00 AM EDT 1.0 {tablet} suspended Zofran 4 MG eCW1 ([facility]) Ondansetron 4 MG Oral Tablet [Zofran] Zofran 4 MG Zofran 4 M G 04/06/2020 12:00:00 AM EDT 1.0 {tablet} suspended Zofran 4 MG eCW1 ([facility]) Tylenol with Codeine #3 300-30 MG UNK 04/06/2020 12:00:00 AM EDT 1.0 {tablet_as_needed} suspended Tylenol wit h Codeine #3 300-30 MG eCW1 ([facility]) Ondansetron 4 MG Oral Tablet [Zofran] Zofran 4 MG Zofran 4 M G 04/06/2020 12:00:00 AM EDT 1.0 {tablet} suspended Zofran 4 MG eCW1 ([facility]) Ondansetron 4 MG Oral Tablet [Zofran] Zofran 4 MG Zofran 4 M G 04/06/2020 12:00:00 AM EDT 1.0 {tablet} suspended Zofran 4 MG eCW1 ([facility]) Ondansetron 4 MG Oral Tablet [Zofran] Zofran 4 MG Zofran 4 M G 04/06/2020 12:00:00 AM EDT 1.0 {tablet} suspended Zofran 4 MG eCW1 ([facility]) 4 mg 04/06/2020 12:00:00 AM EDT tablet 30 TAKE ONE TABLET BY MOUTH EVERY DAY TAKE ONE TABLET BY MOUTH EVERY DAY SOLD: 04/06/2020 [facility] 4 mg 04/06/2020 12:00:00 AM EDT tablet 30 TAKE ONE TABLET BY MOUTH EVERY DAY TAKE ONE TABLET BY MOUTH EVERY DAY SOLD: 05/02/2020 [facility] Tylenol with Codeine #3 300-30 MG UNK 04/06/2020 12:00:00 AM EDT 1.0 {tablet_as_needed} suspended Tylenol wit h Codeine #3 300-30 MG eCW1 ([facility]) Acetaminophen 300 MG / Codeine Phosphate 30 MG Oral Tablet [Tylenol with Codeine] Tylenol with Codeine #3 300-30 MG Tylenol with Codeine #3 300-30 MG 04/06/2020 12:00:00 AM EDT 1.0 {tablet_as_needed} suspended Tylenol with Codeine #3 300-30 MG eCW1 ([facility]) Acetaminophen 300 MG / Codeine Phosphate 30 MG Oral Tablet [Tylenol with Codeine] Tylenol with Codeine #3 300-30 MG Tylenol with Codeine #3 300-30 MG 04/06/2020 12:00:00 AM EDT 1.0 {tablet_as_needed} active Tylenol with Codeine #3 300-30 MG eCW1 ([facility]) Tylenol with Codeine #3 300-30 MG UNK 04/06/2020 12:00:00 AM EDT 1.0 {tablet_as_needed} suspended Tylenol wit h Codeine #3 300-30 MG eCW1 ([facility]) 81 mg 04/01/2020 12:00:00 AM EDT tablet,delayed release (DR/EC) 30 TAKE ONE TABLET BY MOUTH EVERY DAY TAKE ONE TABLET BY MOUTH EVERY DAY SOLD: 06/02/2020 [facility] 81 mg 04/01/2020 12:00:00 AM EDT tablet,delayed release (DR/EC) 30 TAKE ONE TABLET BY MOUTH EVERY DAY TAKE ONE TABLET BY MOUTH EVERY DAY SOLD: 07/04/2020 [facility] 81 mg 04/01/2020 12:00:00 AM EDT tablet,delayed release (DR/EC) 30 TAKE ONE TABLET BY MOUTH EVERY DAY TAKE ONE TABLET BY MOUTH EVERY DAY SOLD: 05/02/2020 [facility] 81 mg 04/01/2020 12:00:00 AM EDT tablet,delayed release (DR/EC) 30 TAKE ONE TABLET BY MOUTH EVERY DAY TAKE ONE TABLET BY MOUTH EVERY DAY SOLD: 04/01/2020 [facility] 300-30 mg 03/24/2020 12:00:00 AM EDT tablet 20 TAKE ONE TABLET BY MOUTH EVERY 6 HOURS NEEDED FOR MILD/MODERATE PAIN MAXIMUM DAILY DOSE = FOUR TABLETS TAKE ONE TABLET BY MOUTH EVERY 6 HOURS A S NEEDED FOR MILD/MODERATE PAIN MAXIMUM DAILY DOSE = FOUR TABLETS SOLD: 03/24/2020 [facility] 4 mg 03/24/2020 12:00:00 AM EDT tablet,disintegrating 1 6 DISSOLVE ONE TABLET ON TONGUE EVERY 6 TO 8 HOURS NEEDED FOR NAUSEA AND VOMITING DISSOLVE ONE TABLET ON TONGUE EVERY 6 TO 8 HOURS NEEDED FOR NAUSEA AND VOMITING SOLD: 03/24/2020 [facility] 100 mg 03/23/2020 12:00:00 AM EDT capsule 30 TAKE ONE CAPSULE BY MOUTH TWICE A DAY TAKE ONE CAPSULE BY MOUTH TWICE A DAY SOLD: 03/24/2020 [facility] Escitalopram 5 MG Oral Tablet [Lexapro] Lexapro 5 MG Lexapro 5 MG 03/07/2020 12:00:00 AM EDT 1.0 {tablet} active Le xapro 5 MG eCW1 ([facility]) Escitalopram 5 MG Oral Tablet [Lexapro] Lexapro 5 MG Lexapro 5 MG 03/07/2020 12:00:00 AM EDT 1.0 {tablet} active Le xapro 5 MG eCW1 ([facility]) Escitalopram 5 MG Oral Tablet [Lexapro] Lexapro 5 MG Lexapro 5 MG 03/07/2020 12:00:00 AM EDT 1.0 {tablet} active Le xapro 5 MG eCW1 ([facility]) Escitalopram 5 MG Oral Tablet [Lexapro] Lexapro 5 MG Lexapro 5 MG 03/07/2020 12:00:00 AM EDT 1.0 {tablet} active Le xapro 5 MG eCW1 ([facility]) Escitalopram 5 MG Oral Tablet [Lexapro] Lexapro 5 MG Lexapro 5 MG 03/07/2020 12:00:00 AM EDT 1.0 {tablet} active Le xapro 5 MG eCW1 ([facility]) Escitalopram 5 MG Oral Tablet [Lexapro] Lexapro 5 MG Lexapro 5 MG 03/07/2020 12:00:00 AM EDT 1.0 {tablet} active Le xapro 5 MG eCW1 ([facility]) Escitalopram 5 MG Oral Tablet [Lexapro] Lexapro 5 MG Lexapro 5 MG 03/07/2020 12:00:00 AM EDT 1.0 {tablet} active Le xapro 5 MG eCW1 ([facility]) Escitalopram 5 MG Oral Tablet [Lexapro] Lexapro 5 MG Lexapro 5 MG 03/07/2020 12:00:00 AM EDT 1.0 {tablet} active Le xapro 5 MG eCW1 ([facility]) Escitalopram 5 MG Oral Tablet [Lexapro] Lexapro 5 MG Lexapro 5 MG 03/07/2020 12:00:00 AM EDT 1.0 {tablet} active Le xapro 5 MG eCW1 ([facility]) Escitalopram 5 MG Oral Tablet [Lexapro] Lexapro 5 MG Lexapro 5 MG 03/07/2020 12:00:00 AM EDT 1.0 {tablet} active Le xapro 5 MG eCW1 ([facility]) Escitalopram 5 MG Oral Tablet [Lexapro] Lexapro 5 MG Lexapro 5 MG 03/07/2020 12:00:00 AM EDT 1.0 {tablet} active Le xapro 5 MG eCW1 ([facility]) Escitalopram 5 MG Oral Tablet [Lexapro] Lexapro 5 MG Lexapro 5 MG 03/07/2020 12:00:00 AM EDT 1.0 {tablet} active Le xapro 5 MG eCW1 ([facility]) Escitalopram 5 MG Oral Tablet [Lexapro] Lexapro 5 MG Lexapro 5 MG 03/07/2020 12:00:00 AM EDT 1.0 {tablet} active Le xapro 5 MG eCW1 ([facility]) Escitalopram 5 MG Oral Tablet [Lexapro] Lexapro 5 MG Lexapro 5 MG 03/07/2020 12:00:00 AM EDT 1.0 {tablet} active Le xapro 5 MG eCW1 ([facility]) Escitalopram 5 MG Oral Tablet ESCITALOPRAM OXALATE 03/07/2020 12 :00:00 AM EDT tablet 30 TAKE ONE TABLET BY MOUTH EVERY D AY TAKE ONE TABLET BY MOUTH EVERY DAY SOLD: 03/07/2020 [facility] Escitalopram 5 MG Oral Tablet [Lexapro] Lexapro 5 MG Lexapro 5 MG 03/07/2020 12:00:00 AM EDT 1.0 {tablet} active Le xapro 5 MG eCW1 ([facility]) Escitalopram 5 MG Oral Tablet ESCITALOPRAM OXALATE 03/07/2020 12 :00:00 AM EDT tablet 30 TAKE ONE TABLET BY MOUTH EVERY D AY TAKE ONE TABLET BY MOUTH EVERY DAY SOLD: 04/06/2020 [facility] 50 mg 02/29/2020 12:00:00 AM EDT tablet 30 TAKE ONE TABLET BY MOUTH EVERY DAY TAKE ONE TABLET BY MOUTH EVERY DAY SOLD: 06/02/2020 [facility] 50 mg 02/29/2020 12:00:00 AM EDT tablet 30 TAKE ONE TABLET BY MOUTH EVERY DAY TAKE ONE TABLET BY MOUTH EVERY DAY SOLD: 08/03/2020 [facility] 50 mg 02/29/2020 12:00:00 AM EDT tablet 30 TAKE ONE TABLET BY MOUTH EVERY DAY TAKE ONE TABLET BY MOUTH EVERY DAY SOLD: 03/31/2020 [facility] 50 mg 02/29/2020 12:00:00 AM EDT tablet 30 TAKE ONE TABLET BY MOUTH EVERY DAY TAKE ONE TABLET BY MOUTH EVERY DAY SOLD: 05/02/2020 [facility] 50 mg 02/29/2020 12:00:00 AM EDT tablet 30 TAKE ONE TABLET BY MOUTH EVERY DAY TAKE ONE TABLET BY MOUTH EVERY DAY SOLD: 07/04/2020 [facility] 50 mg 02/29/2020 12:00:00 AM EDT tablet 30 TAKE ONE TABLET BY MOUTH EVERY DAY TAKE ONE TABLET BY MOUTH EVERY DAY SOLD: 02/29/2020 [facility] Losartan Potassium 50 MG Oral Tablet Losartan Potassium 50 M G 01/07/2020 12:00:00 AM EDT 1.0 {tablet} active Lo sartan Potassium 50 MG eCW1 ([facility]) Losartan Potassium 50 MG Oral Tablet Losartan Potassium 50 M G 01/07/2020 12:00:00 AM EDT active 1 tablet eCW1 ([facility]) Losartan Potassium 50 MG Oral Tablet Losartan Potassium 50 M G 01/07/2020 12:00:00 AM EDT 1.0 {tablet} active Lo sartan Potassium 50 MG eCW1 ([facility]) 25 mg 01/07/2020 12:00:00 AM EDT tablet 30 TAKE ONE TABLET BY MOUTH EVERY DAY TAKE ONE TABLET BY MOUTH EVERY DAY SOLD: 01/07/2020 [facility] Losartan Potassium 50 MG Oral Tablet Losartan Potassium 50 M G 01/07/2020 12:00:00 AM EDT 1.0 {tablet} active Lo sartan Potassium 50 MG eCW1 ([facility]) Losartan Potassium 25 MG Oral Tablet Losartan Potassium 25 M G 01/07/2020 12:00:00 AM EDT active 1 tablet eCW1 ([facility]) Losartan Potassium 50 MG Oral Tablet Losartan Potassium 50 M G 01/07/2020 12:00:00 AM EDT 1.0 {tablet} active Lo sartan Potassium 50 MG eCW1 ([facility]) Losartan Potassium 50 MG Oral Tablet Losartan Potassium 50 M G 01/07/2020 12:00:00 AM EDT 1.0 {tablet} active Lo sartan Potassium 50 MG eCW1 ([facility]) 25 mg 01/07/2020 12:00:00 AM EDT tablet 30 TAKE ONE TABLET BY MOUTH EVERY DAY TAKE ONE TABLET BY MOUTH EVERY DAY SOLD: 02/06/2020 [facility] Losartan Potassium 50 MG Oral Tablet Losartan Potassium 50 M G 01/07/2020 12:00:00 AM EDT 1.0 {tablet} active Lo sartan Potassium 50 MG eCW1 ([facility]) Losartan Potassium 50 MG Oral Tablet Losartan Potassium 50 M G 01/07/2020 12:00:00 AM EDT active 1 tablet eCW1 ([facility]) Losartan Potassium 50 MG Oral Tablet Losartan Potassium 50 M G 01/07/2020 12:00:00 AM EDT active 1 tablet eCW1 ([facility]) Losartan Potassium 50 MG Oral Tablet Losartan Potassium 50 M G 01/07/2020 12:00:00 AM EDT 1.0 {tablet} active Lo sartan Potassium 50 MG eCW1 ([facility]) Losartan Potassium 50 MG Oral Tablet Losartan Potassium 50 M G 01/07/2020 12:00:00 AM EDT 1.0 {tablet} active Lo sartan Potassium 50 MG eCW1 ([facility]) Losartan Potassium 50 MG Oral Tablet Losartan Potassium 50 M G 01/07/2020 12:00:00 AM EDT 1.0 {tablet} active Lo sartan Potassium 50 MG eCW1 ([facility]) Losartan Potassium 50 MG Oral Tablet Losartan Potassium 50 M G 01/07/2020 12:00:00 AM EDT 1.0 {tablet} active Lo sartan Potassium 50 MG eCW1 ([facility]) Losartan Potassium 50 MG Oral Tablet Losartan Potassium 50 M G 01/07/2020 12:00:00 AM EDT 1.0 {tablet} active Lo sartan Potassium 50 MG eCW1 ([facility]) Losartan Potassium 50 MG Oral Tablet Losartan Potassium 50 M G 01/07/2020 12:00:00 AM EDT 1.0 {tablet} active Lo sartan Potassium 50 MG eCW1 ([facility]) Losartan Potassium 50 MG Oral Tablet Losartan Potassium 50 M G 01/07/2020 12:00:00 AM EDT 1.0 {tablet} active Lo sartan Potassium 50 MG eCW1 ([facility]) Losartan Potassium 25 MG Oral Tablet Losartan Potassium 25 M G 01/07/2020 12:00:00 AM EDT active 1 tablet eCW1 ([facility]) Losartan Potassium 50 MG Oral Tablet Losartan Potassium 50 M G 01/07/2020 12:00:00 AM EDT 1.0 {tablet} active Lo sartan Potassium 50 MG eCW1 ([facility]) Losartan Potassium 25 MG Oral Tablet Losartan Potassium 25 M G 01/07/2020 12:00:00 AM EDT active 1 tablet eCW1 ([facility]) Losartan Potassium 50 MG Oral Tablet Losartan Potassium 50 M G 01/07/2020 12:00:00 AM EDT 1.0 {tablet} active Lo sartan Potassium 50 MG eCW1 ([facility]) Lisinopril 2.5 MG Oral Tablet Lisinopril 2.5 MG 12/29/2019 12:00:00 A M EDT active 1 tablet eCW1 ([facility]) Lisinopril 2.5 MG Oral Tablet Lisinopril 2.5 MG 12/23/2019 12:00:00 A M EST active 1 tablet eCW1 ([facility]) Lisinopril 2.5 MG Oral Tablet Lisinopril 2.5 MG 12/23/2019 12:00:00 AM EST 1.0 {tablet} suspended Lisinopril 2.5 MG eC W1 ([facility]) Lisinopril 2.5 MG Oral Tablet Lisinopril 2.5 MG 12/23/2019 12:00:00 AM EST 1.0 {tablet} suspended Lisinopril 2.5 MG eC W1 ([facility]) Lisinopril 2.5 MG Oral Tablet Lisinopril 2.5 MG 12/23/2019 12:00:00 A M EST suspended 1 tablet eCW1 ([facility]) Lisinopril 2.5 MG Oral Tablet Lisinopril 2.5 MG 12/23/2019 12:00:00 AM EST 1.0 {tablet} suspended Lisinopril 2.5 MG eC W1 ([facility]) Lisinopril 2.5 MG Oral Tablet Lisinopril 2.5 MG 12/23/2019 12:00:00 AM EST 1.0 {tablet} suspended Lisinopril 2.5 MG eC W1 ([facility]) Lisinopril 2.5 MG Oral Tablet Lisinopril 2.5 MG 12/23/2019 12:00:00 AM EST 1.0 {tablet} suspended Lisinopril 2.5 MG eC W1 ([facility]) Lisinopril 2.5 MG Oral Tablet Lisinopril 2.5 MG 12/23/2019 12:00:00 AM EST 1.0 {tablet} suspended Lisinopril 2.5 MG eC W1 ([facility]) Lisinopril 2.5 MG Oral Tablet Lisinopril 2.5 MG 12/23/2019 12:00:00 AM EST 1.0 {tablet} suspended Lisinopril 2.5 MG eC W1 ([facility]) Lisinopril 2.5 MG Oral Tablet Lisinopril 2.5 MG 12/23/2019 12:00:00 AM EST 1.0 {tablet} suspended Lisinopril 2.5 MG eC W1 ([facility]) Lisinopril 2.5 MG Oral Tablet Lisinopril 2.5 MG 12/23/2019 12:00:00 AM EST 1.0 {tablet} suspended Lisinopril 2.5 MG eC W1 ([facility]) Lisinopril 2.5 MG Oral Tablet Lisinopril 2.5 MG 12/23/2019 12:00:00 AM EST 1.0 {tablet} suspended Lisinopril 2.5 MG eC W1 ([facility]) Lisinopril 2.5 MG Oral Tablet Lisinopril 2.5 MG 12/23/2019 12:00:00 AM EST 1.0 {tablet} suspended Lisinopril 2.5 MG eC W1 ([facility]) Lisinopril 2.5 MG Oral Tablet Lisinopril 2.5 MG 12/23/2019 12:00:00 A M EST suspended 1 tablet eCW1 ([facility]) Lisinopril 2.5 MG Oral Tablet Lisinopril 2.5 MG 12/23/2019 12:00:00 AM EST 1.0 {tablet} suspended Lisinopril 2.5 MG eC W1 ([facility]) Lisinopril 2.5 MG Oral Tablet Lisinopril 2.5 MG 12/23/2019 12:00:00 A M EST suspended 1 tablet eCW1 ([facility]) Lisinopril 2.5 MG Oral Tablet Lisinopril 2.5 MG 12/23/2019 12:00:00 AM EST 1.0 {tablet} suspended Lisinopril 2.5 MG eC W1 ([facility]) 2.5 mg 12/23/2019 12:00:00 AM EST tablet 30 TAKE ONE TABLET BY MOUTH EVERY DAY TAKE ONE TABLET BY MOUTH EVERY DAY SOLD: 12/23/2019 [facility] Lisinopril 2.5 MG Oral Tablet Lisinopril 2.5 MG 12/23/2019 12:00:00 AM EST 1.0 {tablet} suspended Lisinopril 2.5 MG eC W1 ([facility]) Lisinopril 2.5 MG Oral Tablet Lisinopril 2.5 MG 12/23/2019 12:00:00 AM EST 1.0 {tablet} suspended Lisinopril 2.5 MG eC W1 ([facility]) 75 mcg 12/19/2019 12:00:00 AM EST tablet 30 TAKE ONE TABLET BY MOUTH EVERY MORNING ON AN EMPTY STOMACH TAKE ONE TABLET BY MOUTH EVERY MORNING O N AN EMPTY STOMACH SOLD: 02/19/2020 [facility] 75 mcg 12/19/2019 12:00:00 AM EST tablet 30 TAKE ONE TABLET BY MOUTH EVERY MORNING ON AN EMPTY STOMACH TAKE ONE TABLET BY MOUTH EVERY MORNING O N AN EMPTY STOMACH SOLD: 12/20/2019 [facility] 75 mcg 12/19/2019 12:00:00 AM EST tablet 30 TAKE ONE TABLET BY MOUTH EVERY MORNING ON AN EMPTY STOMACH TAKE ONE TABLET BY MOUTH EVERY MORNING O N AN EMPTY STOMACH SOLD: 03/21/2020 [facility] 75 mcg 12/19/2019 12:00:00 AM EST tablet 30 TAKE ONE TABLET BY MOUTH EVERY MORNING ON AN EMPTY STOMACH TAKE ONE TABLET BY MOUTH EVERY MORNING O N AN EMPTY STOMACH SOLD: 01/18/2020 [facility] Amitriptyline Hydrochloride 25 MG Oral Tablet Amitript yline HCl 25 MG Amitriptyline HCl 25 MG 12/08/2019 12:00:00 AM EST 1.0 {tablet_at_b edtime} active Amitriptyline HCl 25 MG e CW1 ([facility]) 0.3 ML Epinephrine 1 MG/ML Auto-Injector [Epipen] EpiP en 2-Bryce 0.3 MG/0.3ML EpiPen 2-Bryce 0.3 MG/0.3ML 12/08/2019 12:00:00 AM EST active EpiPen 2-Bryce 0.3 MG/0.3ML eCW1 ([facility]) Amitriptyline Hydrochloride 25 MG Oral Tablet Amitript yline HCl 25 MG Amitriptyline HCl 25 MG 12/08/2019 12:00:00 AM EST active 1 tablet at bedtime eCW1 ([facility]) 0.3 ML Epinephrine 1 MG/ML Auto-Injector [Epipen] EpiP en 2-Bryce 0.3 MG/0.3ML EpiPen 2-Bryce 0.3 MG/0.3ML 12/08/2019 12:00:00 AM EST active EpiPen 2-Bryce 0.3 MG/0.3ML eCW1 ([facility]) 0.3 ML Epinephrine 1 MG/ML Auto-Injector [Epipen] EpiP en 2-Bryce 0.3 MG/0.3ML EpiPen 2-Bryce 0.3 MG/0.3ML 12/08/2019 12:00:00 AM EST active EpiPen 2-Bryce 0.3 MG/0.3ML eCW1 ([facility]) 0.3 ML Epinephrine 1 MG/ML Auto-Injector [Epipen] EpiP en 2-Bryce 0.3 MG/0.3ML EpiPen 2-Bryce 0.3 MG/0.3ML 12/08/2019 12:00:00 AM EST active EpiPen 2-Bryce 0.3 MG/0.3ML eCW1 ([facility]) Amitriptyline Hydrochloride 25 MG Oral Tablet Amitript yline HCl 25 MG Amitriptyline HCl 25 MG 12/08/2019 12:00:00 AM EST 1.0 {tablet_at_b edtime} active Amitriptyline HCl 25 MG e CW1 ([facility]) 0.3 ML Epinephrine 1 MG/ML Auto-Injector [Epipen] EpiP en 2-Bryce 0.3 MG/0.3ML EpiPen 2-Bryce 0.3 MG/0.3ML 12/08/2019 12:00:00 AM EST active as directed eCW1 ([facility]) Amitriptyline Hydrochloride 25 MG Oral Tablet Amitript yline HCl 25 MG Amitriptyline HCl 25 MG 12/08/2019 12:00:00 AM EST active 1 tablet at bedtime eCW1 ([facility]) 0.3 ML Epinephrine 1 MG/ML Auto-Injector [Epipen] EpiP en 2-Bryce 0.3 MG/0.3ML EpiPen 2-Bryce 0.3 MG/0.3ML 12/08/2019 12:00:00 AM EST active as directed eCW1 ([facility]) Amitriptyline Hydrochloride 25 MG Oral Tablet Amitript yline HCl 25 MG Amitriptyline HCl 25 MG 12/08/2019 12:00:00 AM EST 1.0 {tablet_at_b edtime} active Amitriptyline HCl 25 MG e CW1 ([facility]) 0.3 ML Epinephrine 1 MG/ML Auto-Injector [Epipen] EpiP en 2-Bryce 0.3 MG/0.3ML EpiPen 2-Bryce 0.3 MG/0.3ML 12/08/2019 12:00:00 AM EST active EpiPen 2-Bryce 0.3 MG/0.3ML eCW1 ([facility]) 0.3 ML Epinephrine 1 MG/ML Auto-Injector [Epipen] EpiP en 2-Bryce 0.3 MG/0.3ML EpiPen 2-Bryce 0.3 MG/0.3ML 12/08/2019 12:00:00 AM EST active as directed eCW1 ([facility]) Amitriptyline Hydrochloride 25 MG Oral Tablet Amitript yline HCl 25 MG Amitriptyline HCl 25 MG 12/08/2019 12:00:00 AM EST 1.0 {tablet_at_b edtime} active Amitriptyline HCl 25 MG e CW1 ([facility]) Amitriptyline Hydrochloride 25 MG Oral Tablet Amitript yline HCl 25 MG Amitriptyline HCl 25 MG 12/08/2019 12:00:00 AM EST 1.0 {tablet_at_b edtime} active Amitriptyline HCl 25 MG e CW1 ([facility]) Amitriptyline Hydrochloride 25 MG Oral Tablet Amitript yline HCl 25 MG Amitriptyline HCl 25 MG 12/08/2019 12:00:00 AM EST 1.0 {tablet_at_b edtime} active Amitriptyline HCl 25 MG e CW1 ([facility]) 0.3 ML Epinephrine 1 MG/ML Auto-Injector [Epipen] EpiP en 2-Bryce 0.3 MG/0.3ML EpiPen 2-Bryce 0.3 MG/0.3ML 12/08/2019 12:00:00 AM EST active EpiPen 2-Bryce 0.3 MG/0.3ML eCW1 ([facility]) Amitriptyline Hydrochloride 25 MG Oral Tablet Amitript yline HCl 25 MG Amitriptyline HCl 25 MG 12/08/2019 12:00:00 AM EST 1.0 {tablet_at_b edtime} active Amitriptyline HCl 25 MG e CW1 ([facility]) Amitriptyline Hydrochloride 25 MG Oral Tablet Amitript yline HCl 25 MG Amitriptyline HCl 25 MG 12/08/2019 12:00:00 AM EST active 1 tablet at bedtime eCW1 ([facility]) Amitriptyline Hydrochloride 25 MG Oral Tablet Amitript yline HCl 25 MG Amitriptyline HCl 25 MG 12/08/2019 12:00:00 AM EST active 1 tablet at bedtime eCW1 ([facility]) 0.3 ML Epinephrine 1 MG/ML Auto-Injector [Epipen] EpiP en 2-Bryce 0.3 MG/0.3ML EpiPen 2-Bryce 0.3 MG/0.3ML 12/08/2019 12:00:00 AM EST active EpiPen 2-Bryce 0.3 MG/0.3ML eCW1 ([facility]) Amitriptyline Hydrochloride 25 MG Oral Tablet Amitript yline HCl 25 MG Amitriptyline HCl 25 MG 12/08/2019 12:00:00 AM EST active 1 tablet at bedtime eCW1 ([facility]) 0.3 ML Epinephrine 1 MG/ML Auto-Injector [Epipen] EpiP en 2-Bryce 0.3 MG/0.3ML EpiPen 2-Bryce 0.3 MG/0.3ML 12/08/2019 12:00:00 AM EST active as directed eCW1 ([facility]) 0.3 mg/0.3 mL 12/08/2019 12:00:00 AM EST auto-injector 2 USE DIRECTED NEEDED USE DIRECTED NEEDED SOLD: 12/08/2019 [facility] Amitriptyline Hydrochloride 25 MG Oral Tablet Amitript yline HCl 25 MG Amitriptyline HCl 25 MG 12/08/2019 12:00:00 AM EST 1.0 {tablet_at_b edtime} active Amitriptyline HCl 25 MG e CW1 ([facility]) Amitriptyline Hydrochloride 25 MG Oral Tablet Amitript yline HCl 25 MG Amitriptyline HCl 25 MG 12/08/2019 12:00:00 AM EST 1.0 {tablet_at_b edtime} active Amitriptyline HCl 25 MG e CW1 ([facility]) 0.3 ML Epinephrine 1 MG/ML Auto-Injector [Epipen] EpiP en 2-Bryce 0.3 MG/0.3ML EpiPen 2-Bryce 0.3 MG/0.3ML 12/08/2019 12:00:00 AM EST active EpiPen 2-Bryce 0.3 MG/0.3ML eCW1 ([facility]) Amitriptyline Hydrochloride 25 MG Oral Tablet Amitript yline HCl 25 MG Amitriptyline HCl 25 MG 12/08/2019 12:00:00 AM EST 1.0 {tablet_at_b edtime} active Amitriptyline HCl 25 MG e CW1 ([facility]) 0.3 ML Epinephrine 1 MG/ML Auto-Injector [Epipen] EpiP en 2-Bryce 0.3 MG/0.3ML EpiPen 2-Bryce 0.3 MG/0.3ML 12/08/2019 12:00:00 AM EST active EpiPen 2-Bryce 0.3 MG/0.3ML eCW1 ([facility]) Amitriptyline Hydrochloride 25 MG Oral Tablet AMITRIPTYLINE HCL 12/08/2019 12:00:00 AM EST tablet 30 TAKE ONE TABLET BY MOUTH AT BEDTIME TAKE ONE TABLET BY MOUTH AT BEDTIME SOLD: 05/02/2020 [facility] 0.3 ML Epinephrine 1 MG/ML Auto-Injector [Epipen] EpiP en 2-Bryce 0.3 MG/0.3ML EpiPen 2-Bryce 0.3 MG/0.3ML 12/08/2019 12:00:00 AM EST active EpiPen 2-Bryce 0.3 MG/0.3ML eCW1 ([facility]) Amitriptyline Hydrochloride 25 MG Oral Tablet Amitript yline HCl 25 MG Amitriptyline HCl 25 MG 12/08/2019 12:00:00 AM EST 1.0 {tablet_at_b edtime} active Amitriptyline HCl 25 MG e CW1 ([facility]) 0.3 ML Epinephrine 1 MG/ML Auto-Injector [Epipen] EpiP en 2-Bryce 0.3 MG/0.3ML EpiPen 2-Bryce 0.3 MG/0.3ML 12/08/2019 12:00:00 AM EST active EpiPen 2-Bryce 0.3 MG/0.3ML eCW1 ([facility]) 0.3 ML Epinephrine 1 MG/ML Auto-Injector [Epipen] EpiP en 2-Bryce 0.3 MG/0.3ML EpiPen 2-Bryce 0.3 MG/0.3ML 12/08/2019 12:00:00 AM EST active EpiPen 2-Bryce 0.3 MG/0.3ML eCW1 ([facility]) Amitriptyline Hydrochloride 25 MG Oral Tablet AMITRIPTYLINE HCL 12/08/2019 12:00:00 AM EST tablet 30 TAKE ONE TABLET BY MOUTH AT BEDTIME TAKE ONE TABLET BY MOUTH AT BEDTIME SOLD: 01/07/2020 [facility] Amitriptyline Hydrochloride 25 MG Oral Tablet AMITRIPTYLINE HCL 12/08/2019 12:00:00 AM EST tablet 30 TAKE ONE TABLET BY MOUTH AT BEDTIME TAKE ONE TABLET BY MOUTH AT BEDTIME SOLD: 02/06/2020 [facility] Amitriptyline Hydrochloride 25 MG Oral Tablet Amitript yline HCl 25 MG Amitriptyline HCl 25 MG 12/08/2019 12:00:00 AM EST active 1 tablet at bedtime eCW1 ([facility]) 0.3 ML Epinephrine 1 MG/ML Auto-Injector [Epipen] EpiP en 2-Bryce 0.3 MG/0.3ML EpiPen 2-Bryce 0.3 MG/0.3ML 12/08/2019 12:00:00 AM EST active EpiPen 2-Bryce 0.3 MG/0.3ML eCW1 ([facility]) Amitriptyline Hydrochloride 25 MG Oral Tablet Amitript yline HCl 25 MG Amitriptyline HCl 25 MG 12/08/2019 12:00:00 AM EST 1.0 {tablet_at_b edtime} active Amitriptyline HCl 25 MG e CW1 ([facility]) 0.3 ML Epinephrine 1 MG/ML Auto-Injector [Epipen] EpiP en 2-Bryce 0.3 MG/0.3ML EpiPen 2-Bryce 0.3 MG/0.3ML 12/08/2019 12:00:00 AM EST active EpiPen 2-Bryce 0.3 MG/0.3ML eCW1 ([facility]) Amitriptyline Hydrochloride 25 MG Oral Tablet Amitript yline HCl 25 MG Amitriptyline HCl 25 MG 12/08/2019 12:00:00 AM EST 1.0 {tablet_at_b edtime} active Amitriptyline HCl 25 MG e CW1 ([facility]) 0.3 ML Epinephrine 1 MG/ML Auto-Injector [Epipen] EpiP en 2-Bryce 0.3 MG/0.3ML EpiPen 2-Bryce 0.3 MG/0.3ML 12/08/2019 12:00:00 AM EST active as directed eCW1 ([facility]) Amitriptyline Hydrochloride 25 MG Oral Tablet Amitript yline HCl 25 MG Amitriptyline HCl 25 MG 12/08/2019 12:00:00 AM EST 1.0 {tablet_at_b edtime} active Amitriptyline HCl 25 MG e CW1 ([facility]) Amitriptyline Hydrochloride 25 MG Oral Tablet Amitript yline HCl 25 MG Amitriptyline HCl 25 MG 12/08/2019 12:00:00 AM EST 1.0 {tablet_at_b edtime} active Amitriptyline HCl 25 MG e CW1 ([facility]) 0.3 ML Epinephrine 1 MG/ML Auto-Injector [Epipen] EpiP en 2-Bryce 0.3 MG/0.3ML EpiPen 2-Bryce 0.3 MG/0.3ML 12/08/2019 12:00:00 AM EST active EpiPen 2-Bryce 0.3 MG/0.3ML eCW1 ([facility]) Amitriptyline Hydrochloride 25 MG Oral Tablet Amitript yline HCl 25 MG Amitriptyline HCl 25 MG 12/08/2019 12:00:00 AM EST 1.0 {tablet_at_b edtime} active Amitriptyline HCl 25 MG e CW1 ([facility]) Amitriptyline Hydrochloride 25 MG Oral Tablet AMITRIPTYLINE HCL 12/08/2019 12:00:00 AM EST tablet 30 TAKE ONE TABLET BY MOUTH AT BEDTIME TAKE ONE TABLET BY MOUTH AT BEDTIME SOLD: 12/08/2019 [facility] Amitriptyline Hydrochloride 25 MG Oral Tablet Amitript yline HCl 25 MG Amitriptyline HCl 25 MG 12/08/2019 12:00:00 AM EST 1.0 {tablet_at_b edtime} active Amitriptyline HCl 25 MG e CW1 ([facility]) 0.3 ML Epinephrine 1 MG/ML Auto-Injector [Epipen] EpiP en 2-Bryce 0.3 MG/0.3ML EpiPen 2-Bryce 0.3 MG/0.3ML 12/08/2019 12:00:00 AM EST active EpiPen 2-Bryce 0.3 MG/0.3ML eCW1 ([facility]) Amitriptyline Hydrochloride 25 MG Oral Tablet AMITRIPTYLINE HCL 12/08/2019 12:00:00 AM EST tablet 30 TAKE ONE TABLET BY MOUTH AT BEDTIME TAKE ONE TABLET BY MOUTH AT BEDTIME SOLD: 04/06/2020 [facility] Amitriptyline Hydrochloride 25 MG Oral Tablet Amitript yline HCl 25 MG Amitriptyline HCl 25 MG 12/08/2019 12:00:00 AM EST 1.0 {tablet_at_b edtime} active Amitriptyline HCl 25 MG e CW1 ([facility]) Amitriptyline Hydrochloride 25 MG Oral Tablet Amitript yline HCl 25 MG Amitriptyline HCl 25 MG 12/08/2019 12:00:00 AM EST 1.0 {tablet_at_b edtime} active Amitriptyline HCl 25 MG e CW1 ([facility]) 0.3 ML Epinephrine 1 MG/ML Auto-Injector [Epipen] EpiP en 2-Bryce 0.3 MG/0.3ML EpiPen 2-Bryce 0.3 MG/0.3ML 12/08/2019 12:00:00 AM EST active EpiPen 2-Bryce 0.3 MG/0.3ML eCW1 ([facility]) Amitriptyline Hydrochloride 25 MG Oral Tablet AMITRIPTYLINE HCL 12/08/2019 12:00:00 AM EST tablet 30 TAKE ONE TABLET BY MOUTH AT BEDTIME TAKE ONE TABLET BY MOUTH AT BEDTIME SOLD: 03/07/2020 [facility] 0.3 ML Epinephrine 1 MG/ML Auto-Injector [Epipen] EpiP en 2-Bryce 0.3 MG/0.3ML EpiPen 2-Bryce 0.3 MG/0.3ML 12/08/2019 12:00:00 AM EST active EpiPen 2-Bryce 0.3 MG/0.3ML eCW1 ([facility]) 0.3 ML Epinephrine 1 MG/ML Auto-Injector [Epipen] EpiP en 2-Bryce 0.3 MG/0.3ML EpiPen 2-Bryce 0.3 MG/0.3ML 12/08/2019 12:00:00 AM EST active EpiPen 2-Bryce 0.3 MG/0.3ML eCW1 ([facility]) 81 mg 12/07/2019 12:00:00 AM EST tablet,delayed release (DR/EC) 30 TAKE ONE TABLET BY MOUTH EVERY DAY TAKE ONE TABLET BY MOUTH EVERY DAY SOLD: 12/07/2019 [facility] 81 mg 12/07/2019 12:00:00 AM EST tablet,delayed release (DR/EC) 30 TAKE ONE TABLET BY MOUTH EVERY DAY TAKE ONE TABLET BY MOUTH EVERY DAY SOLD: 01/07/2020 [facility] 81 mg 12/07/2019 12:00:00 AM EST tablet,delayed release (DR/EC) 30 TAKE ONE TABLET BY MOUTH EVERY DAY TAKE ONE TABLET BY MOUTH EVERY DAY SOLD: 02/19/2020 [facility] 75 mcg 11/16/2019 12:00:00 AM EST tablet 30 TAKE ONE TABLET BY MOUTH EVERY MORNING ON AN EMPTY STOMACH TAKE ONE TABLET BY MOUTH EVERY MORNING O N AN EMPTY STOMACH SOLD: 11/17/2019 [facility] 75 mcg 11/16/2019 12:00:00 AM EST tablet 30 TAKE ONE TABLET BY MOUTH EVERY MORNING ON AN EMPTY STOMACH TAKE ONE TABLET BY MOUTH EVERY MORNING O N AN EMPTY STOMACH SOLD: 05/25/2020 [facility] 75 mcg 11/16/2019 12:00:00 AM EST tablet 30 TAKE ONE TABLET BY MOUTH EVERY MORNING ON AN EMPTY STOMACH TAKE ONE TABLET BY MOUTH EVERY MORNING O N AN EMPTY STOMACH SOLD: 04/22/2020 [facility] 75 mcg 11/16/2019 12:00:00 AM EST tablet 30 TAKE ONE TABLET BY MOUTH EVERY MORNING ON AN EMPTY STOMACH TAKE ONE TABLET BY MOUTH EVERY MORNING O N AN EMPTY STOMACH SOLD: 06/23/2020 [facility] Prednisone 20 MG Oral Tablet PredniSONE 20 MG PredniSONE 20 MG 11/06/2019 12:00:00 AM EST active 2 tablet eCW1 ([facility]) 20 mg 11/06/2019 12:00:00 AM EST tablet 10 TAKE TWO TABLETS BY MOUTH ONCE DAILY FOR 5 DAYS TAKE TWO TABLETS BY MOUTH ONCE DAILY FOR 5 DAYS SOLD: 11/06/2019 [facility] Albuterol Sulfate HFA 108 (90 Base) MCG/ACT Albuterol Sulfate HFA 108 (90 Base) MCG/ACT 11/04/2019 12:00:00 AM EST 1.0 {puff_as_needed} active Albuterol Sulfate HFA 108 (90 Base) MCG/ACT eCW1 ([facility]) Albuterol Sulfate HFA 108 (90 Base) MCG/ACT Albuterol Sulfate HFA 108 (90 Base) MCG/ACT 11/04/2019 12:00:00 AM EST 1.0 {puff_as_needed} active Albuterol Sulfate HFA 108 (90 Base) MCG/ACT eCW1 ([facility]) Albuterol Sulfate HFA 108 (90 Base) MCG/ACT Albuterol Sulfate HFA 108 (90 Base) MCG/ACT 11/04/2019 12:00:00 AM EST 1.0 {puff_as_needed} active Albuterol Sulfate HFA 108 (90 Base) MCG/ACT eCW1 ([facility]) Doxycycline Monohydrate 100 MG Oral Tablet Doxycycline Monoh ydrate 100 MG 11/04/2019 12:00:00 AM EST active 1 tablet eCW1 ([facility]) Albuterol Sulfate HFA 108 (90 Base) MCG/ACT Albuterol Sulfate HFA 108 (90 Base) MCG/ACT 11/04/2019 12:00:00 AM EST 1.0 {puff_as_needed} active Albuterol Sulfate HFA 108 (90 Base) MCG/ACT eCW1 ([facility]) Albuterol Sulfate HFA 108 (90 Base) MCG/ACT Albuterol Sulfate HFA 108 (90 Base) MCG/ACT 11/04/2019 12:00:00 AM EST 1.0 {puff_as_needed} active Albuterol Sulfate HFA 108 (90 Base) MCG/ACT eCW1 ([facility]) Albuterol Sulfate HFA 108 (90 Base) MCG/ACT Albuterol Sulfate HFA 108 (90 Base) MCG/ACT 11/04/2019 12:00:00 AM EST 1.0 {puff_as_needed} active Albuterol Sulfate HFA 108 (90 Base) MCG/ACT eCW1 ([facility]) Albuterol Sulfate HFA 108 (90 Base) MCG/ACT Albuterol Sulfate HFA 108 (90 Base) MCG/ACT 11/04/2019 12:00:00 AM EST 1.0 {puff_as_needed} active Albuterol Sulfate HFA 108 (90 Base) MCG/ACT eCW1 ([facility]) Albuterol Sulfate HFA 108 (90 Base) MCG/ACT Albuterol Sulfate HFA 108 (90 Base) MCG/ACT 11/04/2019 12:00:00 AM EST 1.0 {puff_as_needed} active Albuterol Sulfate HFA 108 (90 Base) MCG/ACT eCW1 ([facility]) Albuterol Sulfate HFA 108 (90 Base) MCG/ACT Albuterol Sulfate HFA 108 (90 Base) MCG/ACT 11/04/2019 12:00:00 AM EST active 1 puff as needed eCW1 ([facility]) Albuterol Sulfate HFA 108 (90 Base) MCG/ACT Albuterol Sulfate HFA 108 (90 Base) MCG/ACT 11/04/2019 12:00:00 AM EST 1.0 {puff_as_needed} active Albuterol Sulfate HFA 108 (90 Base) MCG/ACT eCW1 ([facility]) Albuterol Sulfate HFA 108 (90 Base) MCG/ACT Albuterol Sulfate HFA 108 (90 Base) MCG/ACT 11/04/2019 12:00:00 AM EST active 1 puff as needed eCW1 ([facility]) Albuterol Sulfate HFA 108 (90 Base) MCG/ACT Albuterol Sulfate HFA 108 (90 Base) MCG/ACT 11/04/2019 12:00:00 AM EST 1.0 {puff_as_needed} active Albuterol Sulfate HFA 108 (90 Base) MCG/ACT eCW1 ([facility]) Albuterol Sulfate HFA 108 (90 Base) MCG/ACT Albuterol Sulfate HFA 108 (90 Base) MCG/ACT 11/04/2019 12:00:00 AM EST 1.0 {puff_as_needed} active Albuterol Sulfate HFA 108 (90 Base) MCG/ACT eCW1 ([facility]) Albuterol Sulfate HFA 108 (90 Base) MCG/ACT Albuterol Sulfate HFA 108 (90 Base) MCG/ACT 11/04/2019 12:00:00 AM EST 1.0 {puff_as_needed} active Albuterol Sulfate HFA 108 (90 Base) MCG/ACT eCW1 ([facility]) Albuterol Sulfate HFA 108 (90 Base) MCG/ACT Albuterol Sulfate HFA 108 (90 Base) MCG/ACT 11/04/2019 12:00:00 AM EST active 1 puff as needed eCW1 ([facility]) Albuterol Sulfate HFA 108 (90 Base) MCG/ACT Albuterol Sulfate HFA 108 (90 Base) MCG/ACT 11/04/2019 12:00:00 AM EST 1.0 {puff_as_needed} active Albuterol Sulfate HFA 108 (90 Base) MCG/ACT eCW1 ([facility]) 90 mcg/actuation 11/04/2019 12:00:00 AM EST HFA aerosol inha ler 18 INHALE ONE PUFF BY MOUTH EVERY 6 HOURS NEEDED INHALE ONE PUFF BY MOUTH EVERY 6 HOURS NEEDED SOLD: 11/04/2019 [facility] Albuterol Sulfate HFA 108 (90 Base) MCG/ACT Albuterol Sulfate HFA 108 (90 Base) MCG/ACT 11/04/2019 12:00:00 AM EST 1.0 {puff_as_needed} active Albuterol Sulfate HFA 108 (90 Base) MCG/ACT eCW1 ([facility]) Albuterol Sulfate HFA 108 (90 Base) MCG/ACT Albuterol Sulfate HFA 108 (90 Base) MCG/ACT 11/04/2019 12:00:00 AM EST 1.0 {puff_as_needed} active Albuterol Sulfate HFA 108 (90 Base) MCG/ACT eCW1 ([facility]) Albuterol Sulfate HFA 108 (90 Base) MCG/ACT Albuterol Sulfate HFA 108 (90 Base) MCG/ACT 11/04/2019 12:00:00 AM EST 1.0 {puff_as_needed} active Albuterol Sulfate HFA 108 (90 Base) MCG/ACT eCW1 ([facility]) Albuterol Sulfate HFA 108 (90 Base) MCG/ACT Albuterol Sulfate HFA 108 (90 Base) MCG/ACT 11/04/2019 12:00:00 AM EST active 1 puff as needed eCW1 ([facility]) Albuterol Sulfate HFA 108 (90 Base) MCG/ACT Albuterol Sulfate HFA 108 (90 Base) MCG/ACT 11/04/2019 12:00:00 AM EST active 1 puff as needed eCW1 ([facility]) Albuterol Sulfate HFA 108 (90 Base) MCG/ACT Albuterol Sulfate HFA 108 (90 Base) MCG/ACT 11/04/2019 12:00:00 AM EST active 1 puff as needed eCW1 ([facility]) Albuterol Sulfate HFA 108 (90 Base) MCG/ACT Albuterol Sulfate HFA 108 (90 Base) MCG/ACT 11/04/2019 12:00:00 AM EST 1.0 {puff_as_needed} active Albuterol Sulfate HFA 108 (90 Base) MCG/ACT eCW1 ([facility]) 100 mg 11/04/2019 12:00:00 AM EST capsule 14 TAKE ONE CAPSULE BY MOUTH TWICE A DAY FOR 7 DAYS TAKE ONE CAPSULE BY MOUTH TWICE A DAY FOR 7 DAYS SOLD: 11/04/2019 [facility] Albuterol Sulfate HFA 108 (90 Base) MCG/ACT Albuterol Sulfate HFA 108 (90 Base) MCG/ACT 11/04/2019 12:00:00 AM EST 1.0 {puff_as_needed} active Albuterol Sulfate HFA 108 (90 Base) MCG/ACT eCW1 ([facility]) Albuterol Sulfate HFA 108 (90 Base) MCG/ACT Albuterol Sulfate HFA 108 (90 Base) MCG/ACT 11/04/2019 12:00:00 AM EST 1.0 {puff_as_needed} active Albuterol Sulfate HFA 108 (90 Base) MCG/ACT eCW1 ([facility]) 75 mg 10/22/2019 12:00:00 AM EST capsule 10 TAKE ONE CAPSULE BY MOUTH TWICE A DAY FOR 5 DAYS TAKE ONE CAPSULE BY MOUTH TWICE A DAY FOR 5 DAYS SOLD: 10/22/2019 [facility] Oseltamivir 75 MG Oral Capsule [Tamiflu] Tamiflu 75 MG Tamif florian 75 MG 10/22/2019 12:00:00 AM EST active 1 capsul e eCW1 ([facility]) Codeine Phosphate 2 MG/ML / Guaifenesin 20 MG/ML Oral Solution Guaifenesin- Codeine 100-10 MG/5ML Guaifenesin-Codeine 100-10 MG/5ML 10/22/2019 12:00:00 AM EST active 5 ml dye free eCW 1 ([facility]) 10-100 mg/5 mL 10/22/2019 12:00:00 AM EST liquid 120 TAKE 5ML BY MOUTH EVERY 6 HOURS FOR 7 DAYS MAXIMUM DAILY DOSE = 20ML TAKE 5ML BY MOUTH EVERY 6 HOURS FOR 7 DAYS MAXIMUM DAILY DOSE = 20ML SOLD: 10/22/2019 [facility] Codeine Phosphate 2 MG/ML / Guaifenesin 20 MG/ML Oral Solution Guaifenesin- Codeine 100-10 MG/5ML Guaifenesin-Codeine 100-10 MG/5ML 10/22/2019 12:00:00 AM EST active 5 ml dye free eCW 1 ([facility]) 81 mg 09/12/2019 12:00:00 AM EST tablet,delayed release (DR/EC) 30 TAKE ONE TABLET BY MOUTH EVERY DAY TAKE ONE TABLET BY MOUTH EVERY DAY SOLD: 10/13/2019 [facility] 81 mg 09/12/2019 12:00:00 AM EST tablet,delayed release (DR/EC) 30 TAKE ONE TABLET BY MOUTH EVERY DAY TAKE ONE TABLET BY MOUTH EVERY DAY SOLD: 11/09/2019 [facility] Amitriptyline Hydrochloride 25 MG Oral Tablet AMITRIPTYLINE HCL 06/24/2019 12:00:00 AM EDT tablet 30 TAKE ONE TABLET BY MOUTH EVERY DAY TAKE ONE TABLET BY MOUTH EVERY DAY SOLD: 06/09/2020 [facility] 75 mcg 06/24/2019 12:00:00 AM EDT tablet 30 TAKE ONE TABLET BY MOUTH EVERY MORNING ON AN EMPTY STOMACH TAKE ONE TABLET BY MOUTH EVERY MORNING O N AN EMPTY STOMACH SOLD: 10/13/2019 [facility] Insurance Providers Payer name Policy type / Coverage type Policy ID Covered constitution party ID Covered constitution party's relationship to nunez Policy Nunez Plan Information [facility] [id number] SP [id number] [facility] O [id number] S [id number] [facility] COMM[facility] [id number] SP [id number] [facility] [id number] SP [id number] [facility] COMM[facility]AN [facility] [id number] SP [id number] ANSI-Medicaid [id number] ANSI-Medicaid [id number] ANSI-Medicaid [id number] ANSI-Medicaid [id number] ANSI-Medicaid [id number] ANSI-Medicaid [id number] ANSI-Medicaid [id number] ANSI-Medicaid [id number] ANSI-Medicaid [id number] ANSI-Medicaid [id number] ANSI-Medicaid [id number] ANSI-Medicaid [id number] ANSI-Medicaid [id number] ANSI-Medicaid [id number] ANSI-Medicaid [id number] ANSI-Medicaid [id number] MEDICAID [id number] SP [id number] ANSI-Medicaid [id number] ANSI-Medicaid [id number] ANSI-Medicaid [id number] [facility] [id number] ANSI-Medicaid [id number] ANS-Medicaid [id number] [facility]-Medicaid [id number] MEDICAID [id number] [facility] [id number] [facility] [id number] Problems, Conditions, and Diagnoses Code Display Name Description Problem Type Effective Dates Data Source(s) M54.41 [id number] Lumbago with sciatica, right side Prob susan 07/25/2020 12:00:00 AM EDT eCW1 ([facility]) M54.42 [id number] Lumbago with sciatica, left side Problem 07/25/2020 12:00:00 AM EDT eCW1 ([facility]) M54.41 [id number] Acute midline low back pain with right-si ded sciatica Problem 05/12/2020 12:00:00 AM EDT eCW1 ([facility]) N93.9 [id number] Abnormal uterine bleeding (AUB) Problem 03/16/2020 12:00:00 AM EDT eCW1 ([facility]) N93.9 [id number] Abnormal uterine and vaginal b leeding, unspecified Problem 03/16/2020 12:00:00 AM EDT eCW1 ([facility]) F41.9 [id number] Anxiety Problem 03/07/2020 12:00:00 AM ED T eCW1 ([facility]) I10 [id number] Essential hypertension Problem 12/23/2019 12 :00:00 AM EST eCW1 ([facility]) I10 [id number] Essential hypertension Problem 12/23/2019 12 :00:00 AM EST eCW1 ([facility]) N20.0 Kidney stone Kidney stone Problem 10/13/2019 12:00:00 A M EST eCW1 ([facility]) N20.0 Kidney stone Kidney stone Problem 10/13/2019 12:00:00 A M EST eCW1 ([facility]) Surgeries/Procedures Procedure Description Date Indications Data Source(s) APPLICATION MODALITY 1/> AREAS HOT/COLD PACKS 09/05/20 12:00:00 AM EST [facility] ([facility] ) THERAPEUTIC PX 1/> AREAS EACH 15 MIN EXERCISES 12:00:00 AM EST [facility] ([facility] ) MANUAL THERAPY TQS 1/> REGIONS EACH 15 MINUTES 12:00:00 AM EST [facility] ([facility] ) THERAPEUTIC PX 1/> AREAS EACH 15 MIN EXERCISES 12:00:00 AM EST [facility] ([facility] ) MANUAL THERAPY TQS 1/> REGIONS EACH 15 MINUTES 12:00:00 AM EST [facility] ([facility] ) APPLICATION MODALITY 1/> AREAS HOT/COLD PACKS 08/26/20 12:00:00 AM EST [facility] ([facility] ) THERAPEUTIC PX 1/> AREAS EACH 15 MIN EXERCISES 11/06/2 020 12:00:00 AM EST [facility] ([facility] ) MANUAL THERAPY TQS 1/> REGIONS EACH 15 MINUTES 020 12:00:00 AM EST [facility] ([facility]) Physical Therapy Eval - Low Complexity 08/24/2020 12:0 0:00 AM EST [facility] ([facility] ) PHYSICIAN TELEPHONE EVALUATION 5-10 MIN 01/21/2020 12: 00:00 AM EDT eCW1 ([facility]) PHYSICIAN TELEPHONE EVALUATION 11-20 MIN 01/13/2020 12 :00:00 AM EDT eCW1 ([facility]) Influenza A+B 10/22/2019 12:00:00 AM EST eCW1 ([facility]) Results ID Date Data Source [id number] 10/11/2020 12:00:00 AM EST [facility] Erm[facility] PINON Patient Name: HARIS [id number] [facility] Date of : 1975 2 Date of Exam: 10/11/2020SHILOH Barrera [id number]#: Fax: [phone] EXAM: MRI LUMBAR SPINE WITHOUT CONTRASTPROCEDURE INFORMATION:Exam: MR Lumbar Spine Without Contrast.Exam date and time: 10/11/2020 6:29 PM Age: 45 years oldClinical indication: Low back painTECHNIQUE: Imaging protocol: Multiplanar magnetic resonance images of thelumbar spine without intravenous contrast.COMPARISON: No relevant prior studies available.FINDINGS:Vertebrae: The lumbar vertebral bodies are normal in height andalignment.No acute fracture or dislocation is seen. Spinal epidural space:There is no evidence of epidural masses or hemorrhage. Spinal cord: Theconus medullaris is normal. The cauda equina nerve roots demonstrate nocrowding or displacement.L1-L2: There is no significant degenerative disc herniation.The spinalcanal and neural foramina are patent and without significant stenosis.L2-L3: There is no significant degenerative disc herniation.The spinalcanal and neural foramina are patent and without significant stenosis.L3-L4: There is no significant degenerative disc herniation.The spinalcanal and neural foramina are patent and without significant stenosis.L4-L5: There is no significant degenerative disc herniation.The spinalcanal and neural foramina are patent and without significant stenosis.L5-S1: There is no significant degenerative disc herniation.The spinalcanal and neural foramina are patent and without significant stenosis.Soft tissues: The prevertebral soft tissues appear normal. IMPRESSION: MRI of the lumbar spine reveals no significant degenerativedisc herniation . The spinal canal and neural foramina are patent andwithout significant stenosis.Thank you for allowing us to participate in the care of your patient.Dictated and Authenticated by: Kashmir Moe MD 10/12/2020 9:30 AMEastern Time ([place] & [place])MalloryV/Wendy you for referring SHEA SCHAEFER to our office. Electronically Signed - MALLORY 10/12/20 10:16 Name Value Range Interpretation Code Description Data Eri rce(s) Supporting Document(s) ID Date Data Source VITAMIN D 25-HYDROXY 09/07/2020 12:00:00 AM EST eCW1 ([facility]) Name Value Range Interpretation Code Description Data Eri rce(s) Supporting Document(s) 17.7 30.0-100.0 TOTAL 25(OH) VITAMIN D eC W1 ([facility]) ID Date Data Source FREE T4 & TSH PANEL 09/07/2020 12:00:00 AM EST eCW1 ([facility]) Name Value Range Interpretation Code Description Data Eri rce(s) Supporting Document(s) 0.94 0.76-1.46 FREE T4 eCW1 ([facility]) 1.850 0.358-3.740 THYROID STIMULATING HORM ONE eCW1 ([facility]) ID Date Data Source [id number] 06/24/2020 12:00:00 AM EDT [facility] ology Imaging ZI Meeks Patient Name: LIZETH STEVENSON [facility] Date of : 1975[place] [address] Date of Exam: 06/24/2020PH#: Fax: [phone] EXAM: LUMBOSACRAL SPINE (4 VIEWS)CLINICAL INFORMATION: Pain.Five views.Comparison is 05/12/2020.Vertebral body heights, interspacing and alignment are normal. There ismild osteophytic formation anteriorly at L2, L3, L4, unchanged, compatiblewith mild degenerative disc changes.Mineralization is normal. The facets are unremarkable. The pedicles areunremarkable. There is no spondylolysis or spondylolisthesis.A surgical clip is incidentally identified in the abdominal right upperquadrant.IMPRESSION:Minimal degenerative disc changes. Otherwise, negative lumbar spine. Nointerval change.ELIZABETH Tanner/Wendy you for referring SHEA STEVENSON to our office. Electronically Signed - GONZÁLEZ SAENZ MD 06/24/20 14:29 Name Value Range Interpretation Code Description Data Eri rce(s) Supporting Document(s) ID Date Data Source [id number] 06/24/2020 12:00:00 AM EDT [facility] ology Imaging ZI Meeks Patient Name: LIZETH STEVENSON [facility] Date of : 1975[place] [address] Date of Exam: 06/24/2020PH#: Fax: [phone] EXAM: CERVICAL SPINE COMPLETE XRAYCLINICAL INFORMATION: Pain, numbness and tingling.There are no comparisons.C1 through C5 are identified on the lateral views and C1 through T1 arevisualized on the swimmers lateral view.Vertebral body heights, interspacing and alignment are normal. There is nolisthesis on flexion or extension. The facets are unremarkable. Theprevertebral soft-tissues are unremarkable.There is no bony foraminal encroa chment. The odontoid view is unremarkable.IMPRESSION:Negative cervical spine plain film study.González Saenz, ELIZABETH/Acacia you for referring SHEA STEVENSON to our office. Electronically Signed - GONZÁLEZ SAENZ MD 06/24/20 14:29 Name Value Range Interpretation Code Description Data Eri rce(s) Supporting Document(s) ID Date Data Source [id number] 03/20/2020 11:00:00 AM EDT [facility] Name Value Range Interpretation Code Description Data Eri rce(s) Supporting Document(s) SARS CORONAVIRUS 2 RNA [facility] This lab was ordered by [facility] and reported by [facility]. ID Date Data Source VITAMIN B12 LEVEL 12/23/2019 12:00:00 AM EST eCW1 ([facility]) Name Value Range Interpretation Code Description Data Eri rce(s) Supporting Document(s) [id number] VITAMIN B12 LEVEL eCW1 ([facility]) ID Date Data Source Comprehensive Metabolic Profile (CMP) 12/23/2019 12:00:00 AM EST eCW1 ([facility]) Name Value Range Interpretation Code Description Data Eri rce(s) Supporting Document(s) 9 7-18 BLOOD UREA NITROGEN eCW1 ([facility]) 95 70-100 GLUCOSE, FASTING eCW1 ([facility]) 139 136-145 SODIUM LEVEL eCW1 ([facility]) 0.85 0.55-1.30 CREATININE FOR GFR eCW1 ([facility]) > 60.0 >58 GLOMERULAR FILTRATION RATE eCW 1 ([facility]) 3.9 3.5-5.1 POTASSIUM SERUM eCW1 ([facility]) 8.8 8.5-10.1 CALCIUM LEVEL eCW1 ([facility]) 104 98-107 CHLORIDE LEVEL eCW1 ([facility]) 30 21-32 CARBON DIOXIDE LEVEL eCW1 ([facility]) 18 7-37 AST/SGOT eCW1 ([facility]) 0.2 0.2-1.0 BILIRUBIN,TOTAL eCW1 ([facility]) 96 45-117 ALKALINE PHOSPHATASE eCW1 ([facility]) 28 12-78 ALT/SGPT eCW1 ([facility]) 7.5 6.4-8.2 TOTAL PROTEIN eCW1 ([facility]) 3.7 3.2-5.2 ALBUMIN eCW1 ([facility]) 0.97 1.00-1.93 ALBUMIN/GLOBULIN RATIO eCW1 ([facility]) ID Date Data Source CBC with Differential 12/23/2019 12:00:00 AM EST eCW1 ([facility]) Name Value Range Interpretation Code Description Data Eri rce(s) Supporting Document(s) 11.6 12.0-15.5 HEMOGLOBIN eCW1 ([facility]) 4.56 4.00-5.40 RED BLOOD COUNT eCW1 ([facility]) 9.4 4.0-10.0 WHITE BLOOD COUNT eCW1 ([facility]) 37.5 36.0-47.0 HEMATOCRIT eCW1 ([facility]) 25.4 27.0-33.0 MEAN CORPUSCULAR HEMOGLOB IN eCW1 ([facility]) 13.4 11.5-14.5 RED CELL DISTRIBUTION WID TH eCW1 ([facility]) 82.2 80.0-96.0 MEAN CORPUSCULAR VOLUME e CW1 ([facility]) 30.9 32.0-36.5 MEAN CORPUSCULAR HGB CONC eCW1 ([facility]) 382 150-450 PLATELET COUNT, AUTOMATED eCW1 ([facility]) 5.5 0.0-5.0 MONO % eCW1 ([facility]) 25.5 24.0-44.0 LYMPH % eCW1 ([facility]) 62.0 36.0-66.0 NEUTROPHILS % eCW1 ([facility]) 5.3 0.0-3.0 EOS % eCW1 ([facility]) 5.9 1.5-8.5 NEUTROPHILS # eCW1 ([facility]) 1.3 0.0-1.0 BASO % eCW1 ([facility]) 0.5 0.0-0.5 EOS # eCW1 ([facility]) 2.4 1.5-5.0 LYMPH # eCW1 ([facility]) 0.5 0.0-0.8 MONO # eCW1 ([facility]) 0.1 0.0-0.2 BASO # eCW1 ([facility]) ID Date Data Source CARDIAC MARKER PANEL 12/23/2019 12:00:00 AM EST eCW1 ([facility]) Name Value Range Interpretation Code Description Data Eri rce(s) Supporting Document(s) 64 26-192 CPK CREATINE PHOSPHOKINASE eCW 1 ([facility]) 1.56 < OR =4 MB/CK RELATIVE INDEX eCW1 ([facility]) < 0.02 < 0.10 TROPONIN I eCW1 ([facility]) < 1.0 <3.6 CK-MB VALUE MASS eCW1 ([facility]) ID Date Data Source RESPIRATORY PANEL 10/22/2019 12:00:00 AM EST eCW1 ([facility]) Name Value Range Interpretation Code Description Data Eri rce(s) Supporting Document(s) This respiratory PCR panel detects Influenza A H1, H3 and RESPIRATORY PANEL eCW1 ([facility]) Procedure Social History Code Duration Value Status Description Data Source(s ) Smoking 09/07/2020 12:00:00 AM EST Never Smoker completed Never S moker eCW1 ([facility]) Smoking 09/07/2020 12:00:00 AM EST Never Smoker completed Never S moker eCW1 ([facility]) Smoking 09/07/2020 12:00:00 AM EST Never Smoker completed Never S moker eCW1 ([facility]) Smoking 09/07/2020 12:00:00 AM EST Never Smoker completed Never S moker eCW1 ([facility]) Smoking 05/12/2020 12:00:00 AM EDT Never Smoker completed Never S moker eCW1 ([facility]) Smoking 05/12/2020 12:00:00 AM EDT Never Smoker completed Never S moker eCW1 ([facility]) Smoking 05/12/2020 12:00:00 AM EDT Never Smoker completed Never S moker eCW1 ([facility]) Smoking 05/12/2020 12:00:00 AM EDT Never Smoker completed Never S moker eCW1 ([facility]) Smoking 05/12/2020 12:00:00 AM EDT Never Smoker completed Never S moker eCW1 ([facility]) Smoking 05/12/2020 12:00:00 AM EDT Never Smoker completed Never S moker eCW1 ([facility]) Smoking 05/12/2020 12:00:00 AM EDT Never Smoker completed Never S moker eCW1 ([facility]) Smoking 05/12/2020 12:00:00 AM EDT Never Smoker completed Never S moker eCW1 ([facility]) Smoking 05/04/2020 12:00:00 AM EDT Never Smoker completed Never S moker eCW1 ([facility]) Smoking 04/06/2020 12:00:00 AM EDT Never Smoker completed Never S moker eCW1 ([facility]) Smoking 03/15/2020 12:00:00 AM EDT Never Smoker completed Never S moker eCW1 ([facility]) Smoking 03/15/2020 12:00:00 AM EDT Never Smoker completed Never S moker eCW1 ([facility]) Smoking 03/15/2020 12:00:00 AM EDT Never Smoker completed Never S moker eCW1 ([facility]) Smoking 03/15/2020 12:00:00 AM EDT Never Smoker completed Never S moker eCW1 ([facility]) Smoking 03/15/2020 12:00:00 AM EDT Never Smoker completed Never S moker eCW1 ([facility]) Vital Signs ID Date Data Source UNK Name Value Range Interpretation Code Description Data Source(s) Body temperature 96.8 [degF] 96.8 [degF] MEDENT ([facility]) Diastolic blood pressure 60 mm[Hg] 60 mm[Hg] eCW1 ([facility]) Systolic blood pressure 114 mm[Hg] 114 mm[Hg] e CW1 ([facility]) Body temperature 97.4 [degF] 97.4 [degF] eCW1 ( [facility]) Respiratory rate 16 /min 16 /min eCW1 ([facility]) Heart rate 103 /min 103 /min eCW1 ([facility]) Body mass index (BMI) [Ratio] 33.00 kg/m2 33.00 kg/m2 W1 ([facility]) Body height 60 [in_i] 60 [in_i] eCW1 ([facility]) Body weight 169 [lb_av] 169 [lb_av] eCW1 ([facility]) Body mass index (BMI) [Ratio] 32.0 kg/m2 32.0 k g/m2 MEDENT ([facility]) Body weight 164.12 [lb_av] 164.12 [lb_av] MEDEN T ([facility]) Body height 60 [in_i] 60 [in_i] MEDENT ([facility]) 5'0" Body temperature 97.1 [degF] 97.1 [degF] MEDENT ([facility]) Diastolic blood pressure 68 mm[Hg] 68 mm[Hg] eCW1 ([facility]) Systolic blood pressure 118 mm[Hg] 118 mm[Hg] e CW1 ([facility]) Body temperature 97.9 [degF] 97.9 [degF] eCW1 ( [facility]) Respiratory rate 18 /min 18 /min eCW1 ([facility]) Heart rate 114 /min 114 /min eCW1 ([facility]) Body mass index (BMI) [Ratio] 32.26 kg/m2 32.26 kg/m2 eCW1 ([facility]) Body height 60 [in_i] 60 [in_i] eCW1 ([facility]) Body weight 165.2 [lb_av] 165.2 [lb_av] eCW1 ([facility]) Diastolic blood pressure 62 mm[Hg] 62 mm[Hg] eCW1 ([facility]) Systolic blood pressure 122 mm[Hg] 122 mm[Hg] e CW1 ([facility]) Body mass index (BMI) [Ratio] 32.06 kg/m2 32.06 kg/m2 eCW1 ([facility]) Body height 60 [in_i] 60 [in_i] eCW1 ([facility]) Body weight 164.2 [lb_av] 164.2 [lb_av] eCW1 ([facility]) Diastolic blood pressure 82 mm[Hg] 82 mm[Hg] eCW1 ([facility]) Systolic blood pressure 128 mm[Hg] 128 mm[Hg] e CW1 ([facility]) Body temperature 97.4 [degF] 97.4 [degF] eCW1 ( [facility]) Body mass index (BMI) [Ratio] 31.44 kg/m2 31.44 kg/m2 eCW1 ([facility]) Body height 60 [in_i] 60 [in_i] eCW1 ([facility]) Body weight 161 [lb_av] 161 [lb_av] eCW1 ([facility]) Diastolic blood pressure 70 mm[Hg] 70 mm[Hg] eCW1 ([facility]) Systolic blood pressure 118 mm[Hg] 118 mm[Hg] e CW1 ([facility]) Body mass index (BMI) [Ratio] 32.34 kg/m2 32.34 kg/m2 eCW1 ([facility]) Body height 60 [in_i] 60 [in_i] eCW1 ([facility]) Body weight 165.6 [lb_av] 165.6 [lb_av] eCW1 ([facility]) Diastolic blood pressure 70 mm[Hg] 70 mm[Hg] eCW1 ([facility]) Systolic blood pressure 122 mm[Hg] 122 mm[Hg] e CW1 ([facility]) Body temperature 96 [degF] 96 [degF] eCW1 ([facility]) Respiratory rate 18 /min 18 /min eCW1 ([facility]) Heart rate 110 /min 110 /min eCW1 ([facility]) Body mass index (BMI) [Ratio] 32.53 kg/m2 32.53 kg/m2 eCW1 ([facility]) Body height 60 [in_i] 60 [in_i] eCW1 ([facility]) Body weight 166.6 [lb_av] 166.6 [lb_av] eCW1 ([facility]) Diastolic blood pressure 78 mm[Hg] 78 mm[Hg] eCW1 ([facility]) Systolic blood pressure 122 mm[Hg] 122 mm[Hg] e CW1 ([facility]) Body temperature 95.6 [degF] 95.6 [degF] eCW1 ( [facility]) Respiratory rate 18 /min 18 /min eCW1 ([facility]) Heart rate 113 /min 113 /min eCW1 ([facility]) Body mass index (BMI) [Ratio] 32.34 kg/m2 32.34 kg/m2 eCW1 ([facility]) Body height 60 [in_us] 60 [in_us] eCW1 ([facility]) Body weight Measured 165.6 [lb_av] 165.6 [lb_av ] eCW1 ([facility]) Diastolic blood pressure 92 mm[Hg] 92 mm[Hg] eCW1 ([facility]) Systolic blood pressure 148 mm[Hg] 148 mm[Hg] e CW1 ([facility]) Body temperature 98.7 [degF] 98.7 [degF] eCW1 ( [facility]) Respiratory rate 17 /min 17 /min eCW1 ([facility]) Heart rate 104 /min 104 /min eCW1 ([facility]) Body mass index (BMI) [Ratio] 31.95 kg/m2 31.95 kg/m2 W1 ([facility]) Body height 60 [in_us] 60 [in_us] eCW1 ([facility]) Body weight Measured 163.6 [lb_av] 163.6 [lb_av ] eCW1 ([facility]) Diastolic blood pressure 78 mm[Hg] 78 mm[Hg] eCW1 ([facility]) Systolic blood pressure 128 mm[Hg] 128 mm[Hg] e CW1 ([facility]) Body temperature 96.9 [degF] 96.9 [degF] eCW1 ( [facility]) Respiratory rate 18 /min 18 /min eCW1 ([facility]) Heart rate 106 /min 106 /min eCW1 ([facility]) Body mass index (BMI) [Ratio] 31.83 kg/m2 31.83 kg/m2 eCW1 ([facility]) Body height 60 [in_us] 60 [in_us] eCW1 ([facility]) Body weight Measured 163.0 [lb_av] 163.0 [lb_av ] eCW1 ([facility]) Diastolic blood pressure 80 mm[Hg] 80 mm[Hg] eCW1 ([facility]) Systolic blood pressure 130 mm[Hg] 130 mm[Hg] e CW1 ([facility]) Body temperature 96.7 [degF] 96.7 [degF] eCW1 ( [facility]) Respiratory rate 18 /min 18 /min eCW1 ([facility]) Heart rate 96 /min 96 /min eCW1 ([facility]) Body mass index (BMI) [Ratio] 31.64 kg/m2 31.64 kg/m2 eCW1 ([facility]) Body height 60 [in_us] 60 [in_us] eCW1 ([facility]) Body weight Measured 162.0 [lb_av] 162.0 [lb_av ] eCW1 ([facility]) Diastolic blood pressure 72 mm[Hg] 72 mm[Hg] eCW1 ([facility]) Systolic blood pressure 118 mm[Hg] 118 mm[Hg] e CW1 ([facility]) Body temperature 98.0 [degF] 98.0 [degF] eCW1 ( [facility]) Respiratory rate 20 /min 20 /min eCW1 ([facility]) Heart rate 98 /min 98 /min eCW1 ([facility]) Body mass index (BMI) [Ratio] 31.56 kg/m2 31.56 kg/m2 eCW1 ([facility]) Body height 60 [in_us] 60 [in_us] eCW1 ([facility]) Body weight Measured 161.6 [lb_av] 161.6 [lb_av ] eCW1 ([facility]) Diastolic blood pressure 86 mm[Hg] 86 mm[Hg] eCW1 ([facility]) Systolic blood pressure 132 mm[Hg] 132 mm[Hg] e CW1 ([facility]) Body temperature 97.6 [degF] 97.6 [degF] eCW1 ( [facility]) Respiratory rate 18 /min 18 /min eCW1 ([facility]) Heart rate 93 /min 93 /min eCW1 ([facility]) Body mass index (BMI) [Ratio] 31.44 kg/m2 31.44 kg/m2 eCW1 ([facility]) Body height 60 [in_us] 60 [in_us] eCW1 ([facility]) Body weight Measured 161 [lb_av] 161 [lb_av] eC W1 ([facility]) Patient Treatment Plan of Care Planned Activity Planned Date Details Description Data Source (s) Acetaminophen 300 MG / Codeine Phosphate 30 MG Oral Tablet [Tylenol with Codeine] 04/06/2020 12:00:00 AM EDT eCW1 ([facility]) Ondansetron 4 MG Oral Tablet [Zofran] 04/06/2020 12:00:00 AM EDT eCW1 ([facility]) Losartan Potassium 50 MG Oral Tablet 01/07/2020 12:00:00 AM EDT eCW1 ([facility]) Losartan Potassium 50 MG Oral Tablet 01/07/2020 12:00:00 AM EDT eCW1 ([facility]) Losartan Potassium 50 MG Oral Tablet 01/07/2020 12:00:00 AM EDT eCW1 ([facility]) Losartan Potassium 50 MG Oral Tablet 01/07/2020 12:00:00 AM EDT eCW1 ([facility]) Losartan Potassium 25 MG Oral Tablet 01/07/2020 12:00:00 AM EDT eCW1 ([facility]) Losartan Potassium 25 MG Oral Tablet 01/07/2020 12:00:00 AM EDT eCW1 ([facility]) Lisinopril 2.5 MG Oral Tablet 12/29/2019 12:00:00 AM EDT eCW1 ([facility]) Lisinopril 2.5 MG Oral Tablet 12/23/2019 12:00:00 AM EST eCW1 ([facility]) Amitriptyline Hydrochloride 25 MG Oral Tablet 12/08/2019 12:00:00 A M EST eCW1 ([facility]) 0.3 ML Epinephrine 1 MG/ML Auto-Injector [Epipen] 12/08/2019 12: 00:00 AM EST eCW1 ([facility]) Amitriptyline Hydrochloride 25 MG Oral Tablet 12/08/2019 12:00:00 A M EST eCW1 ([facility]) Prednisone 20 MG Oral Tablet 11/06/2019 12:00:00 AM EST eCW1 ([facility]) Albuterol Sulfate HFA 108 (90 Base) MCG/ACT 11/04/2019 12:00:00 AM EST eCW1 ([facility]) Doxycycline Monohydrate 100 MG Oral Tablet 11/04/2019 12:00:[address] eCW1 ([facility]) Oseltamivir 75 MG Oral Capsule [Tamiflu] 10/22/2019 12:00:00 AM EST eCW1 ([facility]) Codeine Phosphate 2 MG/ML / Guaifenesin 20 MG/ML Oral Solution 10/22/2019 12:00:00 AM EST eCW1 ([facility])
--- OUTSIDE RECORDS SUMMARY | 2020-12-08 14:19 | CCD | Continuity of Care Document ---
Author Author Molly DOHERTY PA Organization Unknown Address [address] [place] [address] Phone [phone] Care Team Providers Care [employer] Name Role Phone Africa Perez PA-C Unavailable Gay Schmitz AUTM [phone] Problems Description No Information Available Social History Type Date Description Comments Sex Unknown Allergies, Adverse Reactions, Alerts Description No Information Available Medications Active Medications SIG Qnty Indications Ordering Provide r Date Duloxetine HCL 20mg Caps DR Roberts 1 by mouth every morning x2 weeks [...] Available Procedures Date Code Description Status 09/05/2020 74885 Manual Therapy Each 15 Minutes C ompleted 09/05/2020 17110 Therapeutic Procedure, Each 15 M inutes Completed 09/05/2020 11464 Hot Or Cold Packs Completed 09/01/2020 52912 Manual Therapy Each 15 Minutes C ompleted 09/01/2020 94342 Therapeutic Procedure, Each 15 M inutes Completed 08/26/2020 75794 Manual Therapy Each 15 Minutes C ompleted 08/26/2020 80507 Therapeutic Procedure, Each 15 M inutes Completed 08/26/2020 05224 Hot Or Cold Packs Completed 08/24/2020 35274 Physical Therapy Eval - Low Comp lexity [...] without myelopathy or radiculopathy, lumbosacral region Ermias M Roxanne, PA 09/09/2020 M51.37 Other intervertebral disc degene [...] myelopathy or radiculopathy, cervical region Danamarie Ortolano, HUMAN PERFORMANCE PROFESSOR 09/01/2020 M50.320 Other cervical disc degeneration, mid-cervical region, unspecified level Danamarie Ortolano, HUMAN PERFORMANCE PROFESSOR 09/01/2020 M47.817 Spondylosis without myelopathy or radiculopathy, lumbosacral region Danamarie Ortolano, HUMAN PERFORMANCE PROFESSOR 09/01/2020 M51.37 Other intervertebral disc degene ration, lumbosacral region Danamarie Ortolano, HUMAN PERFORMANCE PROFESSOR 08/26/2020 M47.812 Spondylosis without myelopathy or radiculopathy, [...] lumbosacral region ZI Palomino Plan of Treatment Future Appointment(s):* 09/13/2020 2:30 pm - Latasha Rao HUMAN PERFORMANCE PROFESSOR at Physical Therapy 09/09/2020 - [facility]* M47.812 Spondylosis without [...] * Follow up:* after MRI results with [facility] * M51.37 Other intervertebral disc degeneration, lumbosacral region Functional Status Description No Information Available Mental Status Description No Information Available Referrals Refer to Reason for Referral Status Appt Date Jorge Borges MD authorization for physical t herapy evaluation [phone] Cervical/Lumbar Spine. Patient Coming here. Passed to PT Dept. AC Created [address] [place] [address], [address] [place] [id number] [phone] Jorge Borges MD physical therapy authorizati on cervical/lumbar. Passed to physical therapy dept. ac Created [address] [facility], [facility] [address] [place] [id number] [phone]
--- OUTSIDE RECORDS SUMMARY | 2020-12-08 14:19 | CCD | Continuity of Care Document ---
Author Author Molly VÁSQUEZ [facility] Organization Unknown Address [address] [place] [address] Phone [phone] Care Team Providers Care Truss Builder Name Role Phone Africa Perez PA-C [employer] Unavailable Gay Schmitz AUTM [phone] Problems Description No Information Available Social History [...] Available Procedures Date Code Description Status 09/05/2020 38528 Manual Therapy Each 15 Minutes C ompleted 09/05/2020 11773 Therapeutic Procedure, Each 15 M inutes Completed 09/05/2020 26144 Hot Or Cold Packs Completed 09/01/2020 06471 Manual Therapy Each 15 Minutes C ompleted 09/01/2020 32258 Therapeutic Procedure, Each 15 M inutes Completed 08/26/2020 89000 Manual Therapy Each 15 Minutes C ompleted 08/26/2020 48581 Therapeutic Procedure, Each 15 M inutes Completed 08/26/2020 34451 Hot Or Cold Packs Completed 08/24/2020 55720 Physical Therapy Eval - Low Comp lexity Completed Medical Devices Description No Information Available Encounters Type Date Location Provider Dx Diagnosis Office Visit 09/09/2020 11:00a [facility] M47.812 Spondylosis w/o myelopathy or radiculopathy, [...] intervertebral disc degene ration, lumbosacral region Ermias M Roxanne, PA 09/05/2020 M47.812 Spondylosis without myelopathy [...] myelopathy or radiculopathy, cervical region Danamarie Ortolano, COMPLIANCE TESTING ANALYST 09/01/2020 M50.320 Other cervical disc degeneration, mid-cervical region, unspecified level Danamarie Ortolano, COMPLIANCE TESTING ANALYST 09/01/2020 M47.817 Spondylosis without myelopathy or radiculopathy, lumbosacral region Danamarie Ortolano, COMPLIANCE TESTING ANALYST 09/01/2020 M51.37 Other intervertebral disc degene ration, lumbosacral region Danamarie Ortolano, COMPLIANCE TESTING ANALYST 08/26/2020 M47.812 Spondylosis without myelopathy or radiculopathy, [...] * Follow up:* after MRI results with [facility] * M51.37 Other intervertebral disc degeneration, lumbosacral region Functional Status Description No Information Available Mental Status Description No Information Available Referrals Refer to Dr Reason for Referral Status Appt Date Jorge Borges MD authorization for physical t herapy evaluation [phone] Cervical/Lumbar Spine. Patient Coming here. Passed to PT Dept. AC Created [address] [place] [address], [address] [place] [address] [phone] Jorge Borges MD physical therapy authorizati on cervical/lumbar. Passed to physical therapy dept. ac Created [address] [facility], [address] [place] [address] [phone]
[2020-12-08] MEDS ORDERED: METH-1164 (14:21)
[2020-12-08] MEDS ORDERED: DULO1CAP4 (14:21)
[2020-12-08] MEDS ORDERED: LOSA25TA14 (14:21)
--- OUTSIDE RECORDS SUMMARY | 2020-12-08 15:24 | CCD ---
Author Author [facility] Organization [facility] Address Unknown Phone Unavailable Care Team Providers Care Scrap Collector Name Role Phone BESSY, M ERMIAS PA [...] is protected by Article 27-F of the [facility] Public Health law. If you continue you may have access to information: Regarding HIV / AIDS; Provided by facilities licensed or operated by the [facility] Office of Mental Health; or Provided by the [facility] Office for People With Developmental Disabilities. If such information is present, then the following [facility] mandated warning applies: This information has [...] law may result in a fine or prison sentence or both. A general authorization for the release of medical or other information is NOT sufficient authorization for further disc losure. Allergies and Adverse Reactions Type Description Substance Reaction Status Data Source(s ) Drug allergy Cipro Ciprofloxacin Rash Active eCW1 ([facility]) Drug allergy Cleocin Clindamycin Rash Active eCW1 ([facility]) Drug allergy Levaquin Drug allergy Rash Active eCW1 ([facility]) Drug allergy Alavert Loratadine Rash Active eCW1 ([facility]) Drug allergy Imitrex Sumatriptan Hives Active eCW1 ([facility]) Drug allergy Morphine Sulfate Morphine Rash Active eCW1 ( [facility]) Drug allergy Ultram Tramadol Rash Active eCW1 ([facility]) Drug allergy Percocet acetaminophen / oxycodone Rash Active eCW1 ([facility]) Nubain Nubain Nubain Rash Active eCW1 ([facility]) Rocephin Rocephin Rocephin Hives Active eCW1 ([facility]) Septra Septra Septra Rash Active eCW1 ([facility]) dark chocolate dark chocolate dark chocolate Rash Active eC W1 ([facility]) Vicodin Vicodin Vicodin Rash Active eCW1 ([facility]) cod fish cod fish cod fish Rash Active eCW1 ([facility]) Biaxin Biaxin Clarithromycin 250 MG Oral Tablet [Biaxin] Anap hylaxis Active eCW1 ([facility]) xanaplex xanaplex xanaplex Hives Active eCW1 ([facility]) pineapple pineapple pineapple Rash Active eCW1 ([facility]) shrimp shrimp shrimp Rash Active eCW1 ([facility]) Darvocet-N 50 Darvocet-N 50 Darvocet-N 50 Rash Active eCW1 ([facility]) Nubain Nubain Nubain Rash Active eCW1 ([facility]) Rocephin Rocephin Rocephin Hives Active eCW1 ([facility]) Septra Septra Septra Rash Active eCW1 ([facility]) dark chocolate dark chocolate dark chocolate Rash Active eC W1 ([facility]) Vicodin Vicodin Vicodin Rash Active eCW1 ([facility]) cod fish cod fish cod fish Rash Active eCW1 ([facility]) Biaxin Biaxin Clarithromycin 250 MG Oral Tablet [Biaxin] Anap hylaxis Active eCW1 ([facility]) xanaplex xanaplex xanaplex Hives Active eCW1 ([facility]) pineapple pineapple pineapple Rash Active eCW1 ([facility]) shrimp shrimp shrimp Rash Active eCW1 ([facility]) Darvocet-N 50 Darvocet-N 50 Darvocet-N 50 Rash Active eCW1 ([facility]) Nubain Nubain Nubain Rash Active eCW1 ([facility]) Rocephin Rocephin Rocephin Hives Active eCW1 ([facility]) Septra Septra Septra Rash Active eCW1 ([facility]) dark chocolate dark chocolate dark chocolate Rash Active eC W1 ([facility]) Vicodin Vicodin Vicodin Rash Active eCW1 ([facility]) cod fish cod fish cod fish Rash Active eCW1 ([facility]) Biaxin Biaxin Clarithromycin 250 MG Oral Tablet [Biaxin] Anap hylaxis Active eCW1 ([facility]) xanaplex xanaplex xanaplex Hives Active eCW1 ([facility]) pineapple pineapple pineapple Rash Active eCW1 ([facility]) shrimp shrimp shrimp Rash Active eCW1 ([facility]) Darvocet-N 50 Darvocet-N 50 Darvocet-N 50 Rash Active eCW1 ([facility]) Levaquin Levaquin Levofloxacin 750 MG Oral Tablet [Levaquin] Rash Active eCW1 ([facility]) James Gonzalezbain Rash Active eCW1 ([facility]) Rocephin Rocephin Rocephin Hives Active eCW1 ([facility]) Sept Septra Rash Active eCW1 ([facility]) dark chocolate dark chocolate dark chocolate Rash Active eC W1 ([facility]) Vicodin Vicodin Vicodin Rash Active eCW1 ([facility]) cod fish cod fish cod fish Rash Active eCW1 ([facility]) Biaxin Biaxin Clarithromycin 250 MG Oral Tablet [Biaxin] Anap hylaxis Active eCW1 ([facility]) xanaplex xanaplex xanaplex Hives Active eCW1 ([facility]) pineapple pineapple pineapple Rash Active eCW1 ([facility]) shrimp shrimp shrimp Rash Active eCW1 ([facility]) Darvocet-N 50 Darvocet-N 50 Darvocet-N 50 Rash Active eCW1 ([facility]) Nubain Nubain Nubain Rash Active eCW1 ([facility]) Rocephin Rocephin Rocephin Hives Active eCW1 ([facility]) Septra Rash Active eCW1 ([facility]) dark chocolate dark chocolate dark chocolate Rash Active eC W1 ([facility]) Vicodin Vicodin Vicodin Rash Active eCW1 ([facility]) cod fish cod fish cod fish Rash Active eCW1 ([facility]) Biaxin Biaxin Clarithromycin 250 MG Oral Tablet [Biaxin] Anap hylaxis Active eCW1 ([facility]) xanaplex xanaplex xanaplex Hives Active eCW1 ([facility]) pineapple pineapple pineapple Rash Active eCW1 ([facility]) shrimp shrimp shrimp Rash Active eCW1 ([facility]) Darvocet-N 50 Darvocet-N 50 Darvocet-N 50 Rash Active eCW1 ([facility]) Nubain Nubain Nubain Rash Active eCW1 ([facility]) Rocephin Rocephin Rocephin Hives Active eCW1 ([facility]) Septra Rash Active eCW1 ([facility]) dark chocolate dark chocolate dark chocolate Rash Active eC W1 ([facility]) Vicodin Vicodin Vicodin Rash Active eCW1 ([facility]) cod fish cod fish cod fish Rash Active eCW1 ([facility]) Biaxin Biaxin Clarithromycin 250 MG Oral Tablet [Biaxin] Anap hylaxis Active eCW1 ([facility]) xanaplex xanaplex xanaplex Hives Active eCW1 ([facility]) pineapple pineapple pineapple Rash Active eCW1 ([facility]) shrimp shrimp shrimp Rash Active eCW1 ([facility]) Darvocet-N 50 Darvocet-N 50 Darvocet-N 50 Rash Active eCW1 ([facility]) Nubain Nubain Nubain Rash Active eCW1 ([facility]) Rocephin Rocephin Rocephin Hives Active eCW1 ([facility]) Septra Septra Septra Rash Active eCW1 ([facility]) dark chocolate dark chocolate dark chocolate Rash Active eC W1 ([facility]) Vicodin Vicodin Vicodin Rash Active eCW1 ([facility]) cod fish cod fish cod fish Rash Active eCW1 ([facility]) Biaxin Biaxin Clarithromycin 250 MG Oral Tablet [Biaxin] Anap hylaxis Active eCW1 ([facility]) xanaplex xanaplex xanaplex Hives Active eCW1 ([facility]) pineapple pineapple pineapple Rash Active eCW1 ([facility]) shrimp shrimp shrimp Rash Active eCW1 ([facility]) Darvocet-N 50 Darvocet-N 50 Darvocet-N 50 Rash Active eCW1 ([facility]) Encounters Encounter Providers Location Date Indications Data Source(s ) Unknown [address] [facility] [address] 11/24/2020 12:00:00 AM EST eCW1 ([facility]) Unknown [address] [facility] [place] [address] 11/24/2020 12:00:00 AM EST eCW1 ([facility]) Unknown [address] [facility] [place] [address] 11/24/2020 12:00:00 AM EST eCW1 ([facility]) Outpatient Attender: ERMIAS PINON Physical Therapy 03/2021 02:00:00 PM EST MEDENT ([facility]) Outpatient Attender: ERMIAS PINON Physical Therapy 08/22 10:00:00 AM EST MED[facility] ([facility]) [place] [address] [facility] [address] 09/07/2020 12:00:00 AM EST eCW1 ([facility]) [place] [address] [facility] [address] 09/04/2020 12:00:00 AM EST eCW1 ([facility]) OFFICE OUTPATIENT NEW 30 MINUTES Attender: ERMIAS PINON Phys ical Therapy 07/29/2020 09:30:00 AM EDT MEDENT ([facility]) [place] [address] [facility] [address] 07/22/2020 12:00:00 AM EDT eCW1 ([facility]) [facility] [address] [facility] [address] 07/15/2020 12:00:00 AM EDT eCW1 ([facility]) [place] [address] [facility] [address] 07/12/2020 12:00:00 AM EDT eCW1 ([facility]) [place] [address] [facility] [address] 07/12/2020 12:00:00 AM EDT eCW1 ([facility]) [place] [address] [facility] [address] 07/12/2020 12:00:00 AM EDT eCW1 ([facility]) Outpatient [address] [facility] [address] 05/12/2020 12:00:00 AM EDT eCW1 ([facility]) [place] [address] [facility] [address] 05/11/2020 12:00:00 AM EDT eCW1 ([facility]) (WC PO) [facility] Post Op [address] [place] [address] 05/06/2020 12:00:00 AM EDT eCW1 ([facility]) [place] [address] [facility] [address] 04/07/2020 12:00:00 AM EDT [facility] [address] [facility] [place] [address] 04/06/2020 12:00:00 AM EDT eCW1 [facility] [place] [address] [facility] [address] 04/06/2020 12:00:00 AM EDT [facility] [place] [address] [facility] [address] 03/31/2020 12:00:00 AM EDT eCW1 [facility]) [place] [address] [facility] [address] 03/31/2020 12:00:00 AM EDT eCW1 ([facility] [place] [address] [facility] [address] 03/30/2020 12:00:00 AM EDT eCW1 [facility]) [facility] [address] [place] [address] 03/28/2020 12:00:00 AM EDT eCW1 ([facility]) [facility] [address] [place] [address] 03/23/2020 12:00:00 AM EDT eCW1 ([facility]) Outpatient [address] [facility] [address] 03/15/2020 12:00:00 AM EDT eCW1 [facility]) Outpatient [address] [facility] [place] [address] 03/07/2020 12:00:00 AM EDT eCW1 [facility]) [facility] [address] [place] [address] 03/04/2020 12:00:00 AM EDT eCW1 ([facility]) [facility] [address] [place] [address] 03/03/2020 12:00:00 AM EDT eCW1 ([facility]) [facility] [address] [facility] [address] 02/29/2020 12:00:00 AM EDT eCW1 [facility]) [facility] [address] [facility] [address] 02/28/2020 12:00:00 AM EDT eCW1 ([facility]) [facility] [address] [facility] [address] 02/19/2020 12:00:00 AM EDT eCW1 ([facility]) [facility] [address] [facility] [address] 02/17/2020 12:00:00 AM EDT eCW1 ([facility]) Outpatient 02/05/2020 05:13:00 AM EDT [facility] [address] [place] [address] 01/26/2020 12:00:00 AM EDT eCW1 ([facility]) [facility] [address] [facility] [address] 01/21/2020 12:00:00 AM EDT eCW1 [facility] [address] [facility] [address] 01/20/2020 12:00:00 AM EDT eCW1 ([facility]) [facility] Urology [address] [facility] [address] 01/13/2020 12:00:00 AM EDT eCW1 ([facility]) [facility] [address] [facility] [address] 01/07/2020 12:00:00 AM EDT eCW1 [facility] [address] [facility] [address] 01/07/2020 12:00:00 AM EDT eCW1 ([facility] [address] [place] [address] 01/04/2020 12:00:00 AM EDT eCW1 ([facility]) [facility] [address] [place] [address], [place] [address] 01/04/2020 12:00:00 AM EDT eCW1 [facility]) [facility] [address] [place] [address], [place] [address] 12/28/2019 12:00:00 AM EDT eCW1 ([facility]) [facility] [address] [place] [address] [place] [address] 12/23/2019 12:00:00 AM EST eCW1 ([facility]) [facility] [address] [place] [address], [place] [address] 12/22/2019 12:00:00 AM EST eCW1 ([facility]) [facility] [address] [place] [address], [place] [address] 12/18/2019 12:00:00 AM EST eCW1 ([facility]) [facility] [address] [place] [address] 12/14/2019 12:00:00 AM EST eCW1 ([facility]) [address] [address] 12/08/2019 12:00:00 AM EST eCW1 ([facility] [address] [address] 11/26/2019 12:00:00 AM EST eCW1 ([facility] [address] [address] 11/20/2019 12:00:00 AM EST eCW1 ([facility]) [facility] [address] [place] [address], [place] [address] 11/13/2019 12:00:00 AM EST eCW1 ([facility]) [facility] [address] [place] [address] 11/06/2019 12:00:00 AM EST eCW1 ([facility]) [facility] [address] [place] [address], [place] [address] 11/06/2019 12:00:00 AM EST eCW1 ([facility]) [facility] [address] [place] [address], [place] [address] 11/04/2019 12:00:00 AM EST eCW1 ([facility]) [address] [address] 11/04/2019 12:00:00 AM EST eCW1 ([facility]) Outpatient 10/30/2019 12:46:00 PM EST [facility] [address] [address] 10/23/2019 12:00:00 AM EST eCW1 ([facility]) [address] [address] 10/22/2019 12:00:00 AM EST eCW1 ([facility]) [address] [address] 10/22/2019 12:00:00 AM EST eCW1 ([facility]) [facility] [address] [place] [address] 10/22/2019 12:00:00 AM EST eCW1 ([facility]) [facility] Urology [address] [place] [address], [place] [address] 10/13/2019 12:00:00 AM EST eCW1 ([facility]) Medications Medication Brand Name Start Date Product [...] 07/29/2020 12:00:00 AM EDT ORAL completed MEDENT ([facility]) 100 mg 07/29/2020 12:00:00 AM EDT capsule [...] Tylenol with Codeine #3 300-30 MG eCW1 ([facility]) Ondansetron 4 MG Oral Tablet [Zofran] Zofran 4 MG Zofran 4 M G 04/06/2020 12:00:00 AM EDT 1.0 {tablet} active Zo terry 4 MG eCW1 ([facility]) 300-30 mg 04/06/2020 12:00:00 AM EDT tablet [...] wit h Codeine #3 300-30 MG eCW1 ([facility]) Tylenol with Codeine #3 300-30 MG UNK 04/06/2020 12:00:00 AM EDT 1.0 {tablet_as_needed} suspended Tylenol wit h Codeine #3 300-30 MG eCW1 ([facility]) Ondansetron 4 MG Oral Tablet [Zofran] Zofran 4 MG Zofran 4 M G 04/06/2020 12:00:00 AM EDT 1.0 {tablet} suspended Zofran 4 MG eCW1 ([facility]) Ondansetron 4 MG Oral Tablet [Zofran] Zofran 4 MG Zofran 4 M G 04/06/2020 12:00:00 AM EDT 1.0 {tablet} suspended Zofran 4 MG eCW1 ([facility]) Tylenol with Codeine #3 300-30 MG UNK 04/06/2020 12:00:00 AM EDT 1.0 {tablet_as_needed} suspended Tylenol wit h Codeine #3 300-30 MG eCW1 ([facility]) Ondansetron 4 MG Oral Tablet [Zofran] Zofran 4 MG Zofran 4 M G 04/06/2020 12:00:00 AM EDT 1.0 {tablet} suspended Zofran 4 MG eCW1 ([facility]) Ondansetron 4 MG Oral Tablet [Zofran] Zofran 4 MG Zofran 4 M G 04/06/2020 12:00:00 AM EDT 1.0 {tablet} suspended Zofran 4 MG eCW1 ([facility]) Tylenol with Codeine #3 300-30 MG UNK 04/06/2020 12:00:00 AM EDT 1.0 {tablet_as_needed} suspended Tylenol wit h Codeine #3 300-30 MG eCW1 ([facility]) Ondansetron 4 MG Oral Tablet [Zofran] Zofran 4 MG Zofran 4 M G 04/06/2020 12:00:00 AM EDT 1.0 {tablet} suspended Zofran 4 MG eCW1 ([facility]) Ondansetron 4 MG Oral Tablet [Zofran] Zofran 4 MG Zofran 4 M G 04/06/2020 12:00:00 AM EDT 1.0 {tablet} suspended Zofran 4 MG eCW1 ([facility]) Tylenol with Codeine #3 300-30 MG UNK 04/06/2020 12:00:00 AM EDT 1.0 {tablet_as_needed} suspended Tylenol wit h Codeine #3 300-30 MG eCW1 ([facility]) Ondansetron 4 MG Oral Tablet [Zofran] Zofran 4 MG Zofran 4 M G 04/06/2020 12:00:00 AM EDT 1.0 {tablet} suspended Zofran 4 MG eCW1 ([facility]) Ondansetron 4 MG Oral Tablet [Zofran] Zofran 4 MG Zofran 4 M G 04/06/2020 12:00:00 AM EDT 1.0 {tablet} suspended Zofran 4 MG eCW1 ([facility]) Ondansetron 4 MG Oral Tablet [Zofran] Zofran 4 MG Zofran 4 M G 04/06/2020 12:00:00 AM EDT 1.0 {tablet} suspended Zofran 4 MG eCW1 ([facility]) 4 mg 04/06/2020 12:00:00 AM EDT tablet [...] wit h Codeine #3 300-30 MG eCW1 ([facility]) Acetaminophen 300 MG / Codeine Phosphate 30 MG Oral Tablet [Tylenol with Codeine] Tylenol with Codeine #3 300-30 MG Tylenol with Codeine #3 300-30 MG 04/06/2020 12:00:00 AM EDT 1.0 {tablet_as_needed} suspended Tylenol with Codeine #3 300-30 MG eCW1 ([facility]) Acetaminophen 300 MG / Codeine Phosphate 30 MG Oral Tablet [Tylenol with Codeine] Tylenol with Codeine #3 300-30 MG Tylenol with Codeine #3 300-30 MG 04/06/2020 12:00:00 AM EDT 1.0 {tablet_as_needed} active Tylenol with Codeine #3 300-30 MG eCW1 ([facility]) Tylenol with Codeine #3 300-30 MG UNK 04/06/2020 12:00:00 AM EDT 1.0 {tablet_as_needed} suspended Tylenol wit h Codeine #3 300-30 MG eCW1 ([facility]) 81 mg 04/01/2020 12:00:00 AM EDT tablet,delayed [...] {tablet} active Le xapro 5 MG eCW1 ([facility]) Escitalopram 5 MG Oral Tablet [Lexapro] Lexapro 5 MG Lexapro 5 MG 03/07/2020 12:00:00 AM EDT 1.0 {tablet} active Le xapro 5 MG eCW1 ([facility]) Escitalopram 5 MG Oral Tablet [Lexapro] Lexapro 5 MG Lexapro 5 MG 03/07/2020 12:00:00 AM EDT 1.0 {tablet} active Le xapro 5 MG eCW1 ([facility]) Escitalopram 5 MG Oral Tablet [Lexapro] Lexapro 5 MG Lexapro 5 MG 03/07/2020 12:00:00 AM EDT 1.0 {tablet} active Le xapro 5 MG eCW1 ([facility]) Escitalopram 5 MG Oral Tablet [Lexapro] Lexapro 5 MG Lexapro 5 MG 03/07/2020 12:00:00 AM EDT 1.0 {tablet} active Le xapro 5 MG eCW1 ([facility]) Escitalopram 5 MG Oral Tablet [Lexapro] Lexapro 5 MG Lexapro 5 MG 03/07/2020 12:00:00 AM EDT 1.0 {tablet} active Le xapro 5 MG eCW1 ([facility]) Escitalopram 5 MG Oral Tablet [Lexapro] Lexapro 5 MG Lexapro 5 MG 03/07/2020 12:00:00 AM EDT 1.0 {tablet} active Le xapro 5 MG eCW1 ([facility]) Escitalopram 5 MG Oral Tablet [Lexapro] Lexapro 5 MG Lexapro 5 MG 03/07/2020 12:00:00 AM EDT 1.0 {tablet} active Le xapro 5 MG eCW1 ([facility]) Escitalopram 5 MG Oral Tablet [Lexapro] Lexapro 5 MG Lexapro 5 MG 03/07/2020 12:00:00 AM EDT 1.0 {tablet} active Le xapro 5 MG eCW1 ([facility]) Escitalopram 5 MG Oral Tablet [Lexapro] Lexapro 5 MG Lexapro 5 MG 03/07/2020 12:00:00 AM EDT 1.0 {tablet} active Le xapro 5 MG eCW1 ([facility]) Escitalopram 5 MG Oral Tablet [Lexapro] Lexapro 5 MG Lexapro 5 MG 03/07/2020 12:00:00 AM EDT 1.0 {tablet} active Le xapro 5 MG eCW1 ([facility]) Escitalopram 5 MG Oral Tablet [Lexapro] Lexapro 5 MG Lexapro 5 MG 03/07/2020 12:00:00 AM EDT 1.0 {tablet} active Le xapro 5 MG eCW1 ([facility]) Escitalopram 5 MG Oral Tablet [Lexapro] Lexapro 5 MG Lexapro 5 MG 03/07/2020 12:00:00 AM EDT 1.0 {tablet} active Le xapro 5 MG eCW1 ([facility]) Escitalopram 5 MG Oral Tablet [Lexapro] Lexapro 5 MG Lexapro 5 MG 03/07/2020 12:00:00 AM EDT 1.0 {tablet} active Le xapro 5 MG eCW1 ([facility]) Escitalopram 5 MG Oral Tablet ESCITALOPRAM OXALATE 03/07/2020 12 :00:00 AM EDT tablet 30 TAKE ONE TABLET BY MOUTH EVERY D AY TAKE ONE TABLET BY MOUTH EVERY DAY SOLD: 03/07/2020 [facility] Escitalopram 5 MG Oral Tablet [Lexapro] Lexapro 5 MG Lexapro 5 MG 03/07/2020 12:00:00 AM EDT 1.0 {tablet} active Le xapro 5 MG eCW1 ([facility]) Escitalopram 5 MG Oral Tablet ESCITALOPRAM OXALATE [...] active Lo sartan Potassium 50 MG eCW1 ([facility]) Losartan Potassium 50 MG Oral Tablet Losartan Potassium 50 M G 01/07/2020 12:00:00 AM EDT active 1 tablet eCW1 ([facility]) Losartan Potassium 50 MG Oral Tablet Losartan Potassium 50 M G 01/07/2020 12:00:00 AM EDT 1.0 {tablet} active Lo sartan Potassium 50 MG eCW1 ([facility]) 25 mg 01/07/2020 12:00:00 AM EDT tablet 30 TAKE ONE TABLET BY MOUTH EVERY DAY TAKE ONE TABLET BY MOUTH EVERY DAY SOLD: 01/07/2020 [facility] Losartan Potassium 50 MG Oral Tablet Losartan Potassium 50 M G 01/07/2020 12:00:00 AM EDT 1.0 {tablet} active Lo sartan Potassium 50 MG eCW1 ([facility]) Losartan Potassium 25 MG Oral Tablet Losartan Potassium 25 M G 01/07/2020 12:00:00 AM EDT active 1 tablet eCW1 ([facility]) Losartan Potassium 50 MG Oral Tablet Losartan Potassium 50 M G 01/07/2020 12:00:00 AM EDT 1.0 {tablet} active Lo sartan Potassium 50 MG eCW1 ([facility]) Losartan Potassium 50 MG Oral Tablet Losartan Potassium 50 M G 01/07/2020 12:00:00 AM EDT 1.0 {tablet} active Lo sartan Potassium 50 MG eCW1 ([facility]) 25 mg 01/07/2020 12:00:00 AM EDT tablet 30 TAKE ONE TABLET BY MOUTH EVERY DAY TAKE ONE TABLET BY MOUTH EVERY DAY SOLD: 02/06/2020 [facility] Losartan Potassium 50 MG Oral Tablet Losartan Potassium 50 M G 01/07/2020 12:00:00 AM EDT 1.0 {tablet} active Lo sartan Potassium 50 MG eCW1 ([facility]) Losartan Potassium 50 MG Oral Tablet Losartan Potassium 50 M G 01/07/2020 12:00:00 AM EDT active 1 tablet eCW1 ([facility]) Losartan Potassium 50 MG Oral Tablet Losartan Potassium 50 M G 01/07/2020 12:00:00 AM EDT active 1 tablet eCW1 ([facility]) Losartan Potassium 50 MG Oral Tablet Losartan Potassium 50 M G 01/07/2020 12:00:00 AM EDT 1.0 {tablet} active Lo sartan Potassium 50 MG eCW1 ([facility]) Losartan Potassium 50 MG Oral Tablet Losartan Potassium 50 M G 01/07/2020 12:00:00 AM EDT 1.0 {tablet} active Lo sartan Potassium 50 MG eCW1 ([facility]) Losartan Potassium 50 MG Oral Tablet Losartan Potassium 50 M G 01/07/2020 12:00:00 AM EDT 1.0 {tablet} active Lo sartan Potassium 50 MG eCW1 ([facility]) Losartan Potassium 50 MG Oral Tablet Losartan Potassium 50 M G 01/07/2020 12:00:00 AM EDT 1.0 {tablet} active Lo sartan Potassium 50 MG eCW1 (Formerly [facility]) Losartan Potassium 50 MG Oral Tablet Losartan Potassium 50 M G 01/07/2020 12:00:00 AM EDT 1.0 {tablet} active Lo sartan Potassium 50 MG eCW1 (Formerly [facility]) Losartan Potassium 50 MG Oral Tablet Losartan Potassium 50 M G 01/07/2020 12:00:00 AM EDT 1.0 {tablet} active Lo sartan Potassium 50 MG eCW1 (Formerly [facility]) Losartan Potassium 50 MG Oral Tablet Losartan Potassium 50 M G 01/07/2020 12:00:00 AM EDT 1.0 {tablet} active Lo sartan Potassium 50 MG eCW1 (Formerly [facility]) Losartan Potassium 25 MG Oral Tablet Losartan Potassium 25 M G 01/07/2020 12:00:00 AM EDT active 1 tablet eCW1 (Formerly [facility]) Losartan Potassium 50 MG Oral Tablet Losartan Potassium 50 M G 01/07/2020 12:00:00 AM EDT 1.0 {tablet} active Lo sartan Potassium 50 MG eCW1 (Formerly [facility]) Losartan Potassium 25 MG Oral Tablet Losartan Potassium 25 M G 01/07/2020 12:00:00 AM EDT active 1 tablet eCW1 (Formerly [facility]) Losartan Potassium 50 MG Oral Tablet Losartan Potassium 50 M G 01/07/2020 12:00:00 AM EDT 1.0 {tablet} active Lo sartan Potassium 50 MG eCW1 (Formerly [facility]) Lisinopril 2.5 MG Oral Tablet Lisinopril 2.5 MG 12/29/2019 12:00:00 A M EDT active 1 tablet eCW1 ([facility]) Lisinopril 2.5 MG Oral Tablet Lisinopril 2.5 MG 12/23/2019 12:00:00 A M EST active 1 tablet eCW1 ([facility]) Lisinopril 2.5 MG Oral Tablet Lisinopril 2.5 MG 12/23/2019 12:00:00 AM EST 1.0 {tablet} suspended Lisinopril 2.5 MG eC W1 ([facility]ly [facility]) Lisinopril 2.5 MG Oral Tablet Lisinopril 2.5 MG 12/23/2019 12:00:00 AM EST 1.0 {tablet} suspended Lisinopril 2.5 MG eC W1 ([facility]ly [facility]) Lisinopril 2.5 MG Oral Tablet Lisinopril 2.5 MG 12/23/2019 12:00:00 A M EST suspended 1 tablet eCW1 ([facility]) Lisinopril 2.5 MG Oral Tablet Lisinopril 2.5 MG 12/23/2019 12:00:00 AM EST 1.0 {tablet} suspended Lisinopril 2.5 MG eC W1 ([facility]ly [facility]) Lisinopril 2.5 MG Oral Tablet Lisinopril 2.5 MG 12/23/2019 12:00:00 AM EST 1.0 {tablet} suspended Lisinopril 2.5 MG eC W1 ([facility]ly [facility]) Lisinopril 2.5 MG Oral Tablet Lisinopril 2.5 MG 12/23/2019 12:00:00 AM EST 1.0 {tablet} suspended Lisinopril 2.5 MG eC W1 ([facility]ly [facility]) Lisinopril 2.5 MG Oral Tablet Lisinopril 2.5 MG 12/23/2019 12:00:00 AM EST 1.0 {tablet} suspended Lisinopril 2.5 MG eC W1 ([facility]ly [facility]) Lisinopril 2.5 MG Oral Tablet Lisinopril 2.5 MG 12/23/2019 12:00:00 AM EST 1.0 {tablet} suspended Lisinopril 2.5 MG eC W1 ([facility]ly [facility]) Lisinopril 2.5 MG Oral Tablet Lisinopril 2.5 MG 12/23/2019 12:00:00 AM EST 1.0 {tablet} suspended Lisinopril 2.5 MG eC W1 ([facility]ly [facility]) Lisinopril 2.5 MG Oral Tablet Lisinopril 2.5 MG 12/23/2019 12:00:00 AM EST 1.0 {tablet} suspended Lisinopril 2.5 MG eC W1 ([facility]) Lisinopril 2.5 MG Oral Tablet Lisinopril 2.5 MG 12/23/2019 12:00:00 AM EST 1.0 {tablet} suspended Lisinopril 2.5 MG eC W1 ([facility]) Lisinopril 2.5 MG Oral Tablet Lisinopril 2.5 MG 12/23/2019 12:00:00 AM EST 1.0 {tablet} suspended Lisinopril 2.5 MG eC W1 ([facility]) Lisinopril 2.5 MG Oral Tablet Lisinopril 2.5 MG 12/23/2019 12:00:00 A M EST suspended 1 tablet eCW1 ([facility]) Lisinopril 2.5 MG Oral Tablet Lisinopril 2.5 MG 12/23/2019 12:00:00 AM EST 1.0 {tablet} suspended Lisinopril 2.5 MG eC W1 ([facility]) Lisinopril 2.5 MG Oral Tablet Lisinopril 2.5 MG 12/23/2019 12:00:00 A M EST suspended 1 tablet eCW1 ([facility]) Lisinopril 2.5 MG Oral Tablet Lisinopril 2.5 MG 12/23/2019 12:00:00 AM EST 1.0 {tablet} suspended Lisinopril 2.5 MG eC W1 ([facility]) 2.5 mg 12/23/2019 12:00:00 AM EST tablet 30 TAKE ONE TABLET BY MOUTH EVERY DAY TAKE ONE TABLET BY MOUTH EVERY DAY SOLD: 12/23/2019 [facility] Lisinopril 2.5 MG Oral Tablet Lisinopril 2.5 MG 12/23/2019 12:00:00 AM EST 1.0 {tablet} suspended Lisinopril 2.5 MG eC W1 ([facility]) Lisinopril 2.5 MG Oral Tablet Lisinopril 2.5 MG 12/23/2019 12:00:00 AM EST 1.0 {tablet} suspended Lisinopril 2.5 MG eC W1 ([facility]ly [facility]) 75 mcg 12/19/2019 12:00:00 AM EST tablet [...] active Amitriptyline HCl 25 MG e CW1 ([facility]ly [facility]) 0.3 ML Epinephrine 1 MG/ML Auto-Injector [Epipen] EpiP en 2-Bryce 0.3 MG/0.3ML EpiPen 2-Bryce 0.3 MG/0.3ML 12/08/2019 12:00:00 AM EST active EpiPen 2-Bryce 0.3 MG/0.3ML eCW1 (Formerly [facility]) Amitriptyline Hydrochloride 25 MG Oral Tablet Amitript yline HCl 25 MG Amitriptyline HCl 25 MG 12/08/2019 12:00:00 AM EST active 1 tablet at bedtime eCW1 ([facility]ly [facility]) 0.3 ML Epinephrine 1 MG/ML Auto-Injector [Epipen] EpiP en 2-Bryce 0.3 MG/0.3ML EpiPen 2-Bryce 0.3 MG/0.3ML 12/08/2019 12:00:00 AM EST active EpiPen 2-Bryce 0.3 MG/0.3ML eCW1 ([facility]ly [facility]) 0.3 ML Epinephrine 1 MG/ML Auto-Injector [Epipen] EpiP en 2-Bryce 0.3 MG/0.3ML EpiPen 2-Bryce 0.3 MG/0.3ML 12/08/2019 12:00:00 AM EST active EpiPen 2-Bryce 0.3 MG/0.3ML eCW1 ([facility]ly [facility]) 0.3 ML Epinephrine 1 MG/ML Auto-Injector [Epipen] EpiP en 2-Bryce 0.3 MG/0.3ML EpiPen 2-Bryce 0.3 MG/0.3ML 12/08/2019 12:00:00 AM EST active EpiPen 2-Bryce 0.3 MG/0.3ML eCW1 ([facility]) Amitriptyline Hydrochloride 25 MG Oral Tablet Amitript yline HCl 25 MG Amitriptyline HCl 25 MG 12/08/2019 12:00:00 AM EST 1.0 {tablet_at_b edtime} active Amitriptyline HCl 25 MG e CW1 ([facility]) 0.3 ML Epinephrine 1 MG/ML Auto-Injector [Epipen] EpiP en 2-Bryce 0.3 MG/0.3ML EpiPen 2-Bryce 0.3 MG/0.3ML 12/08/2019 12:00:00 AM EST active as directed eCW1 ([facility]) Amitriptyline Hydrochloride 25 MG Oral Tablet Amitript yline HCl 25 MG Amitriptyline HCl 25 MG 12/08/2019 12:00:00 AM EST active 1 tablet at bedtime eCW1 ([facility]) 0.3 ML Epinephrine 1 MG/ML Auto-Injector [Epipen] EpiP en 2-Bryce 0.3 MG/0.3ML EpiPen 2-Bryce 0.3 MG/0.3ML 12/08/2019 12:00:00 AM EST active as directed eCW1 ([facility]) Amitriptyline Hydrochloride 25 MG Oral Tablet Amitript yline HCl 25 MG Amitriptyline HCl 25 MG 12/08/2019 12:00:00 AM EST 1.0 {tablet_at_b edtime} active Amitriptyline HCl 25 MG e CW1 ([facility]) 0.3 ML Epinephrine 1 MG/ML Auto-Injector [Epipen] EpiP en 2-Bryce 0.3 MG/0.3ML EpiPen 2-Bryce 0.3 MG/0.3ML 12/08/2019 12:00:00 AM EST active EpiPen 2-Bryce 0.3 MG/0.3ML eCW1 ([facility]) 0.3 ML Epinephrine 1 MG/ML Auto-Injector [Epipen] EpiP en 2-Bryce 0.3 MG/0.3ML EpiPen 2-Bryce 0.3 MG/0.3ML 12/08/2019 12:00:00 AM EST active as directed eCW1 ([facility]) Amitriptyline Hydrochloride 25 MG Oral Tablet Amitript yline HCl 25 MG Amitriptyline HCl 25 MG 12/08/2019 12:00:00 AM EST 1.0 {tablet_at_b edtime} active Amitriptyline HCl 25 MG e CW1 ([facility]) Amitriptyline Hydrochloride 25 MG Oral Tablet Amitript yline HCl 25 MG Amitriptyline HCl 25 MG 12/08/2019 12:00:00 AM EST 1.0 {tablet_at_b edtime} active Amitriptyline HCl 25 MG e CW1 ([facility]) Amitriptyline Hydrochloride 25 MG Oral Tablet Amitript yline HCl 25 MG Amitriptyline HCl 25 MG 12/08/2019 12:00:00 AM EST 1.0 {tablet_at_b edtime} active Amitriptyline HCl 25 MG e CW1 ([facility]) 0.3 ML Epinephrine 1 MG/ML Auto-Injector [Epipen] EpiP en 2-Bryce 0.3 MG/0.3ML EpiPen 2-Bryce 0.3 MG/0.3ML 12/08/2019 12:00:00 AM EST active EpiPen 2-Bryce 0.3 MG/0.3ML eCW1 ([facility]) Amitriptyline Hydrochloride 25 MG Oral Tablet Amitript yline HCl 25 MG Amitriptyline HCl 25 MG 12/08/2019 12:00:00 AM EST 1.0 {tablet_at_b edtime} active Amitriptyline HCl 25 MG e CW1 ([facility]) Amitriptyline Hydrochloride 25 MG Oral Tablet Amitript yline HCl 25 MG Amitriptyline HCl 25 MG 12/08/2019 12:00:00 AM EST active 1 tablet at bedtime eCW1 ([facility]) Amitriptyline Hydrochloride 25 MG Oral Tablet Amitript yline HCl 25 MG Amitriptyline HCl 25 MG 12/08/2019 12:00:00 AM EST active 1 tablet at bedtime eCW1 ([facility]) 0.3 ML Epinephrine 1 MG/ML Auto-Injector [Epipen] EpiP en 2-Bryce 0.3 MG/0.3ML EpiPen 2-Bryce 0.3 MG/0.3ML 12/08/2019 12:00:00 AM EST active EpiPen 2-Bryce 0.3 MG/0.3ML eCW1 ([facility]) Amitriptyline Hydrochloride 25 MG Oral Tablet Amitript yline HCl 25 MG Amitriptyline HCl 25 MG 12/08/2019 12:00:00 AM EST active 1 tablet at bedtime eCW1 ([facility]) 0.3 ML Epinephrine 1 MG/ML Auto-Injector [Epipen] EpiP en 2-Bryce 0.3 MG/0.3ML EpiPen 2-Bryce 0.3 MG/0.3ML 12/08/2019 12:00:00 AM EST active as directed eCW1 ([facility]) 0.3 mg/0.3 mL 12/08/2019 12:00:00 AM EST auto-injector 2 USE DIRECTED NEEDED USE DIRECTED NEEDED SOLD: 12/08/2019 [facility] Amitriptyline Hydrochloride 25 MG Oral Tablet Amitript yline HCl 25 MG Amitriptyline HCl 25 MG 12/08/2019 12:00:00 AM EST 1.0 {tablet_at_b edtime} active Amitriptyline HCl 25 MG e CW1 ([facility]) Amitriptyline Hydrochloride 25 MG Oral Tablet Amitript yline HCl 25 MG Amitriptyline HCl 25 MG 12/08/2019 12:00:00 AM EST 1.0 {tablet_at_b edtime} active Amitriptyline HCl 25 MG e CW1 ([facility]) 0.3 ML Epinephrine 1 MG/ML Auto-Injector [Epipen] EpiP en 2-Bryce 0.3 MG/0.3ML EpiPen 2-Bryce 0.3 MG/0.3ML 12/08/2019 12:00:00 AM EST active EpiPen 2-Bryce 0.3 MG/0.3ML eCW1 ([facility]) Amitriptyline Hydrochloride 25 MG Oral Tablet Amitript yline HCl 25 MG Amitriptyline HCl 25 MG 12/08/2019 12:00:00 AM EST 1.0 {tablet_at_b edtime} active Amitriptyline HCl 25 MG e CW1 ([facility]) 0.3 ML Epinephrine 1 MG/ML Auto-Injector [Epipen] EpiP en 2-Bryce 0.3 MG/0.3ML EpiPen 2-Bryce 0.3 MG/0.3ML 12/08/2019 12:00:00 AM EST active EpiPen 2-Bryce 0.3 MG/0.3ML eCW1 ([facility]) Amitriptyline Hydrochloride 25 MG Oral Tablet AMITRIPTYLINE HCL 12/08/2019 12:00:00 AM EST tablet 30 TAKE ONE TABLET BY MOUTH AT BEDTIME TAKE ONE TABLET BY MOUTH AT BEDTIME SOLD: 05/02/2020 [facility] 0.3 ML Epinephrine 1 MG/ML Auto-Injector [Epipen] EpiP en 2-Bryce 0.3 MG/0.3ML EpiPen 2-Bryce 0.3 MG/0.3ML 12/08/2019 12:00:00 AM EST active EpiPen 2-Bryce 0.3 MG/0.3ML eCW1 ([facility]) Amitriptyline Hydrochloride 25 MG Oral Tablet Amitript yline HCl 25 MG Amitriptyline HCl 25 MG 12/08/2019 12:00:00 AM EST 1.0 {tablet_at_b edtime} active Amitriptyline HCl 25 MG e CW1 ([facility]) 0.3 ML Epinephrine 1 MG/ML Auto-Injector [Epipen] EpiP en 2-Bryce 0.3 MG/0.3ML EpiPen 2-Bryce 0.3 MG/0.3ML 12/08/2019 12:00:00 AM EST active EpiPen 2-Bryce 0.3 MG/0.3ML eCW1 ([facility]) 0.3 ML Epinephrine 1 MG/ML Auto-Injector [Epipen] EpiP en 2-Bryce 0.3 MG/0.3ML EpiPen 2-Bryce 0.3 MG/0.3ML 12/08/2019 12:00:00 AM EST active EpiPen 2-Bryce 0.3 MG/0.3ML eCW1 ([facility]) Amitriptyline Hydrochloride 25 MG Oral Tablet AMITRIPTYLINE [...] EST active 1 tablet at bedtime eCW1 ([facility]) 0.3 ML Epinephrine 1 MG/ML Auto-Injector [Epipen] EpiP en 2-Bryce 0.3 MG/0.3ML EpiPen 2-Bryce 0.3 MG/0.3ML 12/08/2019 12:00:00 AM EST active EpiPen 2-Bryce 0.3 MG/0.3ML eCW1 ([facility]) Amitriptyline Hydrochloride 25 MG Oral Tablet Amitript yline HCl 25 MG Amitriptyline HCl 25 MG 12/08/2019 12:00:00 AM EST 1.0 {tablet_at_b edtime} active Amitriptyline HCl 25 MG e CW1 ([facility]) 0.3 ML Epinephrine 1 MG/ML Auto-Injector [Epipen] EpiP en 2-Bryce 0.3 MG/0.3ML EpiPen 2-Bryce 0.3 MG/0.3ML 12/08/2019 12:00:00 AM EST active EpiPen 2-Bryce 0.3 MG/0.3ML eCW1 ([facility]) Amitriptyline Hydrochloride 25 MG Oral Tablet Amitript yline HCl 25 MG Amitriptyline HCl 25 MG 12/08/2019 12:00:00 AM EST 1.0 {tablet_at_b edtime} active Amitriptyline HCl 25 MG e CW1 ([facility]) 0.3 ML Epinephrine 1 MG/ML Auto-Injector [Epipen] EpiP en 2-Bryce 0.3 MG/0.3ML EpiPen 2-Bryce 0.3 MG/0.3ML 12/08/2019 12:00:00 AM EST active as directed eCW1 ([facility]) Amitriptyline Hydrochloride 25 MG Oral Tablet Amitript yline HCl 25 MG Amitriptyline HCl 25 MG 12/08/2019 12:00:00 AM EST 1.0 {tablet_at_b edtime} active Amitriptyline HCl 25 MG e CW1 ([facility]) Amitriptyline Hydrochloride 25 MG Oral Tablet Amitript yline HCl 25 MG Amitriptyline HCl 25 MG 12/08/2019 12:00:00 AM EST 1.0 {tablet_at_b edtime} active Amitriptyline HCl 25 MG e CW1 ([facility]) 0.3 ML Epinephrine 1 MG/ML Auto-Injector [Epipen] EpiP en 2-Bryce 0.3 MG/0.3ML EpiPen 2-Bryce 0.3 MG/0.3ML 12/08/2019 12:00:00 AM EST active EpiPen 2-Bryce 0.3 MG/0.3ML eCW1 ([facility]) Amitriptyline Hydrochloride 25 MG Oral Tablet Amitript yline HCl 25 MG Amitriptyline HCl 25 MG 12/08/2019 12:00:00 AM EST 1.0 {tablet_at_b edtime} active Amitriptyline HCl 25 MG e CW1 ([facility]) Amitriptyline Hydrochloride 25 MG Oral Tablet AMITRIPTYLINE HCL 12/08/2019 12:00:00 AM EST tablet 30 TAKE ONE TABLET BY MOUTH AT BEDTIME TAKE ONE TABLET BY MOUTH AT BEDTIME SOLD: 12/08/2019 [facility] Amitriptyline Hydrochloride 25 MG Oral Tablet Amitript yline HCl 25 MG Amitriptyline HCl 25 MG 12/08/2019 12:00:00 AM EST 1.0 {tablet_at_b edtime} active Amitriptyline HCl 25 MG e CW1 ([facility]) 0.3 ML Epinephrine 1 MG/ML Auto-Injector [Epipen] EpiP en 2-Bryce 0.3 MG/0.3ML EpiPen 2-Bryce 0.3 MG/0.3ML 12/08/2019 12:00:00 AM EST active EpiPen 2-Bryce 0.3 MG/0.3ML eCW1 ([facility]) Amitriptyline Hydrochloride 25 MG Oral Tablet AMITRIPTYLINE HCL 12/08/2019 12:00:00 AM EST tablet 30 TAKE ONE TABLET BY MOUTH AT BEDTIME TAKE ONE TABLET BY MOUTH AT BEDTIME SOLD: 04/06/2020 [facility] Amitriptyline Hydrochloride 25 MG Oral Tablet Amitript yline HCl 25 MG Amitriptyline HCl 25 MG 12/08/2019 12:00:00 AM EST 1.0 {tablet_at_b edtime} active Amitriptyline HCl 25 MG e CW1 ([facility]) Amitriptyline Hydrochloride 25 MG Oral Tablet Amitript yline HCl 25 MG Amitriptyline HCl 25 MG 12/08/2019 12:00:00 AM EST 1.0 {tablet_at_b edtime} active Amitriptyline HCl 25 MG e CW1 ([facility]) 0.3 ML Epinephrine 1 MG/ML Auto-Injector [Epipen] EpiP en 2-Bryce 0.3 MG/0.3ML EpiPen 2-Bryce 0.3 MG/0.3ML 12/08/2019 12:00:00 AM EST active EpiPen 2-Bryce 0.3 MG/0.3ML eCW1 ([facility]) Amitriptyline Hydrochloride 25 MG Oral Tablet AMITRIPTYLINE HCL 12/08/2019 12:00:00 AM EST tablet 30 TAKE ONE TABLET BY MOUTH AT BEDTIME TAKE ONE TABLET BY MOUTH AT BEDTIME SOLD: 03/07/2020 [facility] 0.3 ML Epinephrine 1 MG/ML Auto-Injector [Epipen] EpiP en 2-Bryce 0.3 MG/0.3ML EpiPen 2-Bryce 0.3 MG/0.3ML 12/08/2019 12:00:00 AM EST active EpiPen 2-Bryce 0.3 MG/0.3ML eCW1 ([facility]) 0.3 ML Epinephrine 1 MG/ML Auto-Injector [Epipen] EpiP en 2-Bryce 0.3 MG/0.3ML EpiPen 2-Bryce 0.3 MG/0.3ML 12/08/2019 12:00:00 AM EST active EpiPen 2-Bryce 0.3 MG/0.3ML eCW1 ([facility]) 81 mg 12/07/2019 12:00:00 AM EST tablet,delayed [...] 12:00:00 AM EST active 2 tablet eCW1 ([facility]) 20 mg 11/06/2019 12:00:00 AM EST tablet 10 TAKE TWO TABLETS BY MOUTH ONCE DAILY FOR 5 DAYS TAKE TWO TABLETS BY MOUTH ONCE DAILY FOR 5 DAYS SOLD: 11/06/2019 [facility] Albuterol Sulfate HFA 108 (90 Base) MCG/ACT Albuterol Sulfate HFA 108 (90 Base) MCG/ACT 11/04/2019 12:00:00 AM EST 1.0 {puff_as_needed} active Albuterol Sulfate HFA 108 (90 Base) MCG/ACT eCW1 ([facility]) Albuterol Sulfate HFA 108 (90 Base) MCG/ACT Albuterol Sulfate HFA 108 (90 Base) MCG/ACT 11/04/2019 12:00:00 AM EST 1.0 {puff_as_needed} active Albuterol Sulfate HFA 108 (90 Base) MCG/ACT eCW1 ([facility]) Albuterol Sulfate HFA 108 (90 Base) MCG/ACT Albuterol Sulfate HFA 108 (90 Base) MCG/ACT 11/04/2019 12:00:00 AM EST 1.0 {puff_as_needed} active Albuterol Sulfate HFA 108 (90 Base) MCG/ACT eCW1 ([facility]) Doxycycline Monohydrate 100 MG Oral Tablet Doxycycline Monoh ydrate 100 MG 11/04/2019 12:00:00 AM EST active 1 tablet eCW1 ([facility]) Albuterol Sulfate HFA 108 (90 Base) MCG/ACT Albuterol Sulfate HFA 108 (90 Base) MCG/ACT 11/04/2019 12:00:00 AM EST 1.0 {puff_as_needed} active Albuterol Sulfate HFA 108 (90 Base) MCG/ACT eCW1 ([facility]) Albuterol Sulfate HFA 108 (90 Base) MCG/ACT Albuterol Sulfate HFA 108 (90 Base) MCG/ACT 11/04/2019 12:00:00 AM EST 1.0 {puff_as_needed} active Albuterol Sulfate HFA 108 (90 Base) MCG/ACT eCW1 ([facility]) Albuterol Sulfate HFA 108 (90 Base) MCG/ACT Albuterol Sulfate HFA 108 (90 Base) MCG/ACT 11/04/2019 12:00:00 AM EST 1.0 {puff_as_needed} active Albuterol Sulfate HFA 108 (90 Base) MCG/ACT eCW1 ([facility]) Albuterol Sulfate HFA 108 (90 Base) MCG/ACT Albuterol Sulfate HFA 108 (90 Base) MCG/ACT 11/04/2019 12:00:00 AM EST 1.0 {puff_as_needed} active Albuterol Sulfate HFA 108 (90 Base) MCG/ACT eCW1 ([facility]) Albuterol Sulfate HFA 108 (90 Base) MCG/ACT Albuterol Sulfate HFA 108 (90 Base) MCG/ACT 11/04/2019 12:00:00 AM EST 1.0 {puff_as_needed} active Albuterol Sulfate HFA 108 (90 Base) MCG/ACT eCW1 ([facility]) Albuterol Sulfate HFA 108 (90 Base) MCG/ACT Albuterol Sulfate HFA 108 (90 Base) MCG/ACT 11/04/2019 12:00:00 AM EST active 1 puff as needed eCW1 ([facility]) Albuterol Sulfate HFA 108 (90 Base) MCG/ACT Albuterol Sulfate HFA 108 (90 Base) MCG/ACT 11/04/2019 12:00:00 AM EST 1.0 {puff_as_needed} active Albuterol Sulfate HFA 108 (90 Base) MCG/ACT eCW1 ([facility]) Albuterol Sulfate HFA 108 (90 Base) MCG/ACT Albuterol Sulfate HFA 108 (90 Base) MCG/ACT 11/04/2019 12:00:00 AM EST active 1 puff as needed eCW1 ([facility]) Albuterol Sulfate HFA 108 (90 Base) MCG/ACT Albuterol Sulfate HFA 108 (90 Base) MCG/ACT 11/04/2019 12:00:00 AM EST 1.0 {puff_as_needed} active Albuterol Sulfate HFA 108 (90 Base) MCG/ACT eCW1 ([facility]) Albuterol Sulfate HFA 108 (90 Base) MCG/ACT Albuterol Sulfate HFA 108 (90 Base) MCG/ACT 11/04/2019 12:00:00 AM EST 1.0 {puff_as_needed} active Albuterol Sulfate HFA 108 (90 Base) MCG/ACT eCW1 ([facility]) Albuterol Sulfate HFA 108 (90 Base) MCG/ACT Albuterol Sulfate HFA 108 (90 Base) MCG/ACT 11/04/2019 12:00:00 AM EST 1.0 {puff_as_needed} active Albuterol Sulfate HFA 108 (90 Base) MCG/ACT eCW1 ([facility]) Albuterol Sulfate HFA 108 (90 Base) MCG/ACT Albuterol Sulfate HFA 108 (90 Base) MCG/ACT 11/04/2019 12:00:00 AM EST active 1 puff as needed eCW1 ([facility]) Albuterol Sulfate HFA 108 (90 Base) MCG/ACT Albuterol Sulfate HFA 108 (90 Base) MCG/ACT 11/04/2019 12:00:00 AM EST 1.0 {puff_as_needed} active Albuterol Sulfate HFA 108 (90 Base) MCG/ACT eCW1 ([facility]) 90 mcg/actuation 11/04/2019 12:00:00 AM EST HFA aerosol inha ler 18 INHALE ONE PUFF BY MOUTH EVERY 6 HOURS NEEDED INHALE ONE PUFF BY MOUTH EVERY 6 HOURS NEEDED SOLD: 11/04/2019 [facility] Albuterol Sulfate HFA 108 (90 Base) MCG/ACT Albuterol Sulfate HFA 108 (90 Base) MCG/ACT 11/04/2019 12:00:00 AM EST 1.0 {puff_as_needed} active Albuterol Sulfate HFA 108 (90 Base) MCG/ACT eCW1 ([facility]) Albuterol Sulfate HFA 108 (90 Base) MCG/ACT Albuterol Sulfate HFA 108 (90 Base) MCG/ACT 11/04/2019 12:00:00 AM EST 1.0 {puff_as_needed} active Albuterol Sulfate HFA 108 (90 Base) MCG/ACT eCW1 ([facility]) Albuterol Sulfate HFA 108 (90 Base) MCG/ACT Albuterol Sulfate HFA 108 (90 Base) MCG/ACT 11/04/2019 12:00:00 AM EST 1.0 {puff_as_needed} active Albuterol Sulfate HFA 108 (90 Base) MCG/ACT eCW1 ([facility]) Albuterol Sulfate HFA 108 (90 Base) MCG/ACT Albuterol Sulfate HFA 108 (90 Base) MCG/ACT 11/04/2019 12:00:00 AM EST active 1 puff as needed eCW1 ([facility]) Albuterol Sulfate HFA 108 (90 Base) MCG/ACT Albuterol Sulfate HFA 108 (90 Base) MCG/ACT 11/04/2019 12:00:00 AM EST active 1 puff as needed eCW1 ([facility]) Albuterol Sulfate HFA 108 (90 Base) MCG/ACT Albuterol Sulfate HFA 108 (90 Base) MCG/ACT 11/04/2019 12:00:00 AM EST active 1 puff as needed eCW1 ([facility]) Albuterol Sulfate HFA 108 (90 Base) MCG/ACT Albuterol Sulfate HFA 108 (90 Base) MCG/ACT 11/04/2019 12:00:00 AM EST 1.0 {puff_as_needed} active Albuterol Sulfate HFA 108 (90 Base) MCG/ACT eCW1 ([facility]) 100 mg 11/04/2019 12:00:00 AM EST capsule 14 TAKE ONE CAPSULE BY MOUTH TWICE A DAY FOR 7 DAYS TAKE ONE CAPSULE BY MOUTH TWICE A DAY FOR 7 DAYS SOLD: 11/04/2019 [facility] Albuterol Sulfate HFA 108 (90 Base) MCG/ACT Albuterol Sulfate HFA 108 (90 Base) MCG/ACT 11/04/2019 12:00:00 AM EST 1.0 {puff_as_needed} active Albuterol Sulfate HFA 108 (90 Base) MCG/ACT eCW1 ([facility]) Albuterol Sulfate HFA 108 (90 Base) MCG/ACT Albuterol Sulfate HFA 108 (90 Base) MCG/ACT 11/04/2019 12:00:00 AM EST 1.0 {puff_as_needed} active Albuterol Sulfate HFA 108 (90 Base) MCG/ACT eCW1 (Formerly [facility]) 75 mg 10/22/2019 12:00:00 AM EST capsule 10 TAKE ONE CAPSULE BY MOUTH TWICE A DAY FOR 5 DAYS TAKE ONE CAPSULE BY MOUTH TWICE A DAY FOR 5 DAYS SOLD: 10/22/2019 [facility] Oseltamivir 75 MG Oral Capsule [Tamiflu] Tamiflu 75 MG Tamif florian 75 MG 10/22/2019 12:00:00 AM EST active 1 capsul e eCW1 (Formerly [facility]) Codeine Phosphate 2 MG/ML / Guaifenesin 20 MG/ML Oral Solution Guaifenesin- Codeine 100-10 MG/5ML Guaifenesin-Codeine 100-10 MG/5ML 10/22/2019 12:00:00 AM EST active 5 ml dye free eCW 1 (Formerly [facility]) 10-100 mg/5 mL 10/22/2019 12:00:00 AM EST [...] active 5 ml dye free eCW 1 (Formerly [facility]) 81 mg 09/12/2019 12:00:00 AM EST tablet,delayed [...] type / Coverage type Policy ID Covered green party ID Covered green party's relationship to nunez Policy Nunez Plan Information [facility] [id number] SP [id number] [facility] O [id number] S [id number] [facility] [id number] SP [id number] [facility] [id number] SP [id number] [facility] [id number] SP [id number] ANSI-Medicaid [id number] ANSI-Medicaid [id number] ANSI-Medicaid [id number] ANSI-Medicaid [id number] ANSI-Medicaid [id number] ANSI-Medicaid [id number] ANSI-Medicaid [id number] ANSI-Medicaid [id number] ANSI-Medicaid [id number] ANSI-Medicaid [id number] ANSI-Medicaid [id number] ANSI-Medicaid [id number] ANSI-Medicaid [id number] ANSI-Medicaid [id number] ANSI-Medicaid [id number] ANSI-Medicaid [id number] MEDICAID [id number] ANSI-Medicaid [id number] ANSI-Medicaid [id number] ANSI-Medicaid [id number] [facility] [id number] ANSI-Medicaid [id number] ANS-Medicaid [id number] [facility]-Medicaid [id number] MEDICAID [id number] [facility] [id number] [facility] [id number] Problems, Conditions, and Diagnoses Code Display Name Description Problem Type Effective Dates Data Source(s) M54.41 [id number] Lumbago with sciatica, right side Prob susan 07/25/2020 12:00:00 AM EDT eCW1 ([facility]) M54.42 [id number] Lumbago with sciatica, left side Problem 07/25/2020 12:00:00 AM EDT eCW1 ([facility]ly [facility]) M54.41 [id number] Acute midline low back pain with right-si ded sciatica Problem 05/12/2020 12:00:00 AM EDT eCW1 ([facility]ly [facility]) N93.9 [id number] Abnormal uterine bleeding (AUB) Problem 03/16/2020 12:00:00 AM EDT eCW1 ([facility]) N93.9 [id number] Abnormal uterine and vaginal b leeding, unspecified Problem 03/16/2020 12:00:00 AM EDT eCW1 ([facility]) F41.9 [id number] Anxiety Problem 03/07/2020 12:00:00 AM ED T eCW1 ([facility]ly [facility]) I10 [id number] Essential hypertension Problem 12/23/2019 12 :00:00 AM EST eCW1 ([facility]ly [facility]) I10 [id number] Essential hypertension Problem 12/23/2019 12 :00:00 AM EST eCW1 ([facility]ly [facility]) N20.0 Kidney stone Kidney stone Problem 10/13/2019 12:00:00 A M EST eCW1 ([facility]ly [facility]) N20.0 Kidney stone Kidney stone Problem 10/13/2019 12:00:00 A M EST eCW1 ([facility]ly [facility]) Surgeries/Procedures Procedure Description Date Indications Data Source(s) APPLICATION MODALITY 1/> AREAS HOT/COLD PACKS 09/05/20 12:00:00 AM EST MEDENT ([facility] ) THERAPEUTIC PX 1/> AREAS EACH 15 MIN EXERCISES 12:00:00 AM EST MEDENT ([facility] ) MANUAL THERAPY TQS 1/> REGIONS EACH 15 MINUTES 12:00:00 AM EST MEDENT ([facility] ) THERAPEUTIC PX 1/> AREAS EACH 15 MIN EXERCISES 12:00:00 AM EST MEDENT ([facility] ) MANUAL THERAPY TQS 1/> REGIONS EACH 15 MINUTES 12:00:00 AM EST MEDENT ([facility] ) APPLICATION MODALITY 1/> AREAS HOT/COLD PACKS 08/26/20 12:00:00 AM EST [facility] ([facility] ) THERAPEUTIC PX 1/> AREAS EACH 15 MIN EXERCISES 11/06/2 020 12:00:00 AM EST MEDENT ([facility] ) MANUAL THERAPY TQS 1/> REGIONS EACH 15 MINUTES 020 12:00:00 AM EST MEDENT ([facility]) Physical Therapy Eval - Low Complexity 08/24/2020 12:0 0:00 AM EST [facility] ([facility] ) PHYSICIAN TELEPHONE EVALUATION 5-10 MIN 01/21/2020 12: 00:00 AM EDT eCW1 ([facility]) PHYSICIAN TELEPHONE EVALUATION 11-20 MIN 01/13/2020 12 :00:00 AM EDT eCW1 ([facility]) Influenza A+B 10/22/2019 12:00:00 AM EST eCW1 ([facility]) Results ID Date Data Source [id number] 10/11/2020 12:00:00 AM EST [facility] Ermias PINON Patient Name: HARIS [id number] [facility] Date of : 1975 2 Date of Exam: 10/11/2020SHILOH Barrera [id number]#: Fax: [phone] EXAM: MRI LUMBAR SPINE WITHOUT [...] D 25-HYDROXY 09/07/2020 12:00:00 AM EST eCW1 ([facility]ly [facility]) Name Value Range Interpretation Code Description Data Eri rce(s) Supporting Document(s) 17.7 30.0-100.0 TOTAL 25(OH) VITAMIN D eC W1 ([facility]) ID Date Data Source FREE T4 & TSH PANEL 09/07/2020 12:00:00 AM EST eCW1 ([facility]) Name Value Range Interpretation Code Description Data Eri rce(s) Supporting Document(s) 0.94 0.76-1.46 FREE T4 eCW1 ([facility]) 1.850 0.358-3.740 THYROID STIMULATING HORM ONE eCW1 ([facility]ly [facility]) ID Date Data Source [id number] 06/24/2020 12:00:00 AM EDT [facility] ZI Meeks Patient Name: LIZETH STEVENSON [facility] Date of : 1975[place] [address] Date of Exam: 06/24/2020PH#: Fax: [phone] EXAM: [...] rce(s) Supporting Document(s) ID Date Data Source [id number] 06/24/2020 12:00:00 AM EDT [facility] ZI Meeks Patient Name: LIZETH STEVENSON [facility] Date of : 1975[place] [address] Date of Exam: 06/24/2020PH#: Fax: [phone] EXAM: [...] rce(s) Supporting Document(s) ID Date Data Source [id number] 03/20/2020 11:00:00 AM EDT [facility] Name Value Range Interpretation Code Description Data Eri rce(s) Supporting Document(s) SARS CORONAVIRUS 2 RNA [facility] This lab was ordered by [facility] and reported by [facility]. ID Date Data Source VITAMIN B12 LEVEL 12/23/2019 12:00:00 AM EST eCW1 ([facility]) Name Value Range Interpretation Code Description Data Eri rce(s) Supporting Document(s) 601 [id number] VITAMIN B12 LEVEL eCW1 ([facility]) ID Date Data Source Comprehensive Metabolic Profile (CMP) 12/23/2019 12:00:00 AM EST eCW1 ([facility]) Name Value Range Interpretation Code Description Data Eri rce(s) Supporting Document(s) 9 7-18 BLOOD UREA NITROGEN eCW1 ([facility]) 95 70-100 GLUCOSE, FASTING eCW1 ([facility]) 139 136-145 SODIUM LEVEL eCW1 ([facility]) 0.85 0.55-1.30 CREATININE FOR GFR eCW1 ([facility]) > 60.0 >58 GLOMERULAR FILTRATION RATE eCW 1 ([facility]) 3.9 3.5-5.1 POTASSIUM SERUM eCW1 ([facility]) 8.8 8.5-10.1 CALCIUM LEVEL eCW1 ([facility]) 104 98-107 CHLORIDE LEVEL eCW1 ([facility]) 30 21-32 CARBON DIOXIDE LEVEL eCW1 ([facility]) 18 7-37 AST/SGOT eCW1 ([facility]) 0.2 0.2-1.0 BILIRUBIN,TOTAL eCW1 ([facility]) 96 45-117 ALKALINE PHOSPHATASE eCW1 ([facility]) 28 12-78 ALT/SGPT eCW1 ([facility]) 7.5 6.4-8.2 TOTAL PROTEIN eCW1 ([facility]) 3.7 3.2-5.2 ALBUMIN eCW1 ([facility]) 0.97 1.00-1.93 ALBUMIN/GLOBULIN RATIO eCW1 ([facility]) ID Date Data Source CBC with Differential 12/23/2019 12:00:00 AM EST eCW1 ([facility]) Name Value Range Interpretation Code Description Data Eri rce(s) Supporting Document(s) 11.6 12.0-15.5 HEMOGLOBIN eCW1 ([facility]) 4.56 4.00-5.40 RED BLOOD COUNT eCW1 ([facility]) 9.4 4.0-10.0 WHITE BLOOD COUNT eCW1 ([facility]) 37.5 36.0-47.0 HEMATOCRIT eCW1 ([facility]) 25.4 27.0-33.0 MEAN CORPUSCULAR HEMOGLOB IN eCW1 ([facility]) 13.4 11.5-14.5 RED CELL DISTRIBUTION WID TH eCW1 ([facility]) 82.2 80.0-96.0 MEAN CORPUSCULAR VOLUME e CW1 ([facility]) 30.9 32.0-36.5 MEAN CORPUSCULAR HGB CONC eCW1 ([facility]) 382 150-450 PLATELET COUNT, AUTOMATED eCW1 ([facility]) 5.5 0.0-5.0 MONO % eCW1 ([facility]) 25.5 24.0-44.0 LYMPH % eCW1 ([facility]) 62.0 36.0-66.0 NEUTROPHILS % eCW1 ([facility]) 5.3 0.0-3.0 EOS % eCW1 ([facility]) 5.9 1.5-8.5 NEUTROPHILS # eCW1 ([facility]) 1.3 0.0-1.0 BASO % eCW1 ([facility]) 0.5 0.0-0.5 EOS # eCW1 ([facility]) 2.4 1.5-5.0 LYMPH # eCW1 ([facility]) 0.5 0.0-0.8 MONO # eCW1 ([facility]) 0.1 0.0-0.2 BASO # eCW1 ([facility]) ID Date Data Source CARDIAC MARKER PANEL 12/23/2019 12:00:00 AM EST eCW1 ([facility]) Name Value Range Interpretation Code Description Data Eri rce(s) Supporting Document(s) 64 26-192 CPK CREATINE PHOSPHOKINASE eCW 1 ([facility]) 1.56 < OR =4 MB/CK RELATIVE INDEX eCW1 ([facility]) < 0.02 < 0.10 TROPONIN I eCW1 ([facility]) < 1.0 <3.6 CK-MB VALUE MASS eCW1 ([facility]) ID Date Data Source RESPIRATORY PANEL 10/22/2019 12:00:00 AM EST eCW1 ([facility]) Name Value Range Interpretation Code Description Data Eri rce(s) Supporting Document(s) This respiratory PCR panel detects Influenza A H1, H3 and RESPIRATORY PANEL eCW1 ([facility]ly [facility]) Procedure Social History Code Duration Value Status Description Data Source(s ) Smoking 09/07/2020 12:00:00 AM EST Never Smoker completed Never S moker eCW1 ([facility]) Smoking 09/07/2020 12:00:00 AM EST Never Smoker completed Never S moker eCW1 ([facility]) Smoking 09/07/2020 12:00:00 AM EST Never Smoker completed Never S moker eCW1 ([facility]) Smoking 09/07/2020 12:00:00 AM EST Never Smoker completed Never S moker eCW1 ([facility]) Smoking 05/12/2020 12:00:00 AM EDT Never Smoker completed Never S moker eCW1 ([facility]) Smoking 05/12/2020 12:00:00 AM EDT Never Smoker completed Never S moker eCW1 ([facility]) Smoking 05/12/2020 12:00:00 AM EDT Never Smoker completed Never S moker eCW1 ([facility]) Smoking 05/12/2020 12:00:00 AM EDT Never Smoker completed Never S moker eCW1 ([facility]) Smoking 05/12/2020 12:00:00 AM EDT Never Smoker completed Never S moker eCW1 ([facility]) Smoking 05/12/2020 12:00:00 AM EDT Never Smoker completed Never S moker eCW1 ([facility]) Smoking 05/12/2020 12:00:00 AM EDT Never Smoker completed Never S moker eCW1 ([facility]) Smoking 05/12/2020 12:00:00 AM EDT Never Smoker completed Never S moker eCW1 ([facility]) Smoking 05/04/2020 12:00:00 AM EDT Never Smoker completed Never S moker eCW1 ([facility]) Smoking 04/06/2020 12:00:00 AM EDT Never Smoker completed Never S moker eCW1 ([facility]) Smoking 03/15/2020 12:00:00 AM EDT Never Smoker completed Never S moker eCW1 ([facility]) Smoking 03/15/2020 12:00:00 AM EDT Never Smoker completed Never S moker eCW1 ([facility]) Smoking 03/15/2020 12:00:00 AM EDT Never Smoker completed Never S moker eCW1 ([facility]) Smoking 03/15/2020 12:00:00 AM EDT Never Smoker completed Never S moker eCW1 ([facility]) Smoking 03/15/2020 12:00:00 AM EDT Never Smoker completed Never S moker eCW1 ([facility]) Vital Signs ID Date Data Source UNK Name Value Range Interpretation Code Description Data Source(s) Body temperature 96.8 [degF] 96.8 [degF] MEDENT ([facility]) Diastolic blood pressure 60 mm[Hg] 60 mm[Hg] eCW1 ([facility]) Systolic blood pressure 114 mm[Hg] 114 mm[Hg] e CW1 ([facility]) Body temperature 97.4 [degF] 97.4 [degF] eCW1 ( [facility]) Respiratory rate 16 /min 16 /min eCW1 ([facility]) Heart rate 103 /min 103 /min eCW1 ([facility]) Body mass index (BMI) [Ratio] 33.00 kg/m2 33.00 kg/m2 W1 ([facility]) Body height 60 [in_i] 60 [in_i] eCW1 ([facility]) Body weight 169 [lb_av] 169 [lb_av] eCW1 ([facility]) Body mass index (BMI) [Ratio] 32.0 kg/m2 32.0 k g/m2 MEDENT ([facility]) Body weight 164.12 [lb_av] 164.12 [lb_av] MEDEN T ([facility]) Body height 60 [in_i] 60 [in_i] MEDENT ([facility]) 5'0" Body temperature 97.1 [degF] 97.1 [degF] MEDENT ([facility]) Diastolic blood pressure 68 mm[Hg] 68 mm[Hg] eCW1 ([facility]) Systolic blood pressure 118 mm[Hg] 118 mm[Hg] e CW1 ([facility]) Body temperature 97.9 [degF] 97.9 [degF] eCW1 ( [facility]) Respiratory rate 18 /min 18 /min eCW1 ([facility]) Heart rate 114 /min 114 /min eCW1 ([facility]) Body mass index (BMI) [Ratio] 32.26 kg/m2 32.26 kg/m2 eCW1 ([facility]) Body height 60 [in_i] 60 [in_i] eCW1 ([facility]) Body weight 165.2 [lb_av] 165.2 [lb_av] eCW1 ([facility]) Diastolic blood pressure 62 mm[Hg] 62 mm[Hg] eCW1 ([facility]) Systolic blood pressure 122 mm[Hg] 122 mm[Hg] e CW1 ([facility]) Body mass index (BMI) [Ratio] 32.06 kg/m2 32.06 kg/m2 eCW1 ([facility]) Body height 60 [in_i] 60 [in_i] eCW1 ([facility]) Body weight 164.2 [lb_av] 164.2 [lb_av] eCW1 ([facility]) Diastolic blood pressure 82 mm[Hg] 82 mm[Hg] eCW1 ([facility]) Systolic blood pressure 128 mm[Hg] 128 mm[Hg] e CW1 ([facility]) Body temperature 97.4 [degF] 97.4 [degF] eCW1 ( [facility]) Body mass index (BMI) [Ratio] 31.44 kg/m2 31.44 kg/m2 eCW1 ([facility]) Body height 60 [in_i] 60 [in_i] eCW1 ([facility]) Body weight 161 [lb_av] 161 [lb_av] eCW1 ([facility]) Diastolic blood pressure 70 mm[Hg] 70 mm[Hg] eCW1 ([facility]) Systolic blood pressure 118 mm[Hg] 118 mm[Hg] e CW1 ([facility]) Body mass index (BMI) [Ratio] 32.34 kg/m2 32.34 kg/m2 eCW1 ([facility]) Body height 60 [in_i] 60 [in_i] eCW1 ([facility]) Body weight 165.6 [lb_av] 165.6 [lb_av] eCW1 ([facility]) Diastolic blood pressure 70 mm[Hg] 70 mm[Hg] eCW1 ([facility]) Systolic blood pressure 122 mm[Hg] 122 mm[Hg] e CW1 ([facility]) Body temperature 96 [degF] 96 [degF] eCW1 ([facility]) Respiratory rate 18 /min 18 /min eCW1 ([facility]) Heart rate 110 /min 110 /min eCW1 ([facility]) Body mass index (BMI) [Ratio] 32.53 kg/m2 32.53 kg/m2 eCW1 ([facility]) Body height 60 [in_i] 60 [in_i] eCW1 ([facility]) Body weight 166.6 [lb_av] 166.6 [lb_av] eCW1 ([facility]) Diastolic blood pressure 78 mm[Hg] 78 mm[Hg] eCW1 ([facility]) Systolic blood pressure 122 mm[Hg] 122 mm[Hg] e CW1 ([facility]) Body temperature 95.6 [degF] 95.6 [degF] eCW1 ( [facility]) Respiratory rate 18 /min 18 /min eCW1 ([facility]) Heart rate 113 /min 113 /min eCW1 ([facility]) Body mass index (BMI) [Ratio] 32.34 kg/m2 32.34 kg/m2 eCW1 ([facility]) Body height 60 [in_us] 60 [in_us] eCW1 ([facility]) Body weight Measured 165.6 [lb_av] 165.6 [lb_av ] eCW1 ([facility]) Diastolic blood pressure 92 mm[Hg] 92 mm[Hg] eCW1 ([facility]) Systolic blood pressure 148 mm[Hg] 148 mm[Hg] e CW1 ([facility]) Body temperature 98.7 [degF] 98.7 [degF] eCW1 ( [facility]) Respiratory rate 17 /min 17 /min eCW1 ([facility]) Heart rate 104 /min 104 /min eCW1 ([facility]) Body mass index (BMI) [Ratio] 31.95 kg/m2 31.95 kg/m2 W1 ([facility]) Body height 60 [in_us] 60 [in_us] eCW1 ([facility]) Body weight Measured 163.6 [lb_av] 163.6 [lb_av ] eCW1 ([facility]) Diastolic blood pressure 78 mm[Hg] 78 mm[Hg] eCW1 ([facility]) Systolic blood pressure 128 mm[Hg] 128 mm[Hg] e CW1 ([facility]) Body temperature 96.9 [degF] 96.9 [degF] eCW1 ( [facility]) Respiratory rate 18 /min 18 /min eCW1 ([facility]) Heart rate 106 /min 106 /min eCW1 ([facility]) Body mass index (BMI) [Ratio] 31.83 kg/m2 31.83 kg/m2 eCW1 ([facility]) Body height 60 [in_us] 60 [in_us] eCW1 ([facility]) Body weight Measured 163.0 [lb_av] 163.0 [lb_av ] eCW1 ([facility]) Diastolic blood pressure 80 mm[Hg] 80 mm[Hg] eCW1 ([facility]) Systolic blood pressure 130 mm[Hg] 130 mm[Hg] e CW1 ([facility]) Body temperature 96.7 [degF] 96.7 [degF] eCW1 ( [facility]) Respiratory rate 18 /min 18 /min eCW1 ([facility]) Heart rate 96 /min 96 /min eCW1 ([facility]) Body mass index (BMI) [Ratio] 31.64 kg/m2 31.64 kg/m2 eCW1 ([facility]) Body height 60 [in_us] 60 [in_us] eCW1 ([facility]) Body weight Measured 162.0 [lb_av] 162.0 [lb_av ] eCW1 ([facility]) Diastolic blood pressure 72 mm[Hg] 72 mm[Hg] eCW1 ([facility]) Systolic blood pressure 118 mm[Hg] 118 mm[Hg] e CW1 ([facility]) Body temperature 98.0 [degF] 98.0 [degF] eCW1 ( [facility]) Respiratory rate 20 /min 20 /min eCW1 ([facility]) Heart rate 98 /min 98 /min eCW1 ([facility]) Body mass index (BMI) [Ratio] 31.56 kg/m2 31.56 kg/m2 eCW1 ([facility]) Body height 60 [in_us] 60 [in_us] eCW1 ([facility]) Body weight Measured 161.6 [lb_av] 161.6 [lb_av ] eCW1 ([facility]) Diastolic blood pressure 86 mm[Hg] 86 mm[Hg] eCW1 ([facility]) Systolic blood pressure 132 mm[Hg] 132 mm[Hg] e CW1 ([facility]) Body temperature 97.6 [degF] 97.6 [degF] eCW1 ( [facility]) Respiratory rate 18 /min 18 /min eCW1 ([facility]) Heart rate 93 /min 93 /min eCW1 ([facility]) Body mass index (BMI) [Ratio] 31.44 kg/m2 31.44 kg/m2 eCW1 ([facility]) Body height 60 [in_us] 60 [in_us] eCW1 ([facility]) Body weight Measured 161 [lb_av] 161 [lb_av] eC W1 ([facility]) Patient Treatment Plan of Care Planned Activity Planned Date Details Description Data Source (s) Acetaminophen 300 MG / Codeine Phosphate 30 MG Oral Tablet [Tylenol with Codeine] 04/06/2020 12:00:00 AM EDT eCW1 ([facility]) Ondansetron 4 MG Oral Tablet [Zofran] 04/06/2020 12:00:00 AM EDT eCW1 ([facility]) Losartan Potassium 50 MG Oral Tablet 01/07/2020 12:00:00 AM EDT eCW1 ([facility]) Losartan Potassium 50 MG Oral Tablet 01/07/2020 12:00:00 AM EDT eCW1 ([facility]) Losartan Potassium 50 MG Oral Tablet 01/07/2020 12:00:00 AM EDT eCW1 ([facility]) Losartan Potassium 50 MG Oral Tablet 01/07/2020 12:00:00 AM EDT eCW1 ([facility]) Losartan Potassium 25 MG Oral Tablet 01/07/2020 12:00:00 AM EDT eCW1 ([facility]) Losartan Potassium 25 MG Oral Tablet 01/07/2020 12:00:00 AM EDT eCW1 ([facility]) Lisinopril 2.5 MG Oral Tablet 12/29/2019 12:00:00 AM EDT eCW1 ([facility]) Lisinopril 2.5 MG Oral Tablet 12/23/2019 12:00:00 AM EST eCW1 ([facility]) Amitriptyline Hydrochloride 25 MG Oral Tablet 12/08/2019 12:00:00 A M EST eCW1 ([facility]) 0.3 ML Epinephrine 1 MG/ML Auto-Injector [Epipen] 12/08/2019 12: 00:00 AM EST eCW1 ([facility]) Amitriptyline Hydrochloride 25 MG Oral Tablet 12/08/2019 12:00:00 A M EST eCW1 ([facility]) Prednisone 20 MG Oral Tablet 11/06/2019 12:00:00 AM EST eCW1 ([facility]) Albuterol Sulfate HFA 108 (90 Base) MCG/ACT 11/04/2019 12:00:00 AM EST eCW1 ([facility]) Doxycycline Monohydrate 100 MG Oral Tablet 11/04/2019 12:00:[address] eCW1 ([facility]) Oseltamivir 75 MG Oral Capsule [Tamiflu] 10/22/2019 12:00:00 AM EST eCW1 ([facility]) Codeine Phosphate 2 MG/ML / Guaifenesin 20 MG/ML Oral Solution 10/22/2019 12:00:00 AM EST eCW1 ([facility])
[2020-12-08] MEDS ORDERED: diphenhydrAMINE 50MG/ML VIAL (J1200) IV ONE (16:45)
[2020-12-08] MEDS ORDERED: NS 1,000 ML IV ONE (16:45)
[2020-12-08] MEDS ORDERED: METOCLOPRAMIDE INJ 10MG/2ML VIAL (J2765 PER 1) IV ONE (16:45)
[2020-12-08] MEDS ORDERED: ACETAMINOPHEN 500 MG TAB PO ONE (16:45)
[2020-12-08] MEDS ORDERED: KETOROLAC 30 MG/ML 1ML VIAL IV ONE (16:45)
[2020-12-08] MEDS ORDERED: LORazepam 2 MG/ML VIAL IV STA (17:54)
[2020-12-08] MEDS ORDERED: dexameTHASONE 4 MG/ML 1ML VIAL (J1100 PER 1MG) IV ONE (18:45)
[2020-12-08] MEDS ORDERED: MAG SULF 1GM/100ML (MAG RUN) 1 GM in IV 1 EA IV ONE (18:45)
[2020-12-08 21:00] VITALS: BP 141/75
--- NOTE | 2020-12-09 08:17 | ECGEPIP ---
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
== END 2020-12-08 21:39 | disposition home or self-care (01) ==
LOC: M ED 14:10
DX: G43.909 Migraine, unspecified, not intractable, without status migrainosus (principal); I10 Essential (primary) hypertension; E03.9 Hypothyroidism, unspecified; Z79.82 Long term (current) use of aspirin; Z79.899 Other long term (current) drug therapy; Z88.8 Allergy status to other drugs, medicaments and biological substances; Z88.1 Allergy status to other antibiotic agents; Z88.5 Allergy status to narcotic agent; Z88.2 Allergy status to sulfonamides; Z91.02 Food additives allergy status; Z91.013 Allergy to seafood
CPT/HCPCS: 80047; 93005; 96365; 96375; 99285; J1100; J1200; J1885; J2060; J2765; J3475

== ENCOUNTER → 2021-03-10 | Outpatient (CLI) | payer OTHER, MEDICAID ==
[~2021-03-10] MED LIST changes: -AMIT10TA PO; +AMIT10TA7 PO; +DULO1CAP4; +LOSA25TA14; +METH-1164
--- NOTE | 2021-03-10 10:40 | REPPI ---
INDICATION: N20.0 KIDNEY STONE. COMPARISON: 01/12/2020 FINDINGS: KUB shows the intestinal gas pattern to be nonspecific. The organ silhouettes insofar as delineated are unremarkable. There is no evidence of free intraperitoneal air. IMPRESSION: No significant change from the prior exam <Electronically signed by Anthony Carrizales > 03/10/21 1038
== END ==
LOC: M PLAIMG 10:18
PROVIDERS: ATTEND Nurse Practitioner Women's Health
DX: N20.0 Calculus of kidney (principal)

== ENCOUNTER → 2021-05-09 | Outpatient (CLI) | payer OTHER ==
[2021-05-09 14:28] LABS: BASO # 0.1 10^3/uL (0.0-0.2); BASO % 1.1 % (0.0-1.0); EOS # 0.6 10^3/uL (0.0-0.5); EOS % 5.2 % (0.0-3.0); HEMATOCRIT 41.3 % (36.0-47.0); HEMOGLOBIN 12.8 g/dl (12.0-15.5); LYMPH # 2.6 10^3/uL (1.5-5.0); LYMPH % 23.9 % (24.0-44.0); MEAN CORPUSCULAR HEMOGLOBIN 28.1 pg (27.0-33.0); MEAN CORPUSCULAR VOLUME 90.6 fl (80.0-96.0); MONO # 0.6 10^3/uL (0.0-0.8); MONO % 5.3 % (2.0-8.0); NEUTROPHILS # 6.9 10^3/uL (1.5-8.5); NEUTROPHILS % 63.9 % (36.0-66.0); PLATELET COUNT, AUTOMATED 371 10^3/uL (150-450); RED BLOOD COUNT 4.56 10^6/uL (4.00-5.40); WHITE BLOOD COUNT 10.9 10^3/uL (4.0-10.0)
[2021-05-09 15:25] LABS: ALBUMIN 3.6 GM/DL (3.2-5.2); ALT/SGPT 28 U/L (12-78); BILIRUBIN,TOTAL 0.3 MG/DL (0.2-1.0); BLOOD UREA NITROGEN 14 MG/DL (7-18); CALCIUM LEVEL 9.2 MG/DL (8.5-10.1); CARBON DIOXIDE LEVEL 29 MEQ/L (21-32); CHLORIDE LEVEL 103 MEQ/L (98-107); CREATININE FOR GFR 0.97 MG/DL (0.55-1.30); FREE T4 0.94 NG/DL (0.76-1.46); GLOMERULAR FILTRATION RATE > 60.0 (>58); GLUCOSE, FASTING 92 MG/DL (70-100); POTASSIUM SERUM 4.1 MEQ/L (3.5-5.1); SODIUM LEVEL 139 MEQ/L (136-145); TOTAL 25(OH) VITAMIN D 52.3 NG/ML (30.0-100.0); TOTAL PROTEIN 7.4 GM/DL (6.4-8.2)
== END ==
LOC: M PLALAB 09:26
PROVIDERS: ATTEND Nurse Practitioner Family
DX: E03.9 Hypothyroidism, unspecified (principal); I10 Essential (primary) hypertension; E55.9 Vitamin D deficiency, unspecified

== ENCOUNTER → 2022-05-15 | Outpatient (CLI) | payer OTHER ==
[~2022-05-15] MED LIST changes: -ACET1TAB16 PO; +ACET300T48 PO; +LOSA25TA13; -LOSA25TA14; +LOSA50TA28 PO; -LOSA50TA88 PO
[2022-05-15 11:57] LABS: BASO # 0.1 10^3/uL (0.0-0.2); EOS # 0.5 10^3/uL (0.0-0.5); EOS % 4.8 % (0.0-3.0); HEMATOCRIT 42.9 % (36.0-47.0); HEMOGLOBIN 13.6 g/dl (12.0-15.5); LYMPH # 2.3 10^3/uL (1.5-5.0); LYMPH % 22.1 % (24.0-44.0); MEAN CORPUSCULAR HEMOGLOBIN 27.9 pg (27.0-33.0); MEAN CORPUSCULAR HGB CONC 31.7 g/dl (32.0-36.5); MEAN CORPUSCULAR VOLUME 87.9 fl (80.0-96.0); MONO # 0.5 10^3/uL (0.0-0.8); MONO % 4.8 % (2.0-8.0); NEUTROPHILS # 7.1 10^3/uL (1.5-8.5); NEUTROPHILS % 66.9 % (36.0-66.0); PLATELET COUNT, AUTOMATED 334 10^3/uL (150-450); RED BLOOD COUNT 4.88 10^6/uL (4.00-5.40); WHITE BLOOD COUNT 10.5 10^3/uL (4.0-10.0)
[2022-05-15 13:02] LABS: ALBUMIN 3.6 GM/DL (3.2-5.2); ALT/SGPT 21 U/L (12-78); BILIRUBIN,TOTAL 0.4 MG/DL (0.2-1.0); BLOOD UREA NITROGEN 8 MG/DL (7-18); CALCIUM LEVEL 9.3 MG/DL (8.5-10.1); CARBON DIOXIDE LEVEL 26 MEQ/L (21-32); CHLORIDE LEVEL 105 MEQ/L (98-107); CREATININE FOR GFR 0.91 MG/DL (0.55-1.30); FREE T4 0.88 NG/DL (0.76-1.46); GLOMERULAR FILTRATION RATE > 60.0 (>58); GLUCOSE, FASTING 98 MG/DL (70-100); POTASSIUM SERUM 4.4 MEQ/L (3.5-5.1); SODIUM LEVEL 138 MEQ/L (136-145); TOTAL PROTEIN 7.5 GM/DL (6.4-8.2)
[2022-05-15 13:30] LABS: TOTAL 25(OH) VITAMIN D 38.1 NG/ML (30.0-100.0)
== END ==
LOC: M LAB 10:56
PROVIDERS: ATTEND Nurse Practitioner Family
DX: E03.9 Hypothyroidism, unspecified (principal); E55.9 Vitamin D deficiency, unspecified; I10 Essential (primary) hypertension

== ENCOUNTER → 2022-10-10 | Outpatient (CLI) | payer OTHER | LOC: M PLAIMG 10:23 | PROVIDERS: ATTEND Nurse Practitioner Family | DX: J40 Bronchitis, not specified as acute or chronic (principal) ==

== ENCOUNTER → 2022-11-29 | Outpatient (CLI) | payer OTHER ==
[2022-11-29 13:05] LABS: ALBUMIN 3.6 G/DL (3.2-5.2); ALKALINE PHOSPHATASE 100 U/L (46-116); ALT/SGPT 25 U/L (7.0-40); AST/SGOT 20 U/L (<34); BILIRUBIN,TOTAL 0.3 MG/DL (0.3-1.2); BLOOD UREA NITROGEN 10 MG/DL (9-23); CALCIUM LEVEL 9.7 MG/DL (8.5-10.1); CARBON DIOXIDE LEVEL 29 MMOL/L (20-31); CHLORIDE LEVEL 104 MMOL/L (98-107); CREATININE FOR GFR 0.82 MG/DL (0.55-1.30); GLOMERULAR FILTRATION RATE > 60.0 (>58); GLUCOSE, FASTING 93 MG/DL (60-100); POTASSIUM SERUM 4.1 MMOL/L (3.5-5.1); SODIUM LEVEL 139 MMOL/L (136-145); TOTAL PROTEIN 6.9 G/DL (5.7-8.2)
[2022-11-29 13:06] LABS: THYROID STIMULATING HORMONE 2.439 uIU/ML (0.55-4.78); TOTAL 25(OH) VITAMIN D 17.9 NG/ML (20.0-100.0)
[2022-11-29 13:07] LABS: FREE T4 1.12 NG/DL (0.89-1.76)
== END ==
LOC: M LAB 11:58
PROVIDERS: ATTEND Nurse Practitioner Family
DX: E03.9 Hypothyroidism, unspecified (principal); E55.9 Vitamin D deficiency, unspecified; I10 Essential (primary) hypertension

== ENCOUNTER 2023-01-14 09:56 | Inpatient (IN) | payer OTHER ==
[~2023-01-14] VITALS: Ht 152.4 cm; Wt 80.3 kg
[2023-01-14] MEDS ORDERED: KETOROLAC 30 MG/ML 1ML VIAL IV ONE (11:35)
[2023-01-14 12:31] LABS: BASO # 0.1 10^3/uL (0.0-0.2); EOS # 0.4 10^3/uL (0.0-0.5); EOS % 3.8 % (0.0-3.0); HEMATOCRIT 42.4 % (36.0-47.0); HEMOGLOBIN 13.6 g/dl (12.0-15.5); LYMPH # 2.2 10^3/uL (1.5-5.0); LYMPH % 21.9 % (24.0-44.0); MEAN CORPUSCULAR HEMOGLOBIN 28.5 pg (27.0-33.0); MEAN CORPUSCULAR HGB CONC 32.1 g/dl (32.0-36.5); MEAN CORPUSCULAR VOLUME 88.9 fl (80.0-96.0); MONO # 0.4 10^3/uL (0.0-0.8); MONO % 4.4 % (2.0-8.0); NEUTROPHILS # 6.9 10^3/uL (1.5-8.5); NEUTROPHILS % 68.5 % (36.0-66.0); PLATELET COUNT, AUTOMATED 360 10^3/uL (150-450); RED BLOOD COUNT 4.77 10^6/uL (4.00-5.40); WHITE BLOOD COUNT 10.1 10^3/uL (4.0-10.0)
[2023-01-14 12:54] LABS: INR 0.92; PROTHROMBIN TIME 12.6 SECONDS (12.5-14.5)
[2023-01-14 12:55] LABS: PARTIAL THROMBOPLASTIN TIME 23.1 SECONDS (24.8-34.2)
[2023-01-14 13:01] LABS: LIPASE 31 U/L (12-53)
[2023-01-14] MEDS ORDERED: ISOVUE-370 76% 100ML VIAL As Ordered ONE (13:03)
[2023-01-14 13:08] LABS: ALBUMIN 3.7 G/DL (3.2-5.2); ALKALINE PHOSPHATASE 98 U/L (46-116); ALT/SGPT 24 U/L (7.0-40); AST/SGOT 23 U/L (<34); BILIRUBIN,DIRECT < 0.1 MG/DL (<0.4); BILIRUBIN,TOTAL 0.4 MG/DL (0.3-1.2); CK-MB VALUE MASS < 1.0 NG/ML (<3.6); TOTAL PROTEIN 7.2 G/DL (5.7-8.2)
[2023-01-14 13:09] LABS: CPK CREATINE PHOSPHOKINASE 62 U/L (34-145); MB/CK RELATIVE INDEX 1.61 (< OR =4)
[2023-01-14 15:47] LABS: ERYTHROCYTE SEDIMENTATION RATE 51 mm/hr (0-20)
[2023-01-14] MEDS ORDERED: fentaNYL 100 MCG/2 ML INJECTION IV PRN (16:00)
[2023-01-14] MEDS ORDERED: carisoprodoL 350 MG TAB PO PRN (23:35)
[2023-01-14] MEDS ORDERED: ACETAMINOPH W/CODEINE #3 TAB UD PO PRN (23:35)
[2023-01-14] MEDS ORDERED: SYNT75TA PO (23:41)
[2023-01-14] MEDS ORDERED: LOSA25TA13 PO (23:41)
[2023-01-14] MEDS ORDERED: DULO60CA35 PO (23:41)
[2023-01-14] MEDS ORDERED: ASPI-161 PO (23:41)
[2023-01-14] MEDS ORDERED: EPIP0.3I2 IM (23:41)
[2023-01-14] MEDS ORDERED: VITA200016 PO (23:41)
[2023-01-14] MEDS ORDERED: HOME MED LIST COMPLETE! XX SCH (23:45)
[2023-01-15] MEDS ORDERED: NS 1,000 ML IV ONE (00:30)
[2023-01-15] MEDS ORDERED: NS 1,000 ML IV SCH (00:30)
[2023-01-15] MEDS: ONDANSETRON 4MG 2ML VIAL IV PRN ×2 (00:37→15:18)
[2023-01-15 02:00] VITALS: BP 136/70
[2023-01-15 05:37] VITALS: BP 105/93
[2023-01-15] MEDS ORDERED: LEVOTHYROXINE 75MCG TABLET (0.075MG) PO SCH (06:00)
[2023-01-15 06:08] LABS: HEMATOCRIT 36.4 % (36.0-47.0); HEMOGLOBIN 11.8 g/dl (12.0-15.5); MEAN CORPUSCULAR HGB CONC 32.4 g/dl (32.0-36.5); MEAN CORPUSCULAR VOLUME 89.4 fl (80.0-96.0); PLATELET COUNT, AUTOMATED 321 10^3/uL (150-450); RED BLOOD COUNT 4.07 10^6/uL (4.00-5.40); WHITE BLOOD COUNT 8.4 10^3/uL (4.0-10.0)
[2023-01-15 06:36] LABS: ALBUMIN 3.1 G/DL (3.2-5.2); ALKALINE PHOSPHATASE 85 U/L (46-116); ALT/SGPT 29 U/L (7.0-40); AST/SGOT 28 U/L (<34); BILIRUBIN,TOTAL 0.5 MG/DL (0.3-1.2); BLOOD UREA NITROGEN 13 MG/DL (9-23); CALCIUM LEVEL 8.1 MG/DL (8.5-10.1); CARBON DIOXIDE LEVEL 29 MMOL/L (20-31); CHLORIDE LEVEL 105 MMOL/L (98-107); CREATININE FOR GFR 0.87 MG/DL (0.55-1.30); GLOMERULAR FILTRATION RATE > 60.0 (>58); GLUCOSE, FASTING 97 MG/DL (60-100); MAGNESIUM LEVEL 1.9 MG/DL (1.8-2.4); SODIUM LEVEL 139 MMOL/L (136-145)
[2023-01-15 08:59] VITALS: BP 133/72
[2023-01-15] MEDS ORDERED: ASPIRIN 81MG ENTERIC TABLET PO SCH (09:00)
[2023-01-15] MEDS ORDERED: DULoxetine 30MG CAPSULE (CYMBALTA) PO SCH (09:00)
[2023-01-15] MEDS ORDERED: predniSONE 20 MG TAB PO SCH (09:00)
[2023-01-15] MEDS ORDERED: LOSARTAN 25 MG TAB PO SCH (09:00)
[2023-01-15] MEDS ORDERED: DICLOFENAC EPOLAMINE 1.3% PATCH TOP SCH (09:00)
[2023-01-15] MEDS ORDERED: ACETAMINOPHEN TAB 650MG DOSE (2X325MG) PO PRN (10:15)
[2023-01-15] MEDS ORDERED: DICL20GE TP (12:41)
[2023-01-15] MEDS ORDERED: PRED10TA2 PO (12:42)
[2023-01-15] MEDS ORDERED: PROT1TAB2 PO (12:43)
[2023-01-15] MEDS ORDERED: AMITRIPTYLINE 25MG TABLET PO SCH (21:00)
== END 2023-01-15 16:00 | disposition home health service (06) | DRG 351 ==
LOC: M ED 09:56 → M ED INP 23:35 → M MS5PR 01-15 01:43
PROVIDERS: ADMIT Internal Medicine; ATTEND Internal Medicine
DX: M25.412 Effusion, left shoulder (principal); I10 Essential (primary) hypertension; E03.9 Hypothyroidism, unspecified; F41.9 Anxiety disorder, unspecified; K21.9 Gastro-esophageal reflux disease without esophagitis; M54.2 Cervicalgia; R20.2 Paresthesia of skin; G43.909 Migraine, unspecified, not intractable, without status migrainosus; Z79.899 Other long term (current) drug therapy; Z88.5 Allergy status to narcotic agent; Z91.013 Allergy to seafood; Z91.018 Allergy to other foods; Z88.2 Allergy status to sulfonamides; Z79.82 Long term (current) use of aspirin

== ENCOUNTER 2023-03-19 16:00 | Outpatient (RCR) | payer OTHER ==
[~2023-03-19 16:00] MED LIST changes: +ASPI-161 PO; -COZA50TA; +DICL20GE TP; +DULO60CA35 PO; +EPIP0.3I2 IM; +LOSA-528; +LOSA25TA13 PO; +PRED10TA2 PO; +PROT1TAB2 PO; +SYNT75TA PO; +VITA200016 PO
== END 2023-03-20 ==
LOC: M PT 16:00
PROVIDERS: ATTEND Orthopaedic Surgery
DX: M25.512 Pain in left shoulder (principal); M67.814 Other specified disorders of tendon, left shoulder

== ENCOUNTER 2023-04-11 09:56 | Outpatient (RCR) | payer OTHER | END 2023-04-19 | LOC: M PT 09:56 | PROVIDERS: ATTEND Orthopaedic Surgery | DX: M25.512 Pain in left shoulder (principal); M67.814 Other specified disorders of tendon, left shoulder ==

== ENCOUNTER → 2023-04-11 | Outpatient (CLI) | payer OTHER ==
[2023-04-11 11:43] LABS: BASO # 0.1 10^3/uL (0.0-0.2); EOS # 0.4 10^3/uL (0.0-0.5); EOS % 4.1 % (0.0-3.0); HEMATOCRIT 42.1 % (36.0-47.0); HEMOGLOBIN 13.4 g/dl (12.0-15.5); LYMPH # 2.6 10^3/uL (1.5-5.0); LYMPH % 28.1 % (24.0-44.0); MEAN CORPUSCULAR HEMOGLOBIN 28.3 pg (27.0-33.0); MEAN CORPUSCULAR HGB CONC 31.8 g/dl (32.0-36.5); MEAN CORPUSCULAR VOLUME 88.8 fl (80.0-96.0); MONO # 0.6 10^3/uL (0.0-0.8); MONO % 6.2 % (2.0-8.0); NEUTROPHILS # 5.7 10^3/uL (1.5-8.5); NEUTROPHILS % 60.3 % (36.0-66.0); PLATELET COUNT, AUTOMATED 343 10^3/uL (150-450); RED BLOOD COUNT 4.74 10^6/uL (4.00-5.40); WHITE BLOOD COUNT 9.4 10^3/uL (4.0-10.0)
[2023-04-11 12:06] LABS: ALBUMIN 3.8 G/DL (3.2-5.2); ALKALINE PHOSPHATASE 93 U/L (46-116); ALT/SGPT 23 U/L (7.0-40); AST/SGOT 11 U/L (<34); BILIRUBIN,TOTAL 0.4 MG/DL (0.3-1.2); BLOOD UREA NITROGEN 13 MG/DL (9-23); CALCIUM LEVEL 8.7 MG/DL (8.5-10.1); CARBON DIOXIDE LEVEL 28 MMOL/L (20-31); CHLORIDE LEVEL 105 MMOL/L (98-107); CHOLESTEROL LEVEL 169 MG/DL (<200); CHOLESTEROL RISK RATIO 3.84 (<5); CREATININE FOR GFR 0.85 MG/DL (0.55-1.30); GLOMERULAR FILTRATION RATE > 60.0 (>58); GLUCOSE, FASTING 79 MG/DL (60-100); HDL CHOLESTEROL 43.9 MG/DL (>40); LDL CHOLESTEROL 96.9 MG/DL (<100); NON-HDL-C 125.1 MG/DL; SODIUM LEVEL 137 MMOL/L (136-145); TRIGLYCERIDES LEVEL 141 MG/DL (<150)
[2023-04-11 12:08] LABS: FREE T4 1.11 NG/DL (0.89-1.76); THYROID STIMULATING HORMONE 2.985 uIU/ML (0.55-4.78); TOTAL 25(OH) VITAMIN D 25.1 NG/ML (20.0-100.0)
[2023-04-11 12:31] LABS: HEMOGLOBIN A1c 5.5 % (4.0-6.0)
== END ==
LOC: M LAB 11:09
PROVIDERS: ATTEND Nurse Practitioner Family
DX: E78.2 Mixed hyperlipidemia (principal); R73.01 Impaired fasting glucose; E03.9 Hypothyroidism, unspecified; I10 Essential (primary) hypertension

== ENCOUNTER 2023-06-25 14:03 | Emergency (ER) | payer OTHER ==
[~2023-06-25] VITALS: Ht 152.4 cm; Wt 77.1 kg
[~2023-06-25 14:03] MED LIST changes: -AMIT25TA17 PO; +AMIT25TA19 PO
[2023-06-25] MEDS ORDERED: dexAMETHasone 20MG/5ML VIAL IV ONE (16:45)
[2023-06-25] MEDS ORDERED: ACETAMINOPHEN *IV* 1,000 MG in IV 1 EA IV ONE (16:45)
[2023-06-25] MEDS ORDERED: NS 1,000 ML IV ONE (16:45)
[2023-06-25] MEDS ORDERED: METOCLOPRAMIDE INJ 10MG/2ML VIAL IV ONE (16:45)
[2023-06-25 17:19] LABS: BASO # 0.1 10^3/uL (0.0-0.2); EOS # 0.3 10^3/uL (0.0-0.5); EOS % 2.8 % (0.0-3.0); HEMATOCRIT 41.4 % (36.0-47.0); HEMOGLOBIN 14.2 g/dl (12.0-15.5); LYMPH # 2.5 10^3/uL (1.5-5.0); LYMPH % 21.7 % (24.0-44.0); MEAN CORPUSCULAR HEMOGLOBIN 30.5 pg (27.0-33.0); MEAN CORPUSCULAR HGB CONC 34.3 g/dl (32.0-36.5); MEAN CORPUSCULAR VOLUME 88.8 fl (80.0-96.0); MONO # 0.6 10^3/uL (0.0-0.8); MONO % 5.3 % (2.0-8.0); NEUTROPHILS # 7.8 10^3/uL (1.5-8.5); NEUTROPHILS % 68.8 % (36.0-66.0); PLATELET COUNT, AUTOMATED 446 10^3/uL (150-450); RED BLOOD COUNT 4.66 10^6/uL (4.00-5.40); WHITE BLOOD COUNT 11.3 10^3/uL (4.0-10.0)
[2023-06-25 17:30] LABS: INR 0.98; PROTHROMBIN TIME 12.7 SECONDS (12.5-14.5)
[2023-06-25 17:33] LABS: D-DIMER QUANT 0.4 ug/mL (<0.5)
[2023-06-25 18:43] LABS: LIPASE 35 U/L (12-53)
[2023-06-25 18:44] LABS: CPK CREATINE PHOSPHOKINASE 54 U/L (34-145)
[2023-06-25 18:45] LABS: ALBUMIN 3.7 G/DL (3.2-5.2); ALKALINE PHOSPHATASE 106 U/L (46-116); ALT/SGPT 21 U/L (7.0-40); AST/SGOT 11 U/L (<34); BILIRUBIN,TOTAL 0.3 MG/DL (0.3-1.2); BLOOD UREA NITROGEN 11 MG/DL (9-23); CARBON DIOXIDE LEVEL 28 MMOL/L (20-31); CHLORIDE LEVEL 102 MMOL/L (98-107); CK-MB VALUE MASS < 1.0 NG/ML (<3.6); CREATININE FOR GFR 0.82 MG/DL (0.55-1.30); GLOMERULAR FILTRATION RATE > 60.0 (>58); GLUCOSE, FASTING 90 MG/DL (60-100); MB/CK RELATIVE INDEX 1.85 (< OR =4); POTASSIUM SERUM 3.8 MMOL/L (3.5-5.1); SODIUM LEVEL 137 MMOL/L (136-145); TOTAL PROTEIN 7.3 G/DL (5.7-8.2)
[2023-06-25 18:46] LABS: T UPTAKE 38.3 % (22.5-37.0)
[2023-06-25 18:47] LABS: FREE THYROXINE INDEX 2.8 % (1.3-4.8); THYROID STIMULATING HORMONE 4.138 uIU/ML (0.55-4.78); THYROXINE (T4) 7.3 UG/DL (4.5-10.9)
[2023-06-25] MEDS ORDERED: MAG SULF 1GM/100ML (MAG RUN) 1 GM in IV 1 EA IV ONE (19:10)
[2023-06-25 19:32] LABS: CK-MB VALUE MASS < 1.0 NG/ML (<3.6)
[2023-06-25 19:35] LABS: CPK CREATINE PHOSPHOKINASE 53 U/L (34-145); MB/CK RELATIVE INDEX 1.88 (< OR =4)
[2023-06-25] MEDS ORDERED: KETOROLAC 30 MG/ML 1ML VIAL IV ONE (23:00)
[2023-06-25 23:04] VITALS: BP 130/75; TEMP 97.8; O2SAT 98
== END 2023-06-25 23:07 | disposition home or self-care (01) ==
LOC: M ED 14:03
DX: R07.9 Chest pain, unspecified (principal); I10 Essential (primary) hypertension; R51.9 Headache, unspecified; Z87.442 Personal history of urinary calculi; Z88.1 Allergy status to other antibiotic agents; Z88.2 Allergy status to sulfonamides; Z88.5 Allergy status to narcotic agent; Z88.8 Allergy status to other drugs, medicaments and biological substances; Z91.013 Allergy to seafood; Z91.018 Allergy to other foods; Z79.811 Long term (current) use of aromatase inhibitors; Z79.82 Long term (current) use of aspirin; Z79.899 Other long term (current) drug therapy
CPT/HCPCS: 36415; 70450; 70544; 70551; 71045; 80047; 80053; 82550; 82553; 83690; 84436; 84443; 84479; 84702; 85025; 85379; 85610; 85730; 93005; 96365; 96366; 96375; 99284; J0131; J1100; J1885; J2765; J3475

== ENCOUNTER → 2023-10-11 | Outpatient (CLI) | payer OTHER ==
[2023-10-11 14:06] LABS: BASO # 0.1 10^3/uL (0.0-0.2); BASO % 0.9 % (0.0-1.0); EOS # 0.2 10^3/uL (0.0-0.5); EOS % 2.3 % (0.0-3.0); HEMOGLOBIN 13.3 g/dl (12.0-15.5); LYMPH # 2.2 10^3/uL (1.5-5.0); MEAN CORPUSCULAR HEMOGLOBIN 28.4 pg (27.0-33.0); MEAN CORPUSCULAR HGB CONC 31.7 g/dl (32.0-36.5); MEAN CORPUSCULAR VOLUME 89.7 fl (80.0-96.0); MONO # 0.5 10^3/uL (0.0-0.8); MONO % 5.4 % (2.0-8.0); NEUTROPHILS # 6.8 10^3/uL (1.5-8.5); NEUTROPHILS % 69.1 % (36.0-66.0); PLATELET COUNT, AUTOMATED 376 10^3/uL (150-450); RED BLOOD COUNT 4.68 10^6/uL (4.00-5.40); WHITE BLOOD COUNT 9.8 10^3/uL (4.0-10.0)
[2023-10-11 14:14] LABS: ALBUMIN 3.6 G/DL (3.2-5.2); ALKALINE PHOSPHATASE 92 U/L (46-116); ALT/SGPT 17 U/L (7.0-40); AST/SGOT 10 U/L (<34); BILIRUBIN,TOTAL 0.5 MG/DL (0.3-1.2); BLOOD UREA NITROGEN 11 MG/DL (9-23); CALCIUM LEVEL 9.3 MG/DL (8.5-10.1); CARBON DIOXIDE LEVEL 29 MMOL/L (20-31); CHLORIDE LEVEL 103 MMOL/L (98-107); CHOLESTEROL LEVEL 170 MG/DL (<200); CHOLESTEROL RISK RATIO 3.85 (<5); CREATININE FOR GFR 0.93 MG/DL (0.55-1.30); GLOMERULAR FILTRATION RATE > 60.0 (>58); GLUCOSE, FASTING 104 MG/DL (60-100); HDL CHOLESTEROL 44.1 MG/DL (>40); LDL CHOLESTEROL 106.1 MG/DL (<100); NON-HDL-C 125.9 MG/DL; POTASSIUM SERUM 4.5 MMOL/L (3.5-5.1); SODIUM LEVEL 138 MMOL/L (136-145); TOTAL PROTEIN 6.9 G/DL (5.7-8.2); TRIGLYCERIDES LEVEL 99 MG/DL (<150)
[2023-10-11 14:21] LABS: FREE T4 0.92 NG/DL (0.89-1.76); THYROID STIMULATING HORMONE 4.323 uIU/ML (0.55-4.78); TOTAL 25(OH) VITAMIN D 27.9 NG/ML (20.0-100.0)
[2023-10-11 14:47] LABS: HEMOGLOBIN A1c 5.4 % (4.0-6.0)
== END ==
LOC: M PLALAB 09:47
PROVIDERS: ATTEND Nurse Practitioner Family
DX: E78.2 Mixed hyperlipidemia (principal); R73.01 Impaired fasting glucose; E03.9 Hypothyroidism, unspecified; I10 Essential (primary) hypertension

== ENCOUNTER → 2023-11-29 | Outpatient (REF) | payer OTHER ==
[2023-11-29 18:43] LABS: APPEARANCE, URINE CLEAR (CLEAR); BACTERIA, URINE AUTO NEGATIVE (NEGATIVE); BILIRUBIN, URINE AUTO NEGATIVE (NEGATIVE); BLOOD, URINE BLOOD 2+ (NEGATIVE); COLOR, URINE YELLOW (YELLOW); GLUCOSE, URINE (UA) AUTO NEGATIVE (NEGATIVE); KETONE, URINE AUTO NEGATIVE (NEGATIVE); LEUKOCYTE ESTERASE, URINE AUTO NEGATIVE (NEGATIVE); NITRITE, URINE AUTO NEGATIVE (NEGATIVE); PROTEIN, URINE AUTO NEGATIVE (NEGATIVE); RBC, URINE AUTO 0 /HPF (0-3); SPECIFIC GRAVITY URINE AUTO 1.024 (1.002-1.035); SQUAMOUS EPITHELIAL CELL UR AU 5 /HPF (0-6); UROBILINOGEN, URINE AUTO 0.2 mg/dL (0.0-2.0); WBC, URINE AUTO 1 /HPF (0-3)
== END ==
LOC: M LAB REF 16:42
PROVIDERS: ATTEND Physician Assistant Medical
DX: N39.0 Urinary tract infection, site not specified (principal)

== ENCOUNTER → 2024-01-24 | Outpatient (CLI) | payer OTHER ==
[~2024-01-24] MED LIST changes: -ASPI-161 PO; +ASPI-615 PO
== END ==
LOC: M WHC 10:24
PROVIDERS: ATTEND Nurse Practitioner Family
DX: R92.2 Inconclusive mammogram (principal)

== ENCOUNTER → 2024-02-06 | Outpatient (CLI) | payer OTHER | LOC: M RAD 16:39 | PROVIDERS: ATTEND Physician Assistant | DX: M77.32 Calcaneal spur, left foot (principal) ==

== ENCOUNTER → 2024-02-12 | Outpatient (CLI) | payer OTHER | LOC: M WHC 12:38 | PROVIDERS: ATTEND Nurse Practitioner Family | DX: R92.8 Other abnormal and inconclusive findings on diagnostic imaging of breast (principal); N63.21 Unspecified lump in the left breast, upper outer quadrant ==

== ENCOUNTER → 2024-03-12 | Outpatient (CLI) | payer OTHER ==
[2024-03-12 10:47] VITALS: TEMP 98.4
[2024-03-12 12:20] VITALS: BP 118/74; O2SAT 99
== END ==
LOC: M WHCPRO 10:27
PROVIDERS: ATTEND Nurse Practitioner Family
DX: R92.8 Other abnormal and inconclusive findings on diagnostic imaging of breast (principal); N63.24 Unspecified lump in the left breast, lower inner quadrant

== ENCOUNTER → 2024-06-01 | Outpatient (REF) | payer OTHER ==
[~2024-06-01] MED LIST changes: +ONDA-282 PO; -ONDA4TAB6 PO
[2024-06-01 17:38] LABS: AMORPHOUS SEDIMENT SMALL (NEGATIVE); APPEARANCE, URINE HAZY (CLEAR); BACTERIA, URINE AUTO NEGATIVE (NEGATIVE); BILIRUBIN, URINE AUTO NEGATIVE (NEGATIVE); BLOOD, URINE BLOOD 1+ (NEGATIVE); COLOR, URINE YELLOW (YELLOW); GLUCOSE, URINE (UA) AUTO NEGATIVE (NEGATIVE); KETONE, URINE AUTO NEGATIVE (NEGATIVE); LEUKOCYTE ESTERASE, URINE AUTO NEGATIVE (NEGATIVE); MUCUS, URINE SMALL (NEGATIVE); NITRITE, URINE AUTO NEGATIVE (NEGATIVE); PROTEIN, URINE AUTO NEGATIVE (NEGATIVE); RBC, URINE AUTO 5 /HPF (0-3); SPECIFIC GRAVITY URINE AUTO 1.018 (1.002-1.035); SQUAMOUS EPITHELIAL CELL UR AU 3 /HPF (0-6); UROBILINOGEN, URINE AUTO 0.2 mg/dL (0.0-2.0); WBC, URINE AUTO 1 /HPF (0-3)
== END ==
LOC: M LAB REF 16:24
PROVIDERS: ATTEND Physician Assistant Medical
DX: N39.0 Urinary tract infection, site not specified (principal)

== ENCOUNTER → 2024-08-19 | Outpatient (CLI) | payer OTHER | LOC: M PLAIMG 11:52 | PROVIDERS: ATTEND Physician Assistant Medical | DX: M25.532 Pain in left wrist (principal) ==

== ENCOUNTER → 2024-10-07 | Outpatient (CLI) | payer OTHER ==
[~2024-10-07] MED LIST changes: -CYCL5TAB PO; +CYCL5TAB4 PO
[2024-10-07 11:06] LABS: BASO # 0.1 10^3/uL (0.0-0.2); BASO % 0.9 % (0.0-1.0); EOS # 0.4 10^3/uL (0.0-0.5); EOS % 3.3 % (0.0-3.0); HEMATOCRIT 40.4 % (36.0-47.0); HEMOGLOBIN 13.2 g/dl (12.0-15.5); LYMPH # 2.5 10^3/uL (1.5-5.0); LYMPH % 22.6 % (24.0-44.0); MEAN CORPUSCULAR HGB CONC 32.7 g/dl (32.0-36.5); MEAN CORPUSCULAR VOLUME 88.8 fl (80.0-96.0); MONO # 0.6 10^3/uL (0.0-0.8); MONO % 5.1 % (2.0-8.0); NEUTROPHILS # 7.4 10^3/uL (1.5-8.5); NEUTROPHILS % 67.6 % (36.0-66.0); PLATELET COUNT, AUTOMATED 437 10^3/uL (150-450); RED BLOOD COUNT 4.55 10^6/uL (4.00-5.40)
[2024-10-07 11:37] LABS: ALBUMIN 3.3 G/DL (3.2-5.2); ALKALINE PHOSPHATASE 93 U/L (35-104); ALT/SGPT 15 U/L (7.0-40); AST/SGOT 13 U/L (<34); BILIRUBIN,TOTAL 0.3 MG/DL (0.3-1.2); BLOOD UREA NITROGEN 9 MG/DL (9-23); CALCIUM LEVEL 9.1 MG/DL (8.5-10.1); CARBON DIOXIDE LEVEL 27 MMOL/L (20-31); CHLORIDE LEVEL 106 MMOL/L (98-107); CHOLESTEROL LEVEL 184 MG/DL (<200); CREATININE FOR GFR 0.88 MG/DL (0.55-1.30); GLOMERULAR FILTRATION RATE > 60.0 (>58); GLUCOSE, FASTING 108 MG/DL (60-100); HDL CHOLESTEROL 41.8 MG/DL (>40); LDL CHOLESTEROL 120.6 MG/DL (<100); NON-HDL-C 142.2 MG/DL; POTASSIUM SERUM 4.3 MMOL/L (3.5-5.1); SODIUM LEVEL 142 MMOL/L (136-145); TRIGLYCERIDES LEVEL 108 MG/DL (<150)
[2024-10-07 11:39] LABS: FREE T4 0.91 NG/DL (0.89-1.76); THYROID STIMULATING HORMONE 8.281 uIU/ML (0.55-4.78)
== END ==
LOC: M LAB 09:31
PROVIDERS: ATTEND Nurse Practitioner Family
DX: E55.9 Vitamin D deficiency, unspecified (principal); E78.2 Mixed hyperlipidemia; I10 Essential (primary) hypertension; E03.9 Hypothyroidism, unspecified

== ENCOUNTER 2024-11-28 09:09 | Observation (INO) | payer OTHER ==
[~2024-11-28] VITALS: Ht 152.4 cm; Wt 80.0 kg
[2024-11-28 09:56] LABS: BASO # 0.1 10^3/uL (0.0-0.2); EOS # 0.3 10^3/uL (0.0-0.5); EOS % 2.5 % (0.0-3.0); HEMATOCRIT 40.8 % (36.0-47.0); HEMOGLOBIN 13.2 g/dl (12.0-15.5); LYMPH # 1.8 10^3/uL (1.5-5.0); LYMPH % 17.1 % (24.0-44.0); MEAN CORPUSCULAR HEMOGLOBIN 29.5 pg (27.0-33.0); MEAN CORPUSCULAR HGB CONC 32.4 g/dl (32.0-36.5); MEAN CORPUSCULAR VOLUME 91.1 fl (80.0-96.0); MONO # 0.6 10^3/uL (0.0-0.8); MONO % 5.6 % (2.0-8.0); NEUTROPHILS # 7.9 10^3/uL (1.5-8.5); NEUTROPHILS % 73.4 % (36.0-66.0); PLATELET COUNT, AUTOMATED 348 10^3/uL (150-450); RED BLOOD COUNT 4.48 10^6/uL (4.00-5.40); WHITE BLOOD COUNT 10.8 10^3/uL (4.0-10.0)
[2024-11-28 10:18] LABS: LIPASE 30 U/L (12-53)
[2024-11-28] MEDS: KETOROLAC 30 MG/ML 1ML VIAL IV ONE ×2 (10:19→15:02)
[2024-11-28] MEDS: LIDOCAINE 5% (LIDODERM) PATCH TD ONE (10:19)
[2024-11-28 10:20] LABS: ALBUMIN 3.4 G/DL (3.2-5.2); ALKALINE PHOSPHATASE 89 U/L (35-104); ALT/SGPT 22 U/L (7.0-40); AST/SGOT 11 U/L (<34); BILIRUBIN,DIRECT 0.1 MG/DL (<0.4); BILIRUBIN,TOTAL 0.4 MG/DL (0.3-1.2); BLOOD UREA NITROGEN 11 MG/DL (9-23); CALCIUM LEVEL 8.4 MG/DL (8.5-10.1); CARBON DIOXIDE LEVEL 27 MMOL/L (20-31); CHLORIDE LEVEL 105 MMOL/L (98-107); CK-MB VALUE MASS < 1.0 NG/ML (<3.6); CPK CREATINE PHOSPHOKINASE 44 U/L (34-145); GLOMERULAR FILTRATION RATE > 60.0 (>58); GLUCOSE, FASTING 115 MG/DL (60-100); MB/CK RELATIVE INDEX 2.27 (< OR =4); SODIUM LEVEL 141 MMOL/L (136-145); TOTAL PROTEIN 6.8 G/DL (5.7-8.2)
[2024-11-28] MEDS: diazePAM 10MG/2ML SYRINGE IV ONE (10:20)
[2024-11-28] MEDS: ACETAMINOPHEN 500 MG TAB PO ONE (10:20)
[2024-11-28 10:22] LABS: FREE T4 1.25 NG/DL (0.89-1.76); THYROID STIMULATING HORMONE 2.092 uIU/ML (0.55-4.78)
[2024-11-28 10:31] LABS: ERYTHROCYTE SEDIMENTATION RATE 41 mm/hr (0-20)
[2024-11-28] MEDS ORDERED: ISOVUE-370 76% 100ML VIAL As Ordered ONE (11:46)
[2024-11-28] MEDS: CYCLOBENZAPRINE 10MG TABLET PO ONE (15:02)
[2024-11-28] MEDS ORDERED: ACETAMINOPHEN 500 MG TAB PO PRN (16:00)
[2024-11-28 16:11] LABS: C REACTIVE PROTEIN QUANTITATIV 0.94 MG/DL (<1.0)
[2024-11-28 16:18] LABS: PROCALCITONIN <0.04 ng/ml
[2024-11-28] MEDS ORDERED: NYST1POW3 TOP (16:21)
[2024-11-28] MEDS ORDERED: PROP10TA56 PO (16:21)
[2024-11-28] MEDS ORDERED: DICL100G10 TOP (16:21)
[2024-11-28] MEDS ORDERED: AMIT10TA7 PO (16:21)
[2024-11-28] MEDS ORDERED: DULO1CAP5 PO (16:21)
[2024-11-28] MEDS ORDERED: HOME MED LIST COMPLETE! XX SCH (16:25)
[2024-11-28 17:11] VITALS: BP 134/73; TEMP 97.3; O2SAT 97
[2024-11-28] MEDS: ENOXAPARIN 40MG/0.4ML SYRINGE (J1650 PER 10MG) SC SCH (17:22)
[2024-11-28] MEDS: predniSONE 10MG TAB PO ONE (17:22)
[2024-11-28 19:50] VITALS: BP 118/61; TEMP 97; O2SAT 95
[2024-11-28] MEDS: diazePAM 5MG TABLET PO ONE (20:23)
[2024-11-28] MEDS ORDERED: CYCLOBENZAPRINE 5MG TABLET PO PRN (21:00)
[2024-11-29] MEDS: KETOROLAC 30 MG/ML 1ML VIAL IV PRN (00:47)
[2024-11-29 04:00] VITALS: BP 121/80; TEMP 97; O2SAT 95
[2024-11-29 06:59] LABS: HEMATOCRIT 39.4 % (36.0-47.0); HEMOGLOBIN 12.6 g/dl (12.0-15.5); MEAN CORPUSCULAR HEMOGLOBIN 28.8 pg (27.0-33.0); PLATELET COUNT, AUTOMATED 366 10^3/uL (150-450); RED BLOOD COUNT 4.38 10^6/uL (4.00-5.40); WHITE BLOOD COUNT 14.9 10^3/uL (4.0-10.0)
[2024-11-29] MEDS ORDERED: NYSTATIN 100,000 UNITS/GM TOPICAL PWD 15GM TOP PRN (07:15)
[2024-11-29 07:24] LABS: BLOOD UREA NITROGEN 12 MG/DL (9-23); CALCIUM LEVEL 8.6 MG/DL (8.5-10.1); CARBON DIOXIDE LEVEL 27 MMOL/L (20-31); CHLORIDE LEVEL 103 MMOL/L (98-107); CREATININE FOR GFR 0.73 MG/DL (0.55-1.30); GLOMERULAR FILTRATION RATE > 60.0 (>58); GLUCOSE, FASTING 124 MG/DL (60-100); POTASSIUM SERUM 4.5 MMOL/L (3.5-5.1); SODIUM LEVEL 140 MMOL/L (136-145)
[2024-11-29] MEDS: ASPIRIN 81MG ENTERIC TABLET PO SCH (08:48)
[2024-11-29] MEDS: predniSONE 20 MG TAB PO SCH (08:48)
[2024-11-29] MEDS: LIDOCAINE 5% (LIDODERM) PATCH TD SCH (08:52)
[2024-11-29] MEDS ORDERED: DICL50TA2 PO (08:56)
[2024-11-29] MEDS ORDERED: PRED20TA PO (08:56)
[2024-11-29] MEDS ORDERED: PROT1TAB2 PO (08:56)
[2024-11-29] MEDS: LEVOTHYROXINE 75MCG TABLET (0.075MG) PO SCH (10:26)
[2024-11-29 10:27] VITALS: BP 121/80
[2024-11-29] MEDS: PROPRANOLOL 10 MG TAB PO SCH (10:27)
[2024-11-29] MEDS ORDERED: DULoxetine 30MG CAPSULE (CYMBALTA) PO SCH (21:00)
[2024-11-29] MEDS ORDERED: AMITRIPTYLINE 10MG TABLET PO SCH (21:00)
[2024-11-30] MEDS ORDERED: DULoxetine 30MG CAPSULE (CYMBALTA) PO SCH (09:00)
== END 2024-11-29 12:30 | disposition home or self-care (01) ==
LOC: M ED 10:18 → M ED INP 15:59 → M MS5PR 17:05
PROVIDERS: ADMIT Internal Medicine; ATTEND Internal Medicine
DX: M54.2 Cervicalgia (principal); E03.9 Hypothyroidism, unspecified; I10 Essential (primary) hypertension; G43.909 Migraine, unspecified, not intractable, without status migrainosus; K21.9 Gastro-esophageal reflux disease without esophagitis; Z79.82 Long term (current) use of aspirin; Z79.52 Long term (current) use of systemic steroids; Z79.899 Other long term (current) drug therapy
CPT/HCPCS: 36415; 70450; 70498; 71045; 72141; 80048; 80076; 82550; 82553; 83690; 84145; 84439; 84443; 84484; 85025; 85027; 85652; 86140; 93005; 93041; 94760; 96374; 96375; 96376; 97161; 99285; J1650; J1885; J3360; J7512; Q9967

== ENCOUNTER → 2025-03-02 | Outpatient (CLI) | payer OTHER ==
[~2025-03-02] MED LIST changes: +DICL100G10 TOP; +DICL50TA2 PO; +DULO1CAP5 PO; -FLOM0.4C39 PO; +NYST1POW3 TOP; +PRED20TA PO; +PROP10TA56 PO; +TAMS-18 PO
[2025-03-02 13:52] LABS: BASO # 0.1 10^3/uL (0.0-0.2); BASO % 0.9 % (0.0-1.0); EOS # 0.3 10^3/uL (0.0-0.5); EOS % 2.6 % (0.0-3.0); HEMATOCRIT 39.1 % (36.0-47.0); HEMOGLOBIN 12.4 g/dl (12.0-15.5); LYMPH % 15.8 % (24.0-44.0); MEAN CORPUSCULAR HEMOGLOBIN 28.9 pg (27.0-33.0); MEAN CORPUSCULAR HGB CONC 31.7 g/dl (32.0-36.5); MEAN CORPUSCULAR VOLUME 91.1 fl (80.0-96.0); MONO # 0.7 10^3/uL (0.0-0.8); MONO % 5.5 % (2.0-8.0); NEUTROPHILS # 9.7 10^3/uL (1.5-8.5); NEUTROPHILS % 74.9 % (36.0-66.0); PLATELET COUNT, AUTOMATED 386 10^3/uL (150-450); RED BLOOD COUNT 4.29 10^6/uL (4.00-5.40); WHITE BLOOD COUNT 12.9 10^3/uL (4.0-10.0)
[2025-03-02 14:20] LABS: FREE T4 1.05 NG/DL (0.89-1.76); THYROID STIMULATING HORMONE 2.041 uIU/ML (0.55-4.78)
[2025-03-02 14:22] LABS: TOTAL 25(OH) VITAMIN D 27.3 NG/ML (20.0-100.0)
[2025-03-02 14:24] LABS: ALBUMIN 3.4 G/DL (3.2-5.2); BILIRUBIN,TOTAL 0.3 MG/DL (0.3-1.2); CALCIUM LEVEL 9.2 MG/DL (8.5-10.1); CHOLESTEROL RISK RATIO 3.7 (<5); CREATININE FOR GFR 0.83 MG/DL (0.55-1.30); GLOMERULAR FILTRATION RATE 86.4 (>58); HDL CHOLESTEROL 44.3 MG/DL (>40); LDL CHOLESTEROL 88.9 MG/DL (<100); NON-HDL-C 119.7 MG/DL; POTASSIUM SERUM 4.2 MMOL/L (3.5-5.1); TOTAL PROTEIN 6.8 G/DL (5.7-8.2)
== END ==
LOC: M PLALAB 11:49
PROVIDERS: ATTEND Nurse Practitioner Family
DX: Z00.00 Encounter for general adult medical examination without abnormal findings (principal); I10 Essential (primary) hypertension; E78.2 Mixed hyperlipidemia; E55.9 Vitamin D deficiency, unspecified; E03.9 Hypothyroidism, unspecified

== ENCOUNTER → 2025-05-25 | Outpatient (REF) | payer OTHER ==
[~2025-05-25] MED LIST changes: +AMIT10TA11 PO; -AMIT10TA7 PO
[2025-05-25 17:15] LABS: APPEARANCE, URINE HAZY (CLEAR); BACTERIA, URINE AUTO 1+ (NEGATIVE); BILIRUBIN, URINE AUTO NEGATIVE (NEGATIVE); BLOOD, URINE BLOOD 2+ (NEGATIVE); CALCIUM OXALATE CRYSTALS SMALL; GLUCOSE, URINE (UA) AUTO NEGATIVE (NEGATIVE); KETONE, URINE AUTO NEGATIVE (NEGATIVE); LEUKOCYTE ESTERASE, URINE AUTO NEGATIVE (NEGATIVE); NITRITE, URINE AUTO NEGATIVE (NEGATIVE); PROTEIN, URINE AUTO NEGATIVE (NEGATIVE); RBC, URINE AUTO 10 /HPF (0-3); SPECIFIC GRAVITY URINE AUTO 1.021 (1.002-1.035); SQUAMOUS EPITHELIAL CELL UR AU 1 /HPF (0-6); UROBILINOGEN, URINE AUTO 0.2 mg/dL (0.0-2.0); WBC, URINE AUTO 1 /HPF (0-3)
== END ==
LOC: M SFHCPLAZ 16:47
PROVIDERS: ATTEND Nurse Practitioner Family
DX: R39.9 Unspecified symptoms and signs involving the genitourinary system (principal)

== ENCOUNTER → 2025-07-07 | Outpatient (CLI) | payer OTHER ==
[2025-07-07 17:20] LABS: BASO # 0.1 10^3/uL (0.0-0.2); BASO % 0.7 % (0.0-1.0); EOS # 0.3 10^3/uL (0.0-0.5); EOS % 2.4 % (0.0-3.0); LYMPH # 2.7 10^3/uL (1.5-5.0); LYMPH % 21.5 % (24.0-44.0); MONO # 0.8 10^3/uL (0.0-0.8); MONO % 6.5 % (2.0-8.0); NEUTROPHILS # 8.6 10^3/uL (1.5-8.5); NEUTROPHILS % 68.6 % (36.0-66.0); PLATELET COUNT, AUTOMATED 366 10^3/uL (150-450)
== END ==
LOC: M PLALAB 15:27
PROVIDERS: ATTEND Nurse Practitioner Family
DX: D72.829 Elevated white blood cell count, unspecified (principal)